=== PATIENT | male | born 1960 | race Caucasian/White ===

== ENCOUNTER 2016-10-10 23:59 | Inpatient (IN) | payer MEDICARE ==
[2016-10-11] MEDS ORDERED: LORazepam INJ* 2 MG/ML 1 ML VIAL IV PUSH ONE (00:12)
[2016-10-11] MEDS ORDERED: Morphine INJ* 10 MG/ML 1 ML SYRINGE ONE (01:27)
[2016-10-11] MEDS ORDERED: Midazolam* 1 MG/ML 5 ML VIAL (5 MG) ONE ×2 (01:27→10:01)
[2016-10-11] MEDS ORDERED: Flumazenil* 0.1 MG/ML 5 ML MDV ONE (02:03)
[2016-10-11] MEDS ORDERED: Midazolam* 1 MG/ML 10 ML VIAL (10 MG) IV ONE (03:30)
--- NOTE | 2016-10-11 03:47 | ED ---
Zunilda Suarez SooYoung, scribed for Deep Adkins MD on 10/11/16 at 0017 . Lower Extremity - HPI Summary HPI Summary: A 56 y/o M HARSHIL presents to ED with c/o L hip pain onset [employer]UP [employer]PER[employer]. Pt states he tripped over an extension cord and landed on his left side. Pert SHx: L-hip replacement two weeks ago in [place]. - History of Current Complaint Chief Complaint: EDHipPelvisInjury Stated Complaint: HIP DISLOCATION Time Seen by Provider: 10/11/16 00:10 Hx Obtained From: Patient Mechanism Of Injury: Fall From A Standing Position Onset of Pain: Immediate, Prior to Arrival Onset/Duration: Still Present Severity Initially: Moderate Severity Currently: Moderate Pain Intensity: 7 Pain Scale Used: 0-10 Numeric Timing: Constant Location: Is Discrete @ - L hip Able to Bear Weight: No - Allergies/Home Medications Allergies/Adverse Reactions: Allergies Allergy/AdvReac Type Severity Reaction Status Date / Time Acetaminophen Allergy Unknown Itching Verified 10/11/16 03:15 [From Darvocet-N] Codeine Allergy Unknown Itching Verified 10/11/16 03:15 Oxycodone [From Percocet] Allergy Unknown Itching Verified 10/11/16 03:15 Propoxyphene Allergy Unknown Itching Verified 10/11/16 03:15 [From Darvocet-N] PMH/Surg Hx/FS Hx/Imm Hx Previously Healthy: No Endocrine/Hematology History: Reports: Hx Anticoagulant Therapy Denies: Hx Diabetes, Hx Anemia, Hx Unexplained Bleeding Cardiovascular History: Reports: Hx Hypertension, Other Cardiovascular Problems/ Disorders - Afib, palpitation Denies: Hx Aneurysm, Hx Angina, Hx Angioplasty, Hx Auto Implanted Cardiovert Defib, Hx Cardiac Arrest, Hx Cardiomegaly, Hx Congenital Heart Disease, Hx Congestive Heart Failure, Hx Coronary Artery Disease, Hx Deep Vein Thrombosis, Hx Embolism, Hx Hypercholesterolemia, Hx Hypotension, Hx Pacemaker/ICD, Hx Peripheral Vascular Disease, Hx Rheumatic Fever, Hx Syncope, Hx Valvular Heart Disease Respiratory History: Reports: Hx Asthma, Hx Pneumonia, Hx Sleep Apnea, Other Respiratory Problems/Disorders - use cpap at home Denies: Hx Chronic Bronchitis, Hx Chronic Obstructive Pulmonary Disease (COPD ), Hx Cystic Fibrosis, Hx Lung Cancer, Hx Pleural Effusion, Hx Pulmonary Edema, Hx Pulmonary Embolism GI History: Denies: Hx Cirrhosis, Hx Crohn's Disease, Hx Obstructive Bowel, Hx Ileostomy , Hx Pyloric Stenosis, Other GI Disorders Musculoskeletal History: Reports: Hx Bursitis - RIGHT LOWER SIDE/BACK Denies: Hx Arthritis, Hx Back Problems, Hx Fibromyalgia, Hx Gout, Hx Orthopedic Injury, Hx Osteoporosis, Hx Scoliosis, Hx Tendonitis, Other Musculoskeletal History Sensory History: Reports: Hx Contacts or Glasses Denies: Hx Cataracts, Hx Eye Injury, Hx Eye Prosthesis, Hx Glaucoma, Hx Legally Blind, Hx Macular Degeneration, Hx Vision Problem, Hx Deafness, Hx Hearing Aid, Hx Hearing Problem, Other Sensory Impairments Opthamlomology History: Reports: Hx Contacts or Glasses Denies: Hx Cataracts, Hx Eye Injury, Hx Eye Prosthesis, Hx Glaucoma, Hx Legally Blind, Hx Macular Degeneration, Hx Vision Problem, Other Sensory Impairments Neurological History: Reports: Other Neuro Impairments/Disorders - Numbness to upper L thigh Denies: Hx Dementia, Hx Developmental Delay, Hx Headaches, Hx Migraine, Hx Nerve Disease, Hx Seizures, Hx Spinal Cord Injury, Hx Transient Ischemic Attacks (TIA) Psychiatric History: Reports: Hx Anxiety, Hx Depression - Cancer History Cancer Type, 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, L breast, L arm Hx Chemotherapy: No Hx Radiation Therapy: No Hx Palliative Cancer Treatment: No - Surgical History Surgery Procedure, Year, and Place: Thyroidectomy; rotator cuff repair bilat; carpal tunnel right hand x 2, Skin tumor removed x2 Hx Anesthesia Reactions: No Infectious Disease History: No Infectious Disease History: Denies: Hx Clostridium Difficile, Hx Hepatitis, Hx Human Immunodeficiency Virus (HIV), Hx of Known/Suspected MRSA, Hx Shingles, Hx Tuberculosis, Hx Known/ Suspected VRE, Hx Known/Suspected VRSA, History Other Infectious Disease, Traveled Outside the [place] in Last 30 Days - Family History Known Family History: Positive: Other - pos: Breast CA, MGM - Social History Occupation: Disabled Lives: Alone Alcohol Use: None Alcohol Amount: 3-4 beers Hx Substance Use: No Substance Use Type: Reports: None Hx Tobacco Use: Yes Smoking Status (MU): Light Every Day Tobacco Smoker Type: Cigarettes Amount Used/How Often: 1ppd Length of Time of Smoking/Using Tobacco: 40yrs Have You Smoked in the Last Year: Yes Review of Systems Negative: Fever Positive: Arthralgia - L hip All Other Systems Reviewed And Are Negative: Yes Physical Exam Triage Information Reviewed: Yes Vital Signs On Initial Exam: Initial Vitals Temp 97.3 F 10/11/16 00:06 Vital Signs Reviewed: Yes Appearance: Positive: Well-Appearing, Pain Distress - moderate pain Skin: Positive: Warm Head/Face: Positive: Normal Head/Face Inspection Eyes: Positive: RYAN ENT: Positive: Hearing grossly normal Neck: Positive: Nontender Respiratory/Lung Sounds: Positive: Breath Sounds Present Cardiovascular: Positive: RRR Abdomen Description: Positive: Nontender, Soft Musculoskeletal: Positive: Other - lt hip shortened, obvious deformity Neurological: Positive: Sensory/Motor Intact Psychiatric: Positive: Affect/Mood Appropriate Diagnostics - Vital Signs Vital Signs Temp Pulse Resp BP Pulse Ox 10/11/16 00:08 97.3 F 88 24 134/77 92 10/11/16 00:06 97.3 F - Laboratory Lab Statement: Any lab studies that have been ordered have been reviewed, and results considered in the medical decision making process. - Radiology CXR Xray Interpretation: Positive (See Comments) - pending reading, see [facility]. Hip/Pelvis Xray Interpretation: Positive (See Comments) - pending reading, see [facility] Pelvis Xray Interpretation: Positive (See Comments) Re-Evaluation - Re-Evaluation 1 Re-Evaluation Time: 01:07 Change: Improved Comment: Discussing XR results with pt, will put hip back into place. unable to reduce hip with conscious sedation, d/w dr calderon, who will admit pt tonight and reduce in or in am Lower Extremity Course/Dx - Course Course Of Treatment: Pt is 56 y/o M HARSHIL who had hip replacement surgery two weeks ago, presents with pain to L hip after tripping and falling. Pt given Ativan, Versed, Morphine in ED. - Diagnoses Provider Diagnoses: Hip dislocation, left - Physician Notifications Discussed Care of Patient With: Dr. Calderon, ortho Time Discussed With Above Provider: 02:14 Instructed by Provider To: Admit As Inpatient - and MD will see in ED tomorrow AM Discharge - Discharge Plan Condition: Fair Disposition: ADMITTED TO [facility] The documentation as recorded by the Zunilda altamirano SooYoung accurately reflects the service I personally performed and the decisions made by me, Deep Adkins MD.
[2016-10-11] MEDS ORDERED: Ondansetron INJ* 2 MG/ML VIAL IV PRN ×2 (03:57→09:55)
[2016-10-11] MEDS ORDERED: HYDROcodone/ACETAMIN 5-325 MG* 1 TAB PO PRN ×2 (03:59)
[2016-10-11] MEDS ORDERED: NS 0.9% 1000 ML* 1,000 ML IV SCH (04:00)
[2016-10-11] MEDS: Morphine INJ* 2 MG/ML 1 ML SYRINGE IV PRN ×3 (05:06→13:57)
--- NOTE | 2016-10-11 07:48 | RAD ---
HISTORY: Fall, recent hip replacement, left hip pain COMPARISONS: None relevant VIEWS: 3, frontal views of the pelvis with frontal and crosstable lateral views of the left hip FINDINGS: BONE DENSITY: Normal. BONES: The patient is status post left hip arthroplasty. There is no hardware failure or osteolysis. There is dislocation of the femoral component with respect to the acetabular component. JOINTS: The patient is status post left hip arthroplasty. There is moderate to advanced osteoarthritis of the right hip ALIGNMENT: As noted above, there is superolateral dislocation of the femoral component with respect to the acetabular component of the left hip arthroplasty SOFT TISSUES: Unremarkable. OTHER FINDINGS: None. IMPRESSION: DISLOCATION OF LEFT HIP PROSTHESIS
--- NOTE | 2016-10-11 07:49 | RAD ---
HISTORY: Hip dislocation COMPARISONS: May 01, 2015 VIEWS:1: Single frontal portable view of the chest at 12:52 AM FINDINGS: LINES AND TUBES: None. CARDIOMEDIASTINAL SILHOUETTE: The cardiac silhouette is mildly enlarged. The cardiomediastinal silhouette is otherwise normal for portable technique. PLEURA: The costophrenic angles are sharp. No pleural abnormalities are noted. LUNG PARENCHYMA: The lungs are clear. ABDOMEN: The upper abdomen is clear. There is no subphrenic gas. BONES AND SOFT TISSUES: No bone or soft tissue abnormalities are noted. IMPRESSION: CARDIOMEGALY. NO ACTIVE CARDIOPULMONARY DISEASE.
--- NOTE | 2016-10-11 07:50 | RAD ---
HISTORY: The dislocation, status post reduction attempt COMPARISONS: Left hip dated October 11, 2016 VIEWS: 1, Single frontal view of the pelvis FINDINGS: BONE DENSITY: Normal. BONES: The patient is status post left hip arthroplasty. JOINTS: The patient is status post left hip arthroplasty. There is osteoarthritis of the right hip ALIGNMENT: There is persistent superolateral dislocation of the left hip prosthesis SOFT TISSUES: Unremarkable. OTHER FINDINGS: None. IMPRESSION: PERSISTENT DISLOCATION OF THE LEFT HIP PROSTHESIS
[2016-10-11] MEDS ORDERED: HYDROmorphone* 1 MG/ML 1 ML SYR ONE (08:14)
[2016-10-11 08:29] LABS: Hematocrit 36 % (42-52); Hemoglobin 12.3 g/dl (14.0-18.0); Mean Corpuscular HGB Conc 34 g/dl (31-36); Mean Corpuscular Hemoglobin 32 pg (27-31); Mean Corpuscular Volume 94 fL (80-94); Mean Platelet Volume 8 um3 (7.4-10.4); Red Blood Count 3.85 10^6/ul (4.0-5.4); Red Cell Distribution Width 13 % (10.5-15); White Blood Count 10.7 10^3/ul (3.5-10.8)
--- NOTE | 2016-10-11 08:35 | PN ---
Progress Note - Progress Note Note: Full note dictated. S/p left total hip by Dr. Holguin on September 24. Fall yesterday on stairs and dislocated hip. No presyncopal symptoms. A/P: left dislocated total hip plan closed reduction
[2016-10-11 08:40] LABS: BUN/Creatinine Ratio 8.2 (8-20); Calcium 8.3 mg/dL (8.6-10.3); EGFR African American 177.2 (>60); EGFR Non-African American 137.7 (>60); Potassium 3.1 mmol/L (3.5-5.0)
--- NOTE | 2016-10-11 08:58 | RAD ---
HISTORY: Preop evaluation COMPARISONS: October 11, 2016 at 12:57 AM VIEWS:1: Single frontal portable view of the chest at 7:34 AM FINDINGS: LINES AND TUBES: None. CARDIOMEDIASTINAL SILHOUETTE: The cardiac silhouette is at the upper limits of normal in size. The cardiac silhouette is otherwise unremarkable.. PLEURA: The costophrenic angles are sharp. No pleural abnormalities are noted. LUNG PARENCHYMA: The lungs are clear. ABDOMEN: The upper abdomen is clear. There is no subphrenic gas. BONES AND SOFT TISSUES: No bone or soft tissue abnormalities are noted. IMPRESSION: NO ACTIVE CARDIOPULMONARY DISEASE.
--- NOTE | 2016-10-11 09:33 | HP ---
CC: Spencer Woodard MD, [facility]. HISTORY AND PHYSICAL: DATE OF ADMISSION: 10/11/16 CHIEF COMPLAINT: Left hip pain. HISTORY OF PRESENT ILLNESS: Mr. Soto is a 56-year-old gentleman, who underwent left total hip replacement surgery on 09/24/[address] Spencer Woodard, who is with [facility]. The surgery was done in [place], [place]. He has a history of AFib and asthma. He tells me this morning, he just takes aspirin for the AFib. He does not require any oxygen or anything like that for his asthma. He does follow with a service center representative here in [place]. He had had an uneventful postop course after the total hip replacement and says he was doing very well until he had a fall on the stairs yesterday, dislocating the total hip. Prior to that, the hip felt stable and really he did not have any issues with it. The pain currently is severe. He denies any numbness or tingling in the feet. He denies any pre-fall dizziness or presyncopal type symptoms, says it was more of a mechanical fall. PAST MEDICAL HISTORY: This is significant for AFib and asthma. He is not on oxygen at home. PAST SURGICAL HISTORY: Left total hip replacement done on 09/24/[address] Woodard. He denies any heart, lungs, or any abdominal surgeries. MEDICATIONS: The patient's home medications were reviewed. These include aspirin and atenolol. ALLERGIES: He has itching with OXYCODONE, CODEINE, DARVOCET. SOCIAL HISTORY: He does live at home in [place]. He is not a smoker. He is on disability and when asked him why, he says it is due to his generalized body pain. REVIEW OF SYSTEMS: As above. This includes left hip pain, otherwise negative. PHYSICAL EXAMINATION GENERAL: Awake, alert, and oriented. Mild distress and discomfort. Mood and affect are normal. EXTREMITIES: Left lower extremity is short and internally rotated. He has good tib ant and gastroc soleus function distally. The leg is warm and well perfused. The pelvis is stable and the knee is nontender without any significant swelling or bruising in his ankle and foot. Right lower extremity assessed good alignment. No tenderness, no pain with logroll. Good neurological function distally. DIAGNOSTIC STUDIES/LAB DATA: Imaging: X-rays of the left pelvis and left hip show a dislocated left total hip prosthesis. IMPRESSION: First time dislocation of left total hip after the hip was put in earlier this month on September 24. This did occur after a mechanical fall. PLAN: We will plan for closed reduction under anesthesia. I think that since this happened with a mechanical fall, he does have a decent chance with the hip being stable after the hip is reduced. We will get the reduction done and then have him follow up with Dr. Woodard and keep him on posterior hip precautions until he follows up with Dr. Woodard. [id number]/[facility] #: [id number] MTDLy
[2016-10-11] MEDS ORDERED: Famotidine IV* 10 MG/ML 2 ML (20 mg) IV ONE (09:52)
[2016-10-11] MEDS ORDERED: Dexamethasone IV* 4 MG/ML 1 ML (4 MG) IV SLOW PU ONE (09:52)
[2016-10-11] MEDS ORDERED: Atenolol TAB* 50 MG PO ONE (09:54)
[2016-10-11] MEDS ORDERED: Levalbuterol 0.63MG/3ML NEB INH ONE (09:55)
[2016-10-11] MEDS ORDERED: HYDROmorphone* 1 MG/ML 1 ML SYR IV PRN (09:55)
[2016-10-11] MEDS ORDERED: fentaNYL* 50 MCG/ML 2 ML VIAL (100 MCG VIAL) IV PRN (09:55)
[2016-10-11] MEDS ORDERED: Atenolol TAB* 25 MG ONE (09:56)
[2016-10-11] MEDS ORDERED: Levalbuterol 1.25MG/0.5ML NEB ONE (09:57)
[2016-10-11] MEDS ORDERED: Famotidine IV* 10 MG/ML 2 ML (20 mg) ONE (09:57)
[2016-10-11] MEDS ORDERED: Dexamethasone IV* 4 MG/ML 1 ML (4 MG) ONE (09:57)
[2016-10-11] MEDS ORDERED: fentaNYL* 50 MCG/ML 2 ML VIAL (100 MCG VIAL) ONE (10:01)
[2016-10-11] MEDS ORDERED: Ondansetron INJ* 2 MG/ML VIAL ONE (10:01)
[2016-10-11] MEDS ORDERED: Ketorolac INJ* 30 MG/ML 1 ML VIAL ONE (10:01)
[2016-10-11] MEDS ORDERED: Chloroprocaine 2%* 20 ML VIAL ONE (10:01)
[2016-10-11] MEDS ORDERED: KETAMINE HCL* 50 MG/ML 10 ML VIAL ONE (10:03)
--- NOTE | 2016-10-11 11:08 | RAD ---
HISTORY: Post reduction after dislocation COMPARISONS: October 11, 2016 at 1:17 AM VIEWS: 2, frontal and frog-leg views of the left hip FINDINGS: BONE DENSITY: Normal. BONES: The patient is status post left hip arthroplasty. There is no hardware failure or osteolysis. JOINTS: There is no arthropathy. ALIGNMENT: There has been interval reduction of the dislocation. Alignment is anatomic SOFT TISSUES: Unremarkable. OTHER FINDINGS: None. IMPRESSION: STATUS POST LEFT HIP ARTHROPLASTY. INTERVAL REDUCTION OF DISLOCATION
[2016-10-11] MEDS ORDERED: EPHEDrine (Pressors)* 50 MG/ML VIAL ONE (11:35)
[2016-10-11] MEDS ORDERED: Phenylephrine INJ* 10 MG/ML 1 ML VIAL (10 MG) ONE (11:35)
[2016-10-11] MEDS ORDERED: Phenylephrine IV* 40 MCG/ML 10 ML SYRINGE ONE (11:35)
[2016-10-11] MEDS ORDERED: Ibuprofen TAB* 600 MG PO PRN (14:23)
[2016-10-11] MEDS ORDERED: oxyCODONE TAB* 5 MG TAB PO PRN ×2 (14:42→14:43)
[2016-10-11] MEDS ORDERED: Nicotine Inhaler* 10 MG AMP Q2H PRN CRAVING INH (18:00)
[2016-10-11] MEDS ORDERED: Mouth Piece, Nicotine* 1 EACH CARTRIDGE INH ONE (18:00)
[2016-10-11 18:38] VITALS: BP 133/77
--- NOTE | 2016-10-11 19:44 | PN ---
Progress Note - Progress Note Note: I was called by the floor stating that Mr. Soto was agitated and wanted to leave the hospital. I spoke with Mr. Soto to gauge whether or not he was confused. He is awake, alert, and oriented to person, place, and time. He knows where he is going and will have a financial coach with him at home tonight. I reviewed posterior hip precautions with him and he was able to tell me all the body positions he needs to avoid. I counseled with him to sleep with the abductor pillow for a few nights. He has an appointment with Dr. Holguin this Thursday. We will discharge him at this time.
--- NOTE | 2016-10-11 20:27 | OP ---
OPERATIVE REPORT: DATE OF OPERATION: 10/11/16 - inpatient, room #336-01 DATE OF : 64 SURGEON: Gonzalo Hammer MD POLITICAL SCIENCE CHAIR: FAVIAN Powell ANESTHESIOLOGIST: Dr. Nation. ANESTHESIA: Spinal. PRE-OP DIAGNOSIS: Dislocated left total hip replacement. POST-OP DIAGNOSIS: Dislocated left total hip replacement. OPERATIVE PROCEDURE: Closed reduction of left total hip dislocation. INDICATIONS: Jairo had his total hip done by Dr. Spencer Woodard on 09/24/16, done in [place], [place]. He had a fall at home and dislocated the hip. He came in and was admitted overnight to the hospital and is brought for closed reduction of the hip now. We had discussed the risks of recurrent instability and fracture during the closed reduction. I told him that we would not be opening it to reduce it and if it would stay dislocated, I would send him down to [place] to have Dr. Woodard address this further. ESTIMATED BLOOD LOSS: None. COMPLICATIONS: None. FINDINGS: None. DESCRIPTION OF PROCEDURE: Jairo was seen in the preoperative holding area and the correct side, site, and procedure were identified. We came back to the operating room where spinal was performed. After we had a formal time-out, I flexed the hip and pulled traction through the hip while I gently internally and externally rotated the hip. The hip was felt to slide back into place. The leg was brought back out into extension and laid on the bed. I brought in the portable x-ray machine and an AP and frog leg lateral of the hip were obtained, which showed reduction of the total hip replacement. He was then placed in an abduction pillow and taken to the recovery room in stable condition. POSTOPERATIVE PLAN: We will wait until the spinal wears off and then we will have him work with the therapist to review posterior hip precautions. I think there is a decent chance that the hip will be stable since it dislocated after a pretty significant fall at home. I will have him follow up with Dr. Woodard. [id number]/[facility] #: [id number] [facility]
--- NOTE | 2016-10-12 01:50 | DS ---
DISCHARGE SUMMARY: DATE OF ADMISSION: 10/11/16 DATE OF DISCHARGE: 10/11/16 PROVIDER: Dr. Gonzalo Hammer. ADMITTING DIAGNOSIS: Left total hip replacement dislocation. DISCHARGE DIAGNOSIS: Left total hip replacement dislocation, status post closed reduction under anesthesia. HISTORY OF PRESENT ILLNESS: Mr. Soto is a 56-year-old gentleman, who presented to the emergency room after a fall earlier in the day. He states that he underwent a left total hip replacement by Dr. Spencer Woodard through [facility] on 09/24/16. He has been doing well since the time of the surgery. However, he did trip and fall on the stairs. Prior to that, his hip felt stable and he had no issues. There was no evidence of a syncopal event. HOSPITAL COURSE: On 10/11/16, the patient was admitted to the short stay surgical unit through the emergency department. He underwent closed reduction of the hip dislocation under spinal anesthetic with no complications. He recovered briefly in the postanesthesia care unit and was transferred to the short stay surgical unit in stable condition. The patient's pain was well controlled after the spinal medication wore off. He was then anxious to be discharged home. The patient did have some abnormalities on his chemistry for which further monitoring was preferred. However, the patient was anxious to be discharged home. He spoke with Dr. Hammer via telephone just prior to discharge , who felt that the patient was alert and oriented to person, place, and time and in a good mental status. He was able to review posterior hip precautions with the patient and the patient also has someone to look after him through the weekend. For this reason, he was found to be discharged home in stable condition. DISCHARGE MEDICATIONS: The patient will be discharged home to resume his home medications of: 1. Crabtree 5/325 mg 1 to 2 tabs p.o. q.4 to 6 hours p.r.n. 2. Norvasc 5 mg p.o. q. day. 3. Omeprazole 40 mg p.o. q. day. 4. Multivitamin 1 tab p.o. q. day. 5. Dulera inhaler 2 puffs inhaled b.i.d. 6. Gabapentin 300 mg p.o. t.i.d. and 300 mg p.o. q.h.s. 7. Cymbalta 60 mg p.o. q. day. 8. Atenolol 100 mg p.o. q. day. 9. Aspirin 81 mg p.o. q. day. 10. Amitriptyline 150 mg p.o. q.h.s. 11. Albuterol inhaler 2 puffs inhaled b.i.d. p.r.n. 12. Ibuprofen 600 mg p.o. q.6 hours p.r.n. DISCHARGE INSTRUCTIONS: The patient is understanding to call Dr. Woodard's office this week and followup for the hip dislocation. He is understanding to return to the emergency room with any significant hip pain, chest pain, shortness of breath, fever greater than 101.5, calf pain or swelling. All of the patient's questions were answered to his full satisfaction. FAVIAN DUKE [id number]/[facility] #: [id number] JESE
== END 2016-10-11 19:56 | disposition home or self-care (01) | DRG 561 ==
LOC: ED 23:59 → SSU 10-11 04:09
PROVIDERS: ADMIT Orthopaedic Surgery Hand Surgery; ATTEND Orthopaedic Surgery Hand Surgery
PROC: 0SWBXJZ Revision of Synthetic Substitute in Left Hip Joint, External Approach (ICD-10-PCS; principal; 2016-10-11 10:00)
DX: T84.021A Dislocation of internal left hip prosthesis, initial encounter (principal); I48.91 Unspecified atrial fibrillation; I10 Essential (primary) hypertension; W01.0XXA Fall on same level from slipping, tripping and stumbling without subsequent striking against object, initial encounter; J45.909 Unspecified asthma, uncomplicated; F41.9 Anxiety disorder, unspecified; F32.9 Major depressive disorder, single episode, unspecified; F17.210 Nicotine dependence, cigarettes, uncomplicated; R45.1 Restlessness and agitation; E66.9 Obesity, unspecified; G47.33 Obstructive sleep apnea (adult) (pediatric); Y79.2 Prosthetic and other implants, materials and accessory orthopedic devices associated with adverse incidents; Z88.6 Allergy status to analgesic agent; Z88.5 Allergy status to narcotic agent; Z88.8 Allergy status to other drugs, medicaments and biological substances; Z87.01 Personal history of pneumonia (recurrent); Z85.828 Personal history of other malignant neoplasm of skin; Z85.3 Personal history of malignant neoplasm of breast; Z85.89 Personal history of malignant neoplasm of other organs and systems; Z80.3 Family history of malignant neoplasm of breast; Y92.008 Other place in unspecified non-institutional (private) residence as the place of occurrence of the external cause; Z68.27 Body mass index [BMI] 27.0-27.9, adult; Z79.82 Long term (current) use of aspirin
CPT/HCPCS: 36415; 71010; 72170; 80048; 85027; 85610; 99406; A9270-GY; J1100; J1170; J1885; J2060; J2250; J2270; J2400; J2405; J3010

== ENCOUNTER 2017-02-09 23:05 | Emergency (ER) | payer MEDICARE ==
[2017-02-10] MEDS ORDERED: NS 0.9% 1000 ML* 1,000 ML IV SCH (01:30)
[2017-02-10 02:19] LABS: Hematocrit 43 % (42-52); Hemoglobin 14.5 g/dl (14.0-18.0); Mean Corpuscular HGB Conc 34 g/dl (31-36); Mean Corpuscular Hemoglobin 33 pg (27-31); Mean Corpuscular Volume 97 fL (80-94); Mean Platelet Volume 8 um3 (7.4-10.4); Red Blood Count 4.43 10^6/ul (4.0-5.4); Red Cell Distribution Width 16 % (10.5-15); White Blood Count 8.6 10^3/ul (3.5-10.8)
[2017-02-10 02:36] LABS: Albumin 3.9 g/dL (3.2-5.2); BUN/Creatinine Ratio 10.1 (8-20); C Reactive Protein 23.2 mg/L (< 5.00); EGFR African American 114.6 (>60); EGFR Non-African American 89.1 (>60); Globulin 4.1 g/dL (2-4); Magnesium 1.8 mg/dL (1.9-2.7); Potassium 3.4 mmol/L (3.5-5.0); Total Bilirubin 0.4 mg/dL (0.2-1.0)
[2017-02-10 02:44] LABS: TSH (Thyroid Stimulating Horm) 6.5 mcIU/mL (0.34-5.60)
[2017-02-10 03:12] LABS: Urine Bilirubin Negative (Negative); Urine Glucose Negative (Negative); Urine Nitrite Negative (Negative)
[2017-02-10 04:21] VITALS: BP 94/65
[2017-02-10] MEDS ORDERED: Magnesium Oxide TAB* 400 MG PO ONE (04:24)
[2017-02-10] MEDS ORDERED: Potassium Chlor TAB* 20 MEQ TAB.ER PO ONE (04:24)
[2017-02-10 05:05] LABS: Free T4 0.89 ng/dL (0.61-1.12)
[2017-02-10 05:59] LABS: Total T3 0.95 ng/mL (0.87-1.78)
--- NOTE | 2017-02-10 06:56 | RAD ---
INDICATION: Bilateral arm tingling 3 days after head trauma COMPARISON: Chest x-ray dated October 11, 2016 TECHNIQUE: Single AP portable view of the chest was obtained. FINDINGS: Image quality is compromised due to the relative inferiority of a portable chest x-ray. The heart and mediastinum exhibit normal size and contour. The lungs are grossly clear. There is no evidence of a large pleural effusion. Visualized bones are normal for the patient's age. IMPRESSION: No radiographic evidence for acute cardiopulmonary abnormality on this portable chest x-ray.
--- NOTE | 2017-02-10 06:58 | RAD ---
INDICATION: Foot and ankle injury 3 days earlier COMPARISON: None. TECHNIQUE: 3 views of the left ankle and 3 views of the left foot were obtained. FINDINGS: The bones of the ankle are well-corticated and appropriately aligned. The ankle mortise is symmetric. There is no asymmetric swelling overlying either malleolus. Best depicted on the oblique view of the foot, there is the appearance of a slightly displaced fracture at the distal head of the fourth metatarsal. There is a small degree of impaction. The remaining visualized bones are intact and appropriately aligned. IMPRESSION: QUESTIONABLE MINIMALLY IMPACTED FRACTURE INVOLVING THE DISTAL HEAD OF THE LEFT FOURTH METATARSAL. PLEASE CORRELATE TO THE PATIENT'S PHYSICAL EXAMINATION. If the patient's symptoms persist, follow-up imaging is recommended.
--- NOTE | 2017-02-10 07:00 | RAD ---
INDICATION: Right hip pain 3 days after trip and fall injury in a patient 3 weeks status post right hip JESSICA COMPARISON: Preoperative radiograph October 11, 2016 TECHNIQUE: 3 views of the right hip were obtained. FINDINGS: In the AP projection the bilateral hip prostheses are anatomically aligned. The right hip prosthesis is anatomically aligned in the AP and lateral projections. There is no evidence of periprosthetic fracture or loosening. Visualized bones are otherwise intact and appropriately aligned. IMPRESSION: Anatomic alignment of bilateral hip prostheses. If the patient's symptoms persist follow-up imaging is recommended.
--- NOTE | 2017-02-10 07:03 | ED ---
Shellie Suarez Nilda, scribed for Easton Aviles MD on 02/10/17 at 0429 . Adult Trauma - HPI Summary HPI Summary: Pt is a 56 y.o M presenting to [facility] s/p a fall that occurred 2 days ago. The patient tripped over wood in his lawn and could not get up for 30 mins due to his hip replacements. Patient reports that he can ambulate (though experiences pain). He notes left ankle and foot pain, left elbow pain, right hip pain, and intermittent bilateral arm tingling (exacerbated a few hours after his fall but has been present for a few months). Arm tingling is aggravated by movement. Patient denies arm pain, headache, neck pain, CP, N/V, diaphoresis, SOB, and abdominal pain. PMHx of mild FL 2 years ago that was treated with medication. During that FL, he experienced both CP and arm tingling. Patient is currently on atenolol, 81 mg aspirin, and GERD medication. He is currently not on HLD medication. - History of Current Complaint Chief Complaint: EDChestPainROMI Stated Complaint: CHEST PAIN, HIP PAIN, FOOT PAIN Time Seen by Provider: 02/10/17 01:04 Hx Obtained From: Patient Mechanism of Injury: Fall Ambulatory at the Scene: Yes - abulatory with pain after 30 mins s/p fall Onset Severity: Severe Current Severity: Severe Pain Intensity: 8 Pain Scale Used: 0-10 Numeric Location: Other - left ankle pain, left foot pain, left elbow pain, right hip pain Aggravating Factor(s): Movement, Ambulation Associated Signs & Symptoms: Positive: Numbness/Weakness - bilateral arm tingling, Ecchymosis - Additional Pertinent History Primary Care Physician: [id number] - Allergy/Home Medications Allergies/Adverse Reactions: Allergies Allergy/AdvReac Type Severity Reaction Status Date / Time Acetaminophen AdvReac Unknown Itching Verified 02/09/17 23:25 [From Darvocet-N] Codeine AdvReac Unknown Itching Verified 02/09/17 23:25 Oxycodone [From Percocet] AdvReac Unknown Itching Verified 02/09/17 23:25 Propoxyphene AdvReac Unknown Itching Verified 02/09/17 23:25 [From Darvocet-N] PMH/Surg Hx/FS Hx/Imm Hx Endocrine/Hematology History: Reports: Hx Anticoagulant Therapy Denies: Hx Diabetes, Hx Anemia, Hx Unexplained Bleeding Cardiovascular History: Reports: Hx Hypertension, Other Cardiovascular Problems/ Disorders - Afib, palpitation Denies: Hx Aneurysm, Hx Angina, Hx Angioplasty, Hx Auto Implanted Cardiovert Defib, Hx Cardiac Arrest, Hx Cardiomegaly, Hx Congenital Heart Disease, Hx Congestive Heart Failure, Hx Coronary Artery Disease, Hx Deep Vein Thrombosis, Hx Embolism, Hx Hypercholesterolemia, Hx Hypotension, Hx Pacemaker/ICD, Hx Peripheral Vascular Disease, Hx Rheumatic Fever, Hx Syncope, Hx Valvular Heart Disease Respiratory History: Reports: Hx Asthma, Hx Pneumonia, Hx Sleep Apnea, Other Respiratory Problems/Disorders - use cpap at home Denies: Hx Chronic Bronchitis, Hx Chronic Obstructive Pulmonary Disease (COPD ), Hx Cystic Fibrosis, Hx Lung Cancer, Hx Pleural Effusion, Hx Pulmonary Edema, Hx Pulmonary Embolism GI History: Denies: Hx Cirrhosis, Hx Crohn's Disease, Hx Obstructive Bowel, Hx Ileostomy , Hx Pyloric Stenosis, Other GI Disorders Musculoskeletal History: Reports: Hx Bursitis - RIGHT LOWER SIDE/BACK Denies: Hx Arthritis, Hx Back Problems, Hx Fibromyalgia, Hx Gout, Hx Orthopedic Injury, Hx Osteoporosis, Hx Scoliosis, Hx Tendonitis, Other Musculoskeletal History Sensory History: Reports: Hx Contacts or Glasses Denies: Hx Cataracts, Hx Eye Injury, Hx Eye Prosthesis, Hx Glaucoma, Hx Legally Blind, Hx Macular Degeneration, Hx Vision Problem, Hx Deafness, Hx Hearing Aid, Hx Hearing Problem, Other Sensory Impairments Opthamlomology History: Reports: Hx Contacts or Glasses Denies: Hx Cataracts, Hx Eye Injury, Hx Eye Prosthesis, Hx Glaucoma, Hx Legally Blind, Hx Macular Degeneration, Hx Vision Problem, Other Sensory Impairments Neurological History: Reports: Other Neuro Impairments/Disorders - Numbness to upper L thigh Denies: Hx Dementia, Hx Developmental Delay, Hx Headaches, Hx Migraine, Hx Nerve Disease, Hx Seizures, Hx Spinal Cord Injury, Hx Transient Ischemic Attacks (TIA) Psychiatric History: Reports: Hx Anxiety, Hx Depression - Cancer History Cancer Type, 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, L breast, L arm Hx Chemotherapy: No Hx Radiation Therapy: No Hx Palliative Cancer Treatment: No - Surgical History Surgery Procedure, Year, and Place: Thyroidectomy; rotator cuff repair bilat; carpal tunnel right hand x 2, Skin tumor removed x2 Hx Anesthesia Reactions: No Infectious Disease History: No Infectious Disease History: Denies: Hx Clostridium Difficile, Hx Hepatitis, Hx Human Immunodeficiency Virus (HIV), Hx of Known/Suspected MRSA, Hx Shingles, Hx Tuberculosis, Hx Known/ Suspected VRE, Hx Known/Suspected VRSA, History Other Infectious Disease, Traveled Outside the [place] in Last 30 Days - Family History Known Family History: Positive: Other - pos: Breast CA, MGM - Social History Alcohol Use: None Alcohol Amount: 3-4 beers Hx Substance Use: No Substance Use Type: Reports: None Hx Tobacco Use: Yes Smoking Status (MU): Former Smoker Type: Cigarettes Amount Used/How Often: 1ppd Length of Time of Smoking/Using Tobacco: 40yrs Have You Smoked in the Last Year: Yes Review of Systems Negative: Skin Diaphoresis Negative: Chest Pain Negative: Shortness Of Breath Negative: Abdominal Pain, Vomiting, Nausea Positive: Other - left ankle pain, left foot pain, left elbow pain, right hip pain; negative: arm pain, neck pain, Positive: Numbness - intermittent bilateral arm tingling. Negative: Headache All Other Systems Reviewed And Are Negative: Yes Physical Exam - Summary Physical Exam Summary: General: well-appearing, no pain distress Skin: warm, color reflects adequate perfusion, dry Head: normal Eyes: EOMI, RYAN ENT: normal Neck: supple, nontender Respiratory: wheezing bilaterally Cardiovascular: RRR, pulses 2+, good capillary refill Abdomen: soft, nontender Bowel: present Musculoskeletal: strength/ROM intact, swelling left ankle and left foot tenderness to palpation, right greater trochanter tenderness. Neurological: normal, sensory/motor intact, A&O x3 Psychological: affect/mood appropriate Triage Information Reviewed: Yes Vital Signs On Initial Exam: Initial Vitals Temp Pulse Resp BP Pulse Ox 97.2 F 85 18 128/72 92 02/09/17 23:23 02/09/17 23:23 02/09/17 23:23 02/09/17 23:23 02/09/17 23:23 Vital Signs Reviewed: Yes Diagnostics - Vital Signs Vital Signs Temp Pulse Resp BP Pulse Ox 02/10/17 00:30 76 26 120/73 92 02/10/17 00:18 77 19 94 02/10/17 00:16 131/76 02/09/17 23:23 97.2 F 85 18 128/72 92 - Laboratory Lab Results: Lab Results 02/10/17 02/10/17 02/10/17 Range/Units 02:04 02:04 02:04 WBC (3.5-10.8) 10^3/ul RBC (4.0-5.4) 10^6/ul Hgb (14.0-18.0) g/dl Hct (42-52) % MCV (80-94) fL MCH (27-31) pg MCHC (31-36) g/dl RDW (10.5-15) % Plt Count (150-450) 10^3/ul MPV (7.4-10.4) um3 Neut % (Auto) (38-83) % Lymph % (Auto) (25-47) % [place] % (Auto) (1-9) % Eos % (Auto) (0-6) % Baso % (Auto) (0-2) % Absolute Neuts (auto) (1.5-7.7) 10^3/ul Absolute Lymphs (auto) (1.0-4.8) 10^3/ul Absolute Monos (auto) (0-0.8) 10^3/ul Absolute Eos (auto) (0-0.6) 10^3/ul Absolute Basos (auto) (0-0.2) 10^3/ul Absolute Nucleated RBC 10^3/ul Nucleated RBC % INR (Anticoag Therapy) 0.87 L (0.89-1.11) APTT 28.1 (26.0-36.3) seconds Sodium 131 L (133-145) mmol/L Potassium 3.4 L (3.5-5.0) mmol/L Chloride 95 L (101-111) mmol/L Carbon Dioxide 25 (22-32) mmol/L Anion Gap 11 (2-11) mmol/L BUN 9 (6-24) mg/dL Creatinine 0.89 (0.67-1.17) mg/dL Est GFR ( Amer) 114.6 (>60) Est GFR (Non-Af Amer) 89.1 (>60) BUN/Creatinine Ratio 10.1 (8-20) Glucose 84 (70-100) mg/dL Lactic Acid (0.5-2.0) mmol/L Calcium 9.0 (8.6-10.3) mg/dL Magnesium 1.8 L (1.9-2.7) mg/dL Total Bilirubin 0.40 (0.2-1.0) mg/dL AST 19 (13-39) U/L ALT 11 (7-52) U/L Alkaline Phosphatase 88 (34-104) U/L Total Creatine Kinase 50 (10-223) U/L CK-MB (CK-2) 4.5 (0.6-6.3) ng/mL Troponin I 0.00 (<0.04) ng/mL C-Reactive Protein 23.20 H (< 5.00) mg/L B-Natriuretic Peptide 26 ( - 100) pg/mL Total Protein 8.0 (6.4-8.9) g/dL Albumin 3.9 (3.2-5.2) g/dL Globulin 4.1 H (2-4) g/dL Albumin/Globulin Ratio 1.0 (1-3) Lipase 39 (11.0-82.0) U/L TSH 6.50 H (0.34-5.60) mcIU/mL Free T4 0.89 (0.61-1.12) ng/dL Total T3 0.95 (0.87-1.78) ng/mL Urine Color Urine Appearance Urine pH (5-9) Ur Specific [place] (1.010-1.030) Urine Protein (Negative) Urine Ketones (Negative) Urine Blood (Negative) Urine Nitrate (Negative) Urine Bilirubin (Negative) Urine Urobilinogen (Negative) Ur Leukocyte Esterase (Negative) Urine Glucose (Negative) 02/10/17 02/10/17 02/10/17 Range/Units 02:04 02:55 02:55 WBC 8.6 (3.5-10.8) 10^3/ul RBC 4.43 (4.0-5.4) 10^6/ul Hgb 14.5 (14.0-18.0) g/dl Hct 43 (42-52) % MCV 97 H (80-94) fL MCH 33 H (27-31) pg MCHC 34 (31-36) g/dl RDW 16 H (10.5-15) % Plt Count 338 (150-450) 10^3/ul MPV 8 (7.4-10.4) um3 Neut % (Auto) 52.7 (38-83) % Lymph % (Auto) 28.7 (25-47) % [place] % (Auto) 10.2 H (1-9) % Eos % (Auto) 8.1 H (0-6) % Baso % (Auto) 0.3 (0-2) % Absolute Neuts (auto) 4.6 (1.5-7.7) 10^3/ul Absolute Lymphs (auto) 2.5 (1.0-4.8) 10^3/ul Absolute Monos (auto) 0.9 H (0-0.8) 10^3/ul Absolute Eos (auto) 0.7 H (0-0.6) 10^3/ul Absolute Basos (auto) 0 (0-0.2) 10^3/ul Absolute Nucleated RBC 0 10^3/ul Nucleated RBC % 0 INR (Anticoag Therapy) (0.89-1.11) APTT (26.0-36.3) seconds Sodium (133-145) mmol/L Potassium (3.5-5.0) mmol/L Chloride (101-111) mmol/L Carbon Dioxide (22-32) mmol/L Anion Gap (2-11) mmol/L BUN (6-24) mg/dL Creatinine (0.67-1.17) mg/dL Est GFR ( Amer) (>60) Est GFR (Non-Af Amer) (>60) BUN/Creatinine Ratio (8-20) Glucose (70-100) mg/dL Lactic Acid 0.9 (0.5-2.0) mmol/L Calcium (8.6-10.3) mg/dL Magnesium (1.9-2.7) mg/dL Total Bilirubin (0.2-1.0) mg/dL AST (13-39) U/L ALT (7-52) U/L Alkaline Phosphatase (34-104) U/L Total Creatine Kinase (10-223) U/L CK-MB (CK-2) (0.6-6.3) ng/mL Troponin I (<0.04) ng/mL C-Reactive Protein (< 5.00) mg/L B-Natriuretic Peptide ( - 100) pg/mL Total Protein (6.4-8.9) g/dL Albumin (3.2-5.2) g/dL Globulin (2-4) g/dL Albumin/Globulin Ratio (1-3) Lipase (11.0-82.0) U/L TSH (0.34-5.60) mcIU/mL Free T4 (0.61-1.12) ng/dL Total T3 (0.87-1.78) ng/mL Urine Color Straw Urine Appearance Clear Urine pH 5.0 (5-9) Ur Specific [place] 1.002 L (1.010-1.030) Urine Protein Negative (Negative) Urine Ketones Negative (Negative) Urine Blood Negative (Negative) Urine Nitrate Negative (Negative) Urine Bilirubin Negative (Negative) Urine Urobilinogen Negative (Negative) Ur Leukocyte Esterase Negative (Negative) Urine Glucose Negative (Negative) Result Diagrams: 02/10/17 02:04 02/10/17 02:04 Lab Statement: Any lab studies that have been ordered have been reviewed, and results considered in the medical decision making process. - Radiology Hip XR Xray Interpretation: No Acute Changes Radiology Interpretation Completed By: ED Physician Foot XR Xray Interpretation: Positive (See Comments) - Fracture of tjhe distal 4th metatarsal Radiology Interpretation Completed By: ED Physician Ankle XR Xray Interpretation: No Acute Changes - CXR Radiology Interpretation Completed By: ED Physician CXR Xray Interpretation: No Acute Changes Radiology Interpretation Completed By: ED Physician - CT Brain CT CT Interpretation: No Acute Changes - No acute pathology. ED physician reviewed radiology report and agrees. CT Interpretation Completed By: Radiologist C-Spine CT CT Interpretation: No Acute Changes - No fracture. ED physician reviewed radiology report and agrees. CT Interpretation Completed By: Radiologist - EKG 2313 Cardiac Rate: NL - 85 bpm EKG Rhythm: Sinus Rhythm ST Segment: Normal Ectopy: None Re-Evaluation - Re-Evaluation First Eval Re-Evaluation Time: 04:17 Change: Unchanged Comment: ED Physician discussed lab results with patient. Adult Trauma Course/Dx - Course Course Of Treatment: DISCUSSED RESULTS WITH PATIENT. CAM BOOT PLACED. NO CHEST PAIN IN ED. WILL F/U WITH PMD/ORTHOPEDICS; RETURN IF WORSE. NO CRITICAL CARE TIME. Assessment/Plan: Medications reviewed. Elevated BP noted and advised follow up. - Diagnoses Provider Diagnoses: Head injury, Sinusitis, Neck arthritis, Paresthesia, Fracture of metatarsal of left foot, closed, Hypothyroid, Hypomagnesemia, Hypokalemia Discharge - Discharge Plan Condition: Stable Disposition: HOME Prescriptions: Amoxicillin/Clavulanate TAB* [Augmentin TAB 875*] 875 mg PO BID #20 tab Patient Education Materials: Sinusitis (ED), Foot Fracture in Adults (ED), Hypokalemia (ED), Hypothyroidism (ED), Paresthesia (ED), Hypomagnesemia (ED) Referrals: Ernesto Collier MD [Primary Care Provider] - Additional Instructions: FOLLOW UP WITH YOUR DOCTOR. RETURN TO THE EMERGENCY DEPARTMENT FOR ANY WORSENING OF YOUR CONDITION OR QUESTIONS OR CONCERNS. The documentation as recorded by the Shellie altamirano Nilda accurately reflects the service I personally performed and the decisions made by me, Easton Aviles MD.
--- NOTE | 2017-02-10 07:10 | RAD ---
indication: Bilateral arm tingling COMPARISON: None A CT scan of the brain and c-spine was performed without intravenous contrast enhancement. Contiguous axial sections were obtained from the lung apices through the vertex. BRAIN: The ventricles, cisterns and sulci exhibit a mild degree of symmetrical involutional changes probably involving the sulci and cisterns and less so the ventricles. No significant focal abnormality or mass effect is seen. The roca-white differentiation is adequately maintained. There is no evidence for intracranial hemorrhage. No significant bony abnormality is present. The mastoid air cells are appropriately aerated. There is very mild mucosal thickening of the sphenoid sinuses and ethmoid air cells. C-SPINE: On the sagittal view images there is a mild degree of reversal of the normal cervical lordosis. The vertebral bodies and facet joints are otherwise appropriately aligned. Degenerative changes include mild loss of intervertebral disc height most severely involving C5/C6. At the same levels there is a mild degree of uncovertebral hypertrophy best depicted on the coronal plane images. There is no acute fracture or dislocation. There is no hyperdense material in the cervical canal to indicate hemorrhage. The visualized musculature and soft tissues are normal. There is no gross lymphadenopathy visualized. Coarse atherosclerotic calcification is noted at the left greater than right carotid bulbs. Surgical clips are noted at the right upper cervical region. The visualized portion of the lung apices are clear. IMPRESSION: 1. No CT apparent acute intracranial abnormality. 2. Mild paranasal sinusitis. 3. Mild degenerative changes of the cervical spine with reversal of the normal cervical lordosis.
== END 2017-02-10 05:27 | disposition home or self-care (01) ==
LOC: ED 23:05
DX: S92.302A Fracture of unspecified metatarsal bone(s), left foot, initial encounter for closed fracture (principal); S09.90XA Unspecified injury of head, initial encounter; M79.672 Pain in left foot; E03.9 Hypothyroidism, unspecified; E87.6 Hypokalemia; M25.572 Pain in left ankle and joints of left foot; E83.42 Hypomagnesemia; M25.522 Pain in left elbow; M19.90 Unspecified osteoarthritis, unspecified site; J32.9 Chronic sinusitis, unspecified; M25.551 Pain in right hip; W19.XXXA Unspecified fall, initial encounter; Y93.9 Activity, unspecified; Y92.9 Unspecified place or not applicable
CPT/HCPCS: 36415; 70450; 71010; 72125; 80053; 81003; 82550; 82553; 83605; 83690; 83735; 83880; 84439; 84443; 84479; 84484; 85025; 85610; 85730; 86140; 93005; 99283; A9270-GY

== ENCOUNTER 2017-08-30 22:46 | Inpatient (IN) | payer MEDICARE ==
[2017-08-30] MEDS ORDERED: NS 0.9% 1000 ML* 1,000 ML IV ONE (23:10)
[2017-08-30] MEDS ORDERED: Digoxin IV* 0.5 MG/2 ML AMP (0.25 MG/ML) IV SLOW PU ONE (23:12)
[2017-08-30] MEDS ORDERED: Diltiazem IV* 5 MG/ML 5 ML VIAL (for loading dose/IV Push) (25 MG) IV SLOW PU ONE (23:13)
[2017-08-30] MEDS ORDERED: Diltiazem IV VIAL* 125 MG/25 ML VIAL ONE (23:24)
[2017-08-30 23:32] LABS: INR 0.96 (0.77-1.02)
[2017-08-30 23:41] LABS: Hematocrit 50 % (42-52); Hemoglobin 17.1 g/dl (14.0-18.0); Mean Corpuscular HGB Conc 34 g/dl (31-36); Mean Corpuscular Hemoglobin 33 pg (27-31); Mean Corpuscular Volume 98 fL (80-94); Mean Platelet Volume 8.7 um3 (7.4-10.4); Platelet Count 288 10^3/ul (150-450); Red Blood Count 5.15 10^6/ul (4.0-5.4); Red Cell Distribution Width 14 % (10.5-15)
[2017-08-30 23:43] LABS: ABS Basophils 0 10^3/ul (0-0.2); ABS Eosinophils 0.2 10^3/ul (0-0.6); ABS Lymphocytes 2.2 10^3/ul (1.0-4.8); ABS Monocytes 1.2 10^3/ul (0-0.8); ABS Neutrophils 5.4 10^3/ul (1.5-7.7)
[2017-08-30 23:45] LABS: EGFR Non-African American 93.6 (>60)
[2017-08-30] MEDS ORDERED: Enoxaparin(*) 100 MG/ML SYR SUBCUT ONE (23:49)
[2017-08-31] MEDS ORDERED: Magnesium Sulf 4 GM/100 ML IV* 4,000 MG/100 ML BAG IVPB ONE (00:18)
[2017-08-31] MEDS ORDERED: Potassium Chlor TAB* 20 MEQ TAB.ER PO ONE (00:27)
--- NOTE | 2017-08-31 00:36 | ED ---
Vero Suarez Gabriel, scribed for Elizabeth Adair MD on 08/30/17 at 2316 . Palpitations / Dysrhythmia - HPI Summary HPI Summary: This patient is a 57 year old M presenting to [facility] with a chief complaint of racing palpitations that began this morning at 0500. The patient rates the pain 0/10 in severity. Patient reports CP that resolved after 3 hours, SOB, and LE edema. Pt drinks 2-3 alcoholic drinks a night and his last one was at 1800 tonight. Last stress test was 2 years ago. Smokes 6 cigarettes a day. Pts heart rate in room is 109. Hx oral cancer and Afib two years ago, pt was cardioverted successfully at that time. - History of Current Complaint Chief Complaint: EDDysrhythmPalp Time Seen by Provider: 08/30/17 23:01 Hx Obtained From: Patient Onset/Duration: Still Present Timing: Constant Severity Initially: Moderate Severity Currently: Moderate Character: Fast Associated Signs & Symptoms: Chest Pain, Shortness of Breath - Allergy/Home Medications Allergies/Adverse Reactions: Allergies Allergy/AdvReac Type Severity Reaction Status Date / Time acetaminophen [From Tylenol] Allergy Rash Verified 08/30/17 23:34 codeine Allergy Rash Verified 08/30/17 23:35 oxycodone [From Percocet] Allergy Rash Verified 08/30/17 23:35 propoxyphene Allergy Rash Verified 08/30/17 23:36 [From Darvocet-N] PMH/Surg Hx/FS Hx/Imm Hx Endocrine/Hematology History: Reports: Hx Anticoagulant Therapy Denies: Hx Diabetes, Hx Anemia, Hx Unexplained Bleeding Cardiovascular History: Reports: Hx Atrial Fibrillation, Hx Hypertension, Other Cardiovascular Problems/Disorders - Afib, palpitation Denies: Hx Aneurysm, Hx Angina, Hx Angioplasty, Hx Auto Implanted Cardiovert Defib, Hx Cardiac Arrest, Hx Cardiomegaly, Hx Congenital Heart Disease, Hx Congestive Heart Failure, Hx Coronary Artery Disease, Hx Deep Vein Thrombosis, Hx Embolism, Hx Hypercholesterolemia, Hx Hypotension, Hx Pacemaker/ICD, Hx Peripheral Vascular Disease, Hx Rheumatic Fever, Hx Syncope, Hx Valvular Heart Disease Respiratory History: Reports: Hx Asthma, Hx Pneumonia, Hx Sleep Apnea, Other Respiratory Problems/Disorders - use cpap at home Denies: Hx Chronic Bronchitis, Hx Chronic Obstructive Pulmonary Disease (COPD ), Hx Cystic Fibrosis, Hx Lung Cancer, Hx Pleural Effusion, Hx Pulmonary Edema, Hx Pulmonary Embolism GI History: Denies: Hx Cirrhosis, Hx Crohn's Disease, Hx Obstructive Bowel, Hx Ileostomy , Hx Pyloric Stenosis, Other GI Disorders Musculoskeletal History: Reports: Hx Bursitis - RIGHT LOWER SIDE/BACK Denies: Hx Arthritis, Hx Back Problems, Hx Fibromyalgia, Hx Gout, Hx Orthopedic Injury, Hx Osteoporosis, Hx Scoliosis, Hx Tendonitis, Other Musculoskeletal History Sensory History: Reports: Hx Contacts or Glasses Denies: Hx Cataracts, Hx Eye Injury, Hx Eye Prosthesis, Hx Glaucoma, Hx Legally Blind, Hx Macular Degeneration, Hx Vision Problem, Hx Deafness, Hx Hearing Aid, Hx Hearing Problem, Other Sensory Impairments Opthamlomology History: Reports: Hx Contacts or Glasses Denies: Hx Cataracts, Hx Eye Injury, Hx Eye Prosthesis, Hx Glaucoma, Hx Legally Blind, Hx Macular Degeneration, Hx Vision Problem, Other Sensory Impairments Neurological History: Reports: Other Neuro Impairments/Disorders - Numbness to upper L thigh Denies: Hx Dementia, Hx Developmental Delay, Hx Headaches, Hx Migraine, Hx Nerve Disease, Hx Seizures, Hx Spinal Cord Injury, Hx Transient Ischemic Attacks (TIA) Psychiatric History: Reports: Hx Anxiety, Hx Depression - Cancer History Cancer Type, 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, L breast, L arm Hx Chemotherapy: No Hx Radiation Therapy: No Hx Palliative Cancer Treatment: No - Surgical History Surgery Procedure, Year, and Place: Thyroidectomy; rotator cuff repair bilat; carpal tunnel right hand x 2, Skin tumor removed x2 Hx Anesthesia Reactions: No Infectious Disease History: No Infectious Disease History: Denies: Hx Clostridium Difficile, Hx Hepatitis, Hx Human Immunodeficiency Virus (HIV), Hx of Known/Suspected MRSA, Hx Shingles, Hx Tuberculosis, Hx Known/ Suspected VRE, Hx Known/Suspected VRSA, History Other Infectious Disease, Traveled Outside the [place] in Last 30 Days - Family History Known Family History: Positive: Other - pos: Breast CA, MGM - Social History Alcohol Use: None Alcohol Amount: 3-4 beers Hx Substance Use: No Substance Use Type: Reports: None Hx Tobacco Use: Yes Smoking Status (MU): Former Smoker Type: Cigarettes Amount Used/How Often: 1ppd Length of Time of Smoking/Using Tobacco: 40yrs Have You Smoked in the Last Year: Yes Review of Systems Positive: Palpitations, Chest Pain - resolved Positive: Shortness Of Breath Positive: Edema All Other Systems Reviewed And Are Negative: Yes Physical Exam - Summary Physical Exam Summary: VITAL SIGNS: Reviewed. GENERAL: Patient is a well-developed and nourished malewho is lying comfortable in the stretcher. Patient is not in any acute respiratory distress. HEAD AND FACE: No signs of trauma. No ecchymosis, hematomas or skull depressions. No sinus tenderness. EYES: PERRLA, EOMI x 2, No injected conjunctiva, no nystagmus. EARS: Hearing grossly intact. Ear canals and tympanic membranes are within normal limits. MOUTH: Oropharynx within normal limits. NECK: Supple, trachea is midline, no adenopathy, no JVD, no carotid bruit, no c- spine tenderness, neck with full ROM. CHEST: Symmetric, no tenderness at palpation LUNGS: Clear to auscultation bilaterally. No wheezing or crackles. CVS: tachycardia and irregular, S1 and S2 present, no murmurs or gallops appreciated. ABDOMEN: Soft, non-tender. No signs of distention. No rebound no guarding, and no masses palpated. Bowel sounds are normal. EXTREMITIES: FROM in all major joints, no edema, no cyanosis or clubbing. Tremors in upper extremities while hands are out stretched NEURO: Alert and oriented x 3. No acute neurological deficits. Speech is normal and follows commands. SKIN: Dry and warm Triage Information Reviewed: Yes Vital Signs On Initial Exam: Initial Vitals Temp Pulse Resp BP Pulse Ox 98.3 F 93 18 172/112 96 08/30/17 22:49 08/30/17 22:49 08/30/17 22:49 08/30/17 22:49 08/30/17 22:49 Vital Signs Reviewed: Yes Diagnostics - Vital Signs Vital Signs Temp Pulse Resp BP Pulse Ox 08/30/17 22:49 98.3 F 93 18 172/112 96 - Laboratory Result Diagrams: 08/30/17 23:10 08/30/17 23:10 Lab Statement: Any lab studies that have been ordered have been reviewed, and results considered in the medical decision making process. - CT CXR CT Interpretation Completed By: ED Physician - mild bilateral venous congestion - EKG 22:48 Cardiac Rate: Tachycardia EKG Rhythm: Atrial Fibrillation - at [address] Segment: Non-Specific EKG Interpretation: nml axis Course/Dx - Course Assessment/Plan: This patient is a 57 year old M presenting to [facility] with a chief complaint of racing palpitations that began this morning at 0500. The patient rates the pain 0/10 in severity. Patient reports CP that resolved after 3 hours, SOB, and LE edema. Pt drinks 2-3 alcoholic drinks a night and his last one was at 1800 tonight. Last stress test was 2 years ago. Smokes 6 cigarettes a day. Pts heart rate in room is 109. Hx oral cancer and Afib two years ago, pt was cardioverted successfully at that time. An EKG reveals afib. Nml axis, non specific t waves changes. CXR reveals, mild bilateral venous congestion. Test results with no significant abnormalities except for a BNP of 325. In the ED course the patient was given IV fluids, lovenox, cardizem, and digoxin. Dx afib and alcohol use. We discussed patient care with Dr. Parson and they recommended admitted. Patient will be admitted. The patient is agreeable with this plan. - Diagnoses Provider Diagnoses: A-fib, Alcohol use - Physician Notifications Discussed Care Of Patient With: Reji Parson Time Discussed With Above Provider: 00:09 Instructed by Provider To: Admit As Inpatient Discharge - Sign-Out/Discharge Documenting (check all that apply): Discharge - Discharge Plan Condition: Fair Disposition: ADMITTED TO [facility] Referrals: Ernesto Collier MD [Primary Care Provider] - The documentation as recorded by the Vero altamirano Gabriel accurately reflects the service I personally performed and the decisions made by me, Elizabeth Adair MD.
[2017-08-31] MEDS ORDERED: Albuterol HFA INHALER* 8 gm MDI INH PRN (01:03)
[2017-08-31 01:06] LABS: ABS Nucleated RBC 0 10^3/ul; Eosinophil % 2.5 % (0-6); Lymphocyte % 23.9 % (25-47); Nucleated Red Blood Cells % 0.1
[2017-08-31] MEDS ORDERED: Metoprolol Tartrate IV* 1 MG/ML 5 ML VIAL IV PRN (01:28)
[2017-08-31] MEDS: Amitriptyline TAB* 50 MG PO SCH ×2 (02:52→21:04)
--- NOTE | 2017-08-31 04:02 | HP ---
HISTORY AND PHYSICAL: DATE OF ADMISSION: 08/31/17 ADMITTING PROVIDER: Reji Parson MD. PRIMARY CARE PROVIDER: Dr. Ernesto Collier. OUTPATIENT RADIUS GRINDER: Dr. Samaria Reyes. OUTPATIENT SALES REPRESENTATIVE ADVERTISING: Dr. Kindra Jaimes. CHIEF COMPLAINT: Chest pain, palpitations, dyspnea on exertion. HISTORY OF PRESENT ILLNESS: Jairo Soto is a 57-year-old male with a past medical history of COPD, asthma, [id number] current smoker (currently 8 cigarettes a day), episodes of atrial fibrillation in December 2014, status post cardioversion, hypertension, carpal tunnel syndrome, on disability, who has felt generally unwell over the few days prior to admission, feeling more short of breath than usual. He woke up at 5 a.m. on 08/30/17 with substernal chest pain that was sharp, as if someone was punching him. It had an exertional component. There was no radiation. He also noticed racing heart rate with palpitations. The chest pain lasted about 3 hours, it resolved when he took aspirin and the atenolol 100 mg daily he usually takes. He is more short of breath than usual, getting winded after 20 feet. He has been wheezing more. He is unable to lie down flat at night. He must sleep on his side with 1 pillow , unchanged. He occasionally wakes up in the middle of the night, short of breath and coughing. He has noticed his ankles and legs are swollen. He has had been having some cramping in his calves. Upon presentation to the [facility] Emergency Room, he was found to be in atrial fibrillation with heart rates in the low 100s and was given digoxin 0.5 mg and Cardizem 20 mg IV push along with 1 liter normal saline by Dr. Adair of emergency room, referred to hospitalist service for admission for chest pain and returned atrial fibrillation. He was also given Lovenox 100 mg. He was found to have low electrolytes with magnesium 1.4, potassium 3.7. His BNP was 325. His blood pressures were always preserved. He is afebrile. He reports never having a heart attack. His last echo was on 05/01/15, with ejection fraction of 50% to 55%, moderate pulmonary hypertension (RVSP 46 mmHg). His EKG in the emergency room showed some Q-waves in anterior lead V1 through V3 and in aVL. Initial troponin was negative at 0.01. The patient has stopped his Dulera for the last 6 months as he does not think it helps him. PAST MEDICAL HISTORY: Asthma, COPD, AFib x1, status post electrical cardioversion in December 2014; carpal tunnel syndrome, on disability; hypertension, tobacco abuse, 80-pack years, currently 8 cigarettes a day; daily alcohol use, 3 beers daily including the day of admission; bilateral avascular necrosis, status post hip replacements bilaterally. MEDICATIONS: Include: 1. Gabapentin 400 mg 4 times a day. 2. Cymbalta (duloxetine) 60 mg p.o. daily. 3. Albuterol 2 puffs inhaled q.6 hours p.r.n. 4. Elavil 150 mg p.o. at bedtime. 5. Atenolol 100 mg p.o. q.a.m. 6. Aspirin 81 mg daily. 7. Amlodipine 5 mg p.o. daily. 8. Dulera 2 puffs inhaled b.i.d. (has not used in 6 months). ALLERGIES: TYLENOL, CODEINE, OXYCODONE, DARVOCET. FAMILY HISTORY: Father had a heart attack at age 58, at age 65. Mother is aged 77, scheduled for a heart stent later this week. Denied history of myocardial infarction. SOCIAL HISTORY: The patient is on disability. Drinks 3 to 4 beers a day; 80- pack years, currently 6-8 cigarettes a day. He lives alone. His medical surrogate is his mother, Reena Soto. REVIEW OF SYSTEMS: A complete 14-point review of systems is negative, except as per HPI. PHYSICAL EXAMINATION GENERAL APPEARANCE: No acute distress, sitting up on the hospital bed. VITAL SIGNS: Temperature 98.3, heart rate 78 to 109, respiratory rate 18 to 31 , satting 97% on 2 liters, blood pressure initially 172/112, currently 163/86. HEENT: Normocephalic and atraumatic. Pupils are equally round and reactive to light. Extraocular motions are intact. NECK: Supple. No cervical lymphadenopathy. PULMONARY: Slight expiratory wheezing. No rhonchi or rales. CARDIOVASCULAR: Irregularly irregular. No murmurs, rubs or gallops. ABDOMEN: Soft, nontender, nondistended. EXTREMITIES: Warm and well perfused. 1 to 2 + pitting edema in the ankles and up the bilateral shins. NEUROLOGIC: Cranial nerves II through XII are intact. Moving all extremities. Sensation intact. Strength intact. SKIN: No lesions and no rashes. LABORATORY DATA: White count 9.0, hemoglobin 17.1, hematocrit 50, platelets 288. INR 0.96. Sodium 136, potassium 3.7, chloride 99, carbon dioxide 26, BUN 6 , creatinine 0.85, glucose 94, magnesium 1.4. AST 52, ALT 58. Troponin 0.01. BNP 325. TSH 3.48. Serum alcohol 67. IMAGING: Chest x-ray official read pending. Mild prominence of the vasculature. No effusions or infiltrates per my read. EKG as per HPI. ASSESSMENT AND PLAN: Jairo Soto is a 57-year-old male with a past medical history of asthma, COPD, one instance of atrial fibrillation, hypertension, presenting with sharp chest pain, palpitations, and found to be in AFib with RVR , status post digoxin and Cardizem IV in the emergency room with improved rates , but it seems to be creeping back up. We will give him 50 mg of metoprolol q.12 hours and diltiazem 30 mg q.6 hours. We will keep him n.p.o. in case Cardiology wants to do another cardioversion in the morning. The patient has continued to drink 3 to 4 beers daily. We would strongly encourage moderation of that. We are going to get a repeat echocardiogram given increased swelling, elevated BNP, chest pain, and new and recurrent AFib. We are going to replete his electrolytes, magnesium above 2 and potassium above 4. He is status post Lovenox in the emergency room. He does have a degree of CHF, likely tachycardia related, but we will have to get the echo to see if any other ischemic or valvular problems given his hypertension as well; that will mean his EDIL VASc scores is at least 2 and would be warranted to start therapeutic anticoagulation. I will continue the Lovenox for now, but consideration for NOAC upon discharge. For his COPD/asthma, I educated that the Dulera is supposed to be used each day and we will restart that. Continue albuterol inhalers p.r.n. We will continue his Duloxetine, aspirin 81 mg daily. He is going to be on telemetry. Consideration for another nuclear stress test depending on results of the echocardiogram, but I think this is most likely related to his recurrent atrial fibrillation. We will trend troponins, which was negative x1. He will be n.p.o. for now. He is a full code. Medical surrogate is his mother, Reena Soto. [id number]/[facility] #: [id number] MTDD
[2017-08-31] MEDS: Diltiazem TAB* 30 MG PO SCH ×3 (05:37→16:50)
[2017-08-31 06:07] LABS: EGFR Non-African American 103.3 (>60)
[2017-08-31] MEDS: Mometasone/Formoter 200/5 MDI INH SCH ×2 (07:32→19:23)
--- NOTE | 2017-08-31 07:37 | RAD ---
HISTORY: Shortness of breath COMPARISONS: February 10, 2017 VIEWS: 1: frontal portable view of the chest at 11:17 PM FINDINGS: LINES AND TUBES: None. CARDIOMEDIASTINAL SILHOUETTE: The cardiomediastinal silhouette is normal for portable technique. PLEURA: The costophrenic angles are sharp. No pleural abnormalities are noted. LUNG PARENCHYMA: There is mild prominence of the pulmonary vasculature bilaterally. ABDOMEN: The upper abdomen is clear. There is no subphrenic gas. BONES AND SOFT TISSUES: No bone or soft tissue abnormalities are noted. IMPRESSION: MILD PULMONARY VASCULAR CONGESTION.
--- NOTE | 2017-08-31 09:19 | ECHO ---
Patient: CASANDRA REED [facility] Rec#: [id number] : 1960 Date: 08/31/2017 Age: 57y Height: 177.8 cm / 70.0 in Weight: 97.98 kg / 215.9 lbs Sex: M BSA: 2.16 Room#: 434 Admit Date#: 08/31/2017 Type: Inpatient Referring: Reji Parson Reading: Ifeanyi Delaney MD Bulk Cooler Installer: Annetta Messina,IVETTECS,RDMS CC: Ernesto Collier MD Transthoracic Echocardiogram Indication: AFIB BP: 146/74 HR: 93 Rhythm: A-Fib Findings History: COPD, smoker, AFIB, HTN Technical Comments: The study quality is fair. Left Ventricle: The left ventricular chamber size is normal. Moderate concentric left ventricular hypertrophy is observed. There is a prominent septal knuckle. Global left ventricular wall motion and contractility are within normal limits. There is normal left ventricular systolic function. The estimated ejection fraction is 55-60%. The assessment of diastolic function is non-diagnostic. Left Atrium: The left atrium is mild to moderately dilated. Right Ventricle: The right ventricle wall thickness is moderately increased. The right ventricular cavity size is normal. The right ventricular global systolic function is normal. Right Atrium: The right atrium is mild to moderately dilated. Aortic Valve: The aortic valve is trileaflet. There is no evidence of aortic valve thickening. Systolic excursion of the aortic valve is normal. There is no evidence of aortic regurgitation. There is no evidence of aortic stenosis. Mitral Valve: The mitral valve leaflets appear normal. There is a trace of mitral regurgitation. There is no evidence of mitral stenosis. Tricuspid Valve: The tricuspid valve leaflets are normal. There is trace tricuspid regurgitation. There is evidence of mild pulmonary hypertension. Pulmonic Valve: The pulmonic valve appears normal. There is a trace pulmonic regurgitation. Pericardium: There is no significant pericardial effusion. A pericardial fat pad is visualized. Aorta: There is mild dilatation of the ascending aorta. There is no dilatation of the aortic arch. There is no dilation of the aortic root. Pulmonary Artery: The main pulmonary artery is not well visualized. Venous: The inferior vena cava appears normal in size. There is a greater than 50% respiratory change in the inferior vena cava dimension. Summary: There are no significant changes when compared to the previous study done on 05/01/15 Conclusions Global left ventricular wall motion and contractility are within normal limits. There is normal left ventricular systolic function. The estimated ejection fraction is 55-60%. The right ventricular global systolic function is normal. There is no evidence of aortic stenosis. There is a trace of mitral regurgitation. There is trace tricuspid regurgitation. There is no significant pericardial effusion. There is mild dilatation of the ascending aorta. Measurements Name Value Normal Range RVIDd (AP) 2D 3 cm (0.9 - 2.6) RVDdMajor (2D) 3.6 cm (2.2 - 4.4) RAd ISD 4CH 6.1 cm (3.4 - 4.9) RA (A4C)W 4.1 cm (2.9 - 4.6) IVSd (2D) 1.7 cm (0.6 - 1) LVPWd (2D) 1.4 cm (0.6 - 1) LVIDd (2D) 5.2 cm (3.6 - 5.4) LVIDs (2D) 4 cm - LV FS (2D) 24 % (25 - 45) Aortic Annulus 2.5 cm (1.4 - 2.6) Ao root diameter (2D) 3.5 cm (2.1 - 3.5) Ascending Ao 3.8 cm (2.1 - 3.4) Aortic arch 3.4 cm (1.8 - 3.4) LA dimension (AP) 2D 5.1 cm (2.3 - 3.8) LAd ISD 4CH 5.6 cm (2.9 - 5.3) LA ISD 4CH W 4.5 cm (2.5 - 4.5) Name Value Normal Range LA ESV SP 4CH (A/L) 57.78 ml - LA ESV SP 2CH (A/L) 59.36 ml - LA ESV BP (A/L) 59.92 ml - LA ESV BP (A/L) index 28 ml/m2 - LA ESV SP 4CH (MOD) 57.32 ml - LA ESV SP 2CH (MOD) 56.8 ml - Name Value Normal Range MV E-wave Vmax 1 m/sec - MV deceleration time 151 msec - LV lateral e' Vmax 0.08 m/sec - LV E:e' lateral ratio 12.5 ratio - Name Value Normal Range AV Vmax 0.9 m/sec - AV peak gradient 3.2 mmHg - LVOT Vmax 0.6 m/sec - LVOT peak gradient 1.4 mmHg - PRAFUL Vmax 0.6 m/sec - Name Value Normal Range TR Vmax 2.9 m/sec - TR peak gradient 34 mmHg - RAP 3 mmHg - RVSP 37 mmHg - IVC diameter 2 cm - Name Value Normal Range PV Vmax 0.8 m/sec - PV peak gradient 2.6 mmHg -
[2017-08-31] MEDS: Aspirin EC TAB* 81 MG TAB.EC PO SCH (09:51)
[2017-08-31] MEDS: Folic Acid TAB* 1 MG PO SCH (09:52)
[2017-08-31] MEDS: DULoxetine DR CAP* 60 MG CAP.DR PO SCH (09:52)
[2017-08-31] MEDS: Gabapentin CAP(*) 400 MG PO SCH ×4 (09:54→21:04)
[2017-08-31] MEDS: Metoprolol Tartrate TAB* 50 mg PO SCH ×2 (09:54→21:04)
[2017-08-31] MEDS: Thiamine TAB* 100 MG TAB PO SCH (09:54)
[2017-08-31] MEDS: Enoxaparin(*) 100 MG/ML SYR SUBCUT SCH (11:55)
--- NOTE | 2017-08-31 16:08 | PN ---
Hospitalist Progress Note Date of Service: 08/31/17 HOSPITALIST ADDENDUM Mr. Soto is a 57yo M with PMH of Afib x1 (s/p CV in 2014), COPD, tobacco abuse, HTN, who presented to ED with c/o chest pain, palpitations and TAVERAS, found to be in Afib with RVR. His rate is better controlled now and he was seen in consultation by Cardiology. Patient wants to wait 24h to see if he'll convert to NSR spontaneously; if not, agreeable with NORMA CV in AM.
--- NOTE | 2017-08-31 22:06 | CONS ---
CARDIOLOGY CONSULTATION REPORT: DATE OF CONSULT: 08/31/17 INDICATION FOR CONSULTATION: Atrial fibrillation. HISTORY OF PRESENT ILLNESS: The patient is a 57-year-old gentleman with a history of paroxysmal atrial fibrillation, history of COPD, asthma, who came to the emergency room because of palpitations. The patient states that for the past couple of days, he has felt unwell. He has not felt his usual self. His energy level has been less. He may have had some palpitations over the last 3 days. However, this morning, the patient had a clear tachycardic episode. It woke him up out of a sound sleep. He felt like his heart was racing. He was short of breath because of the discomfort. He decided to come to the emergency room. On arrival to the emergency room, he was in atrial fibrillation with rapid ventricular response. The patient was admitted to the hospital, was started on rate control agents and anticoagulation. PAST MEDICAL HISTORY: Significant for asthma, COPD, one episode of atrial fibrillation back in December 2014, carpal tunnel syndrome, tobacco use. MEDICATIONS: Outpatient medications: 1. Gabapentin 400 mg 4 times a day. 2. Cymbalta 60 mg a day. 3. Albuterol inhaler. 4. Elavil 120 mg q.h.s. 5. Atenolol 100 mg a day. 6. Aspirin 81 mg a day. 7. Amlodipine 5 mg a day. 8. Dulera inhaler. ALLERGIES: TYLENOL, CODEINE, OXYCODONE. FAMILY HISTORY: Father had a myocardial infarction at 58, he at age 65. Mother has history of coronary artery disease. She has coronary stents. SOCIAL HISTORY: He is currently on disability. He drinks 3 to 4 beers a day. He is a previous heavy smoker. He currently smokes 6 cigarettes a day. He lives alone. PHYSICAL EXAM: Height is 5 feet 10 inches, weight 221 pounds, temperature 97.5 , heart rate is 83 and regular, respiratory rate is 18, blood pressure 147/75, oxygen saturation 95%. Sclerae anicteric. Oropharynx is pink without erythema. Carotids are 2+ without bruits. JVD is normal. Thyroid is normal. Cardiac Exam: S1, S2 without any murmurs, rubs or gallops. Lungs: Clear to auscultation bilaterally. There is no dullness to percussion. Abdomen is soft, nontender, nondistended. Normoactive bowel sounds. Extremities show no edema. He has 2+ pulses throughout. The patient is awake, alert, and oriented. He moves all 4 extremities equally. DIAGNOSTIC STUDIES/LAB DATA: CBC is within normal limits. Chemistries within normal limits. BUN 6, creatinine 0.8. Troponins are negative x3. BNP at 327. TSH 3.4. EKG demonstrates atrial fibrillation. Echocardiogram shows normal LV size with normal LV function. No significant valvular disease. IMPRESSION AND PLAN: This is a 57-year-old gentleman with a history of paroxysmal atrial fibrillation with his last episode of atrial fibrillation was in 2014, who comes to the hospital because of feeling poorly. He was found to be in atrial fibrillation with rapid ventricular response. The patient was started on anticoagulation and rate control agents. Currently, the patient is rate controlled, he has no complaints. Because of the unclear timing as to when his symptoms started, the patient should undergo transesophageal echocardiogram prior to the cardioversion. I offered the patient a cardioversion today; however, he wanted to wait and see if it converted to normal sinus rhythm on its own. The patient will be reevaluated in the morning. [id number]/[facility] #: [id number] JESE
[2017-09-01] MEDS: Diltiazem TAB* 30 MG PO SCH ×3 (00:14→15:01)
[2017-09-01] MEDS: Enoxaparin(*) 100 MG/ML SYR SUBCUT SCH ×2 (00:14→14:33)
[2017-09-01] MEDS ORDERED: Thiamine IV* 100 MG/ML 2 ML VIAL IM ONE (02:00)
[2017-09-01] MEDS: LORazepam TAB(*) 1 MG PO SCH (02:20)
[2017-09-01 04:58] LABS: Hematocrit 49 % (42-52); Hemoglobin 16.2 g/dl (14.0-18.0); Mean Corpuscular HGB Conc 33 g/dl (31-36); Mean Corpuscular Hemoglobin 33 pg (27-31); Mean Corpuscular Volume 98 fL (80-94); Mean Platelet Volume 8.8 um3 (7.4-10.4); Platelet Count 244 10^3/ul (150-450); Red Blood Count 4.95 10^6/ul (4.0-5.4); Red Cell Distribution Width 14 % (10.5-15); White Blood Count 8.7 10^3/ul (3.5-10.8)
[2017-09-01 05:02] LABS: ABS Basophils 0.1 10^3/ul (0-0.2); ABS Eosinophils 0.2 10^3/ul (0-0.6); ABS Lymphocytes 1.4 10^3/ul (1.0-4.8)
[2017-09-01 05:19] LABS: EGFR Non-African American 88.7 (>60)
[2017-09-01 05:44] LABS: ABS Nucleated RBC 0 10^3/ul; Eosinophil % 2.5 % (0-6); Nucleated Red Blood Cells % 0
[2017-09-01] MEDS: Mometasone/Formoter 200/5 MDI INH SCH ×2 (08:01→20:18)
[2017-09-01] MEDS ORDERED: Thiamine TAB* 100 MG TAB PO SCH (09:00)
[2017-09-01] MEDS ORDERED: Folic Acid TAB* 1 MG PO SCH (09:00)
[2017-09-01] MEDS: Multivitamins/Minerals TAB PO SCH (09:36)
[2017-09-01] MEDS: Gabapentin CAP(*) 400 MG PO SCH ×4 (09:36→21:42)
[2017-09-01] MEDS: Metoprolol Tartrate TAB* 50 mg PO SCH ×2 (09:36→21:43)
[2017-09-01] MEDS: Folic Acid TAB* 1 MG PO SCH (09:37)
[2017-09-01] MEDS: DULoxetine DR CAP* 60 MG CAP.DR PO SCH (09:37)
[2017-09-01] MEDS: Aspirin EC TAB* 81 MG TAB.EC PO SCH (09:37)
[2017-09-01] MEDS: Thiamine TAB* 100 MG TAB PO SCH (09:37)
[2017-09-01] MEDS ORDERED: Albuterol 2.5 MG/3 ML NEB.SOL* (0.083%) ONE (12:26)
[2017-09-01] MEDS ORDERED: fentaNYL* 50 MCG/ML 2 ML VIAL (100 MCG VIAL) ONE (12:35)
[2017-09-01] MEDS ORDERED: Naloxone* 0.4 MG/ML 1 ML VIAL ONE (12:35)
[2017-09-01] MEDS ORDERED: Midazolam* 1 MG/ML 10 ML VIAL (10 MG) ONE (12:35)
[2017-09-01] MEDS ORDERED: Lidocaine 2% VISCOUS* 15 ML UDC ONE (12:35)
[2017-09-01] MEDS ORDERED: Flumazenil* 0.1 MG/ML 5 ML MDV ONE (12:35)
[2017-09-01] MEDS ORDERED: Albuterol 2.5 MG/3 ML NEB.SOL* (0.083%) INH ONE (12:36)
--- NOTE | 2017-09-01 14:21 | CARD ---
CARDIOVERSION: DATE OF STUDY: 09/01/17 PROCEDURE: Cardioversion. INDICATION: Atrial fibrillation. The patient is a 57-year-old gentleman with a history of paroxysmal atrial fibrillation, who came to the hospital feeling poorly for a couple of days, was found to be in atrial fibrillation with a rapid ventricular response. The patient has just undergone transesophageal echocardiogram which showed normal LV function, no sig nificant valvular abnormalities. His left atrial appendage did not show any evidence of thrombus. C ardioversion was recommended. PROCEDURE IN DETAIL: The patient was already sedated from transesophageal echocardiogram. The patie nt was cardioverted with 150 joules of symphonized biphasic energy. The patient converted to normal sinus rhythm. The patient tolerated the procedure well with no complications. [id number]/[facility] #: [id number]
[2017-09-01] MEDS: Rivaroxaban TAB(*) 20 MG TAB PO SCH (15:01)
--- NOTE | 2017-09-01 15:12 | TEE ---
Patient: CASANDRA REED [facility] Rec#: [id number] : 1960 Date: 09/01/2017 Age: 57y Height: 178 cm / 70.1 in Weight: 101 kg / 222.6 lbs Sex: M BSA: 2.19 Room#: 434 Admit Date#: 08/31/2017 Type: Inpatient Referring: Ifeanyi Delaney MD Performing: Ifeanyi Delaney MD Reading: Ifeanyi Delaney MD Production Painter: Annetta Messina RD,RDMS Nurse: Tere Caldera Transesophageal Echocardiogram Indication: AFIB BP: 137/65 HR: 83 Rhythm: A-Fib Findings History: COPD, HTN, AFIB, smoker Technical Comments: The study quality is good. Left Ventricle: The left ventricular chamber size is normal. Mild concentric left ventricular hypertrophy is observed. Global left ventricular wall motion and contractility are within normal limits. There is normal left ventricular systolic function. The estimated ejection fraction is 55-60%. The assessment of diastolic function is non-diagnostic. Left Atrium: The left atrium is mild to moderately dilated. There is no thrombus visualized in the left atrial appendage. Right Ventricle: The right ventricular chamber size and systolic function are within normal limits. The right ventricle wall thickness is mildly increased. Right Atrium: The right atrium is mildly dilated. The interatrial septum appears lipomatous. The bubble study is negative. A patent foramen ovale is not demonstrated with color Doppler and agitated contrast. Aortic Valve: The aortic valve is trileaflet. There is no evidence of aortic valve thickening. There is no evidence of aortic regurgitation. There is no evidence of aortic stenosis. Mitral Valve: The mitral valve leaflets appear normal. There is a trace of mitral regurgitation. There is no evidence of mitral stenosis. Tricuspid Valve: The tricuspid valve leaflets are normal. There is trace tricuspid regurgitation. Pulmonic Valve: The pulmonic valve appears normal. There is no evidence of pulmonic regurgitation. Pericardium: There is no significant pericardial effusion. Aorta: There is mild dilatation of the ascending aorta. There is plaque visualized in the transverse aorta. There is plaque visualized in the descending aorta. Pulmonary Artery: The main pulmonary artery appears normal. Venous: The inferior vena cava appears normal. The flow pattern of the pulmonary veins appear normal. The superior vena cava appears normal. [facility]MA Procedures: All standard views were attempted within the limitations of patient tolerance and safety. History and physical as well as labs were reviewed. The patient was in a fasting state. Risks and benefits of the procedure, including alternatives, were discussed and written informed consent was obtained. The patient and/or their health care roofing sales representative expressed understanding of the procedure, risks and benefits. Baseline and continuous monitoring of blood pressure, heart rate, pulse oximetry and heart rhythm was performed throughout the procedure. The appropriate time-out procedure was performed as per [facility] protocol. The patient was placed in the left lateral decubitus position. The patient's posterior pharynx was anesthetized with 20ml of 2% viscous lidocaine. The patient received IV Midazolam with a total dose of 6 mg The patient received IV Fentanyl with a total dose of 50 mcg The multiplane transesophageal echocardiogram probe was inserted through the posterior oropharynx and advanced into the esophagus without difficulty. Multiple 2D images were obtained of the heart and its related structures. Color flow Doppler was used for evaluation. Spectral Doppler was also used. The atrial septum was interrogated with color flow Doppler. At the conclusion of the procedure the probe was removed with continuous suction without complications. The patient tolerated the procedure with no apparent complications. Conclusions Global left ventricular wall motion and contractility are within normal limits. There is normal left ventricular systolic function. The estimated ejection fraction is 55-60%. Mild concentric left ventricular hypertrophy is observed. The bubble study is negative. A patent foramen ovale is not demonstrated with color Doppler and agitated contrast. There is no thrombus visualized in the left atrial appendage. There is no evidence of aortic stenosis. There is a trace of mitral regurgitation. There is trace tricuspid regurgitation. Measurements Name Value Normal Range Ao root diameter (2D) 2.59 cm (2.1 - 3.5) Ascending Ao 4.03 cm (2.1 - 3.4) Name Value Normal Range MV E-wave Vmax 0.63 m/sec - MV deceleration time 78.44 msec - MV A-wave Vmax 0.01 m/sec - MV E:A ratio 56.84 ratio -
--- NOTE | 2017-09-01 16:19 | PN ---
Subjective Date of Service: 09/01/17 Interval History: HOSPITALIST PROGRESS NOTE Patient seen and examined at bedside. He offers no complaints today, but per RN report he was confused and hallucinating last night. Patient states he was having vivid dreams last night and this is not uncommon for him. Family History: Unchanged from Admission Social History: Unchanged from Admission Past Medical History: Unchanged from Admission Objective Active Medications: Albuterol (Ventolin Hfa Inhaler*) 2 puff INH BID PRN PRN Reason: SHORTNESS OF BREATH Amitriptyline HCl (Elavil Tab*) 150 mg PO BEDTIME [facility] Last Admin: 08/31/17 21:04 Dose: 150 mg Aspirin (Aspirin Ec Tab*) 81 mg PO DAILY [facility] Last Admin: 09/01/17 09:37 Dose: 81 mg Diltiazem HCl (Cardizem Tab*) 30 mg PO Q6HR [facility] Last Admin: 09/01/17 15:01 Dose: 30 mg Duloxetine HCl (Cymbalta Cap*) 60 mg PO DAILY [facility] Last Admin: 09/01/17 09:37 Dose: 60 mg Folic Acid (Folvite Tab*) 1 mg PO DAILY [facility] Last Admin: 09/01/17 09:37 Dose: 1 mg Gabapentin (Neurontin Cap(*)) 400 mg PO QID [facility] Last Admin: 09/01/17 15:01 Dose: 400 mg Lorazepam (Ativan Tab(*)) 0 - 6 mg PO .PER [facility] PROTOCOL [facility] PRN Reason: Protocol Last Admin: 09/01/17 02:20 Dose: 2 mg Metoprolol Tartrate (Lopressor Tab*) 50 mg PO Q12HR [facility] Last Admin: 09/01/17 09:36 Dose: 50 mg Metoprolol Tartrate (Lopressor Iv*) 5 mg IV Q2H PRN PRN Reason: TACHYCARDIA Mometasone Furoate/Formoterol Fumar (Dulera 200/5 Mdi*) 2 puff INH BID [facility] Last Admin: 09/01/17 08:01 Dose: 2 puff Multivitamins/Minerals (Theragran/Minerals Tab*) 1 tab PO DAILY [facility] Last Admin: 09/01/17 09:36 Dose: 1 tab Rivaroxaban (Xarelto(*)) 20 mg PO DAILY [facility] Last Admin: 09/01/17 15:01 Dose: 20 mg Thiamine HCl (Vitamin B-1 Tab*) 100 mg PO DAILY [facility] Last Admin: 09/01/17 09:37 Dose: 100 mg Vital Signs - 8 hr 09/01/17 09/01/17 09/01/17 12:37 14:33 14:36 Temperature Pulse Rate 95 83 Respiratory 19 18 18 Rate Blood Pressure 139/91 (mmHg) O2 Sat by Pulse 97 93 Oximetry 09/01/17 09/01/17 09/01/17 15:01 15:04 15:26 Temperature 97.6 F Pulse Rate 89 79 Respiratory 16 18 Rate Blood Pressure 137/81 153/97 (mmHg) O2 Sat by Pulse 97 99 Oximetry Oxygen Devices in Use Now: None Appearance: Middle age obese male sitting up in bed in [place]. Eyes: No Scleral Icterus Ears/Nose/Mouth/Throat: Mucous Membranes Moist Neck: Trachea Midline Respiratory: Symmetrical Chest Expansion and Respiratory Effort, Clear to Auscultation Cardiovascular: - - Normal S1 and S2, irregularly irregular Neurological: Alert and Oriented x 3, NL Muscle Strength and Tone Result Diagrams: 09/01/17 04:37 09/01/17 04:37 Assess/Plan/Problems-Billing Assessment: Mr. Soto is a 57yo M with PMH of Afib s/p CVx1, COPD, HTN, tobacco abuse, alcohol abuse, who presented to ED with c/o palpitations and dyspnea, found to be in Afib RVR. - Patient Problems (1) Atrial fibrillation Comment: - Patient initially declined cardioversion as he had hopes he would convert with medication but this unfortunately did not happen - plan for NORMA CV and will d/c home on beta dashawn and Xarelto. (2) Alcohol withdrawal Comment: - Mild - appears to be back at his baseline. States he was having vivid dreams last night, but does not seem to be confused today. - Continue [facility] protocol. - We talked about importance of alcohol abstinence, especially considering his Afib. He states "the doctors already took everything away from me: I used to drink a pot of coffee and now I drink only a cup; I used to smoke a pack of cigarettes and now just 5 a day; used to drink 30 beers and now just 3 a day. I' m not cutting down on my pleasures anymore". - He understands the risks and benefits associated with his decisions, but he states he has to "enjoy life a little". - Not interested in rehab. (3) DVT prophylaxis Comment: - Xakimto. (4) Full code status
[2017-09-01] MEDS: Amitriptyline TAB* 100 MG PO SCH (21:42)
[2017-09-01] MEDS: Amitriptyline TAB* 50 MG PO SCH (21:44)
[2017-09-02] MEDS: LORazepam TAB(*) 1 MG PO SCH (01:46)
[2017-09-02] MEDS: CMCS Melatonin (NF) 3 MG TAB PO SCH ×2 (02:16→21:49)
--- NOTE | 2017-09-02 02:32 | PN ---
Progress Note - Progress Note Date of Service: 09/02/17 Note: Patient has been in NSR since cardioversion. Again for second night appears anxious and restless. Gave melatonin and ativan with minimal relief. Will d/c telemetry as this seems to be part of issue. ?.
[2017-09-02] MEDS ORDERED: Haloperidol INJ IV/IM* 5 MG/ML AMP IV SLOW PU PRN (03:19)
[2017-09-02] MEDS: Mometasone/Formoter 200/5 MDI INH SCH ×2 (07:53→21:05)
[2017-09-02] MEDS: Folic Acid TAB* 1 MG PO SCH (09:40)
[2017-09-02] MEDS: Rivaroxaban TAB(*) 20 MG TAB PO SCH (09:40)
[2017-09-02] MEDS: Metoprolol Tartrate TAB* 50 mg PO SCH ×2 (09:41→21:49)
[2017-09-02] MEDS: Aspirin EC TAB* 81 MG TAB.EC PO SCH (09:41)
[2017-09-02] MEDS: Gabapentin CAP(*) 400 MG PO SCH ×4 (09:41→21:49)
[2017-09-02] MEDS: Amitriptyline TAB* 25 MG PO SCH (09:41)
[2017-09-02] MEDS: Thiamine TAB* 100 MG TAB PO SCH (09:41)
[2017-09-02] MEDS: DULoxetine DR CAP* 60 MG CAP.DR PO SCH (09:41)
[2017-09-02] MEDS: Multivitamins/Minerals TAB PO SCH (09:41)
--- NOTE | 2017-09-02 15:36 | PN ---
Subjective Date of Service: 09/02/17 Interval History: HOSPITALIST PROGRESS NOTE Patient seen and examined at bedside. Care reviewed and d/w Dominic Varma RN. He's still confused, had similar episode of "nightmares" last night and received Ativan. Still sleepy this AM. Family History: Unchanged from Admission Social History: Unchanged from Admission Past Medical History: Unchanged from Admission Objective Active Medications: Albuterol (Ventolin Hfa Inhaler*) 2 puff INH BID PRN PRN Reason: SHORTNESS OF BREATH Amitriptyline HCl (Elavil Tab*) 50 mg PO DAILY [facility] Last Admin: 09/02/17 09:41 Dose: 50 mg Amitriptyline HCl (Elavil Tab*) 100 mg PO BEDTIME [facility] Last Admin: 09/01/17 21:42 Dose: 100 mg Aspirin (Aspirin Ec Tab*) 81 mg PO DAILY [facility] Last Admin: 09/02/17 09:41 Dose: 81 mg Duloxetine HCl (Cymbalta Cap*) 60 mg PO DAILY [facility] Last Admin: 09/02/17 09:41 Dose: 60 mg Folic Acid (Folvite Tab*) 1 mg PO DAILY [facility] Last Admin: 09/02/17 09:40 Dose: 1 mg Gabapentin (Neurontin Cap(*)) 400 mg PO QID [facility] Last Admin: 09/02/17 13:35 Dose: 400 mg Haloperidol Lactate (Haldol Inj Iv/Im*) 5 mg IV SLOW PU Q6H PRN PRN Reason: AGITATION Lorazepam (Ativan Tab(*)) 0 - [address] [facility] PROTOCOL [facility] PRN Reason: Protocol Last Admin: 09/02/17 01:46 Dose: 2 mg Melatonin (Melatonin (Nf)) 3 mg PO BEDTIME [facility] Last Admin: 09/02/17 02:16 Dose: 3 mg Metoprolol Tartrate (Lopressor Tab*) 50 mg PO Q12HR [facility] Last Admin: 09/02/17 09:41 Dose: 50 mg Metoprolol Tartrate (Lopressor Iv*) 5 mg IV Q2H PRN PRN Reason: TACHYCARDIA Mometasone Furoate/Formoterol Fumar (Dulera 200/5 Mdi*) 2 puff INH BID [facility] Last Admin: 09/02/17 07:53 Dose: 2 puff Multivitamins/Minerals (Theragran/Minerals Tab*) 1 tab PO DAILY [facility] Last Admin: 09/02/17 09:41 Dose: 1 tab Rivaroxaban (Xarelto(*)) 20 mg PO DAILY [facility] Last Admin: 09/02/17 09:40 Dose: 20 mg Thiamine HCl (Vitamin B-1 Tab*) 100 mg PO DAILY [facility] Last Admin: 09/02/17 09:41 Dose: 100 mg Vital Signs - 8 hr 09/02/17 09/02/17 09/02/17 07:43 07:53 09:41 Temperature 97.3 F Pulse Rate 70 80 Respiratory 16 16 16 Rate Blood Pressure 138/79 (mmHg) O2 Sat by Pulse 97 93 Oximetry 09/02/17 09/02/17 09/02/17 11:56 13:09 13:35 Temperature 97.6 F Pulse Rate 71 Respiratory 15 16 16 Rate Blood Pressure 129/82 (mmHg) O2 Sat by Pulse 100 Oximetry Oxygen Devices in Use Now: Nasal Cannula Appearance: Middle aged male lying in bed in [facility]. Eyes: No Scleral Icterus Ears/Nose/Mouth/Throat: Mucous Membranes Moist Neck: Trachea Midline Respiratory: Symmetrical Chest Expansion and Respiratory Effort, Clear to Auscultation Cardiovascular: RRR - Normal S1 and S2 Abdominal: NL Sounds; No Tenderness; No Distention Neurological: - - Lethargic, arousable to voice, oriented to self and place Result Diagrams: 09/01/17 04:37 09/01/17 04:37 Assess/Plan/Problems-Billing Assessment: Mr. Soto is a 57yo M with PMH of Afib s/p CVx1, COPD, HTN, tobacco abuse, alcohol abuse, who presented to ED with c/o palpitations and dyspnea, found to be in Afib RVR. - Patient Problems (1) Atrial fibrillation Comment: - S/p NORMA CV - plan to d/c home on beta dashawn and Xarelto when stable. (2) Alcohol withdrawal Comment: - More confused today. - Continue [facility] protocol. - Yesterday we talked about importance of alcohol abstinence, especially considering his Afib. He states "the doctors already took everything away from me: I used to drink a pot of coffee and now I drink only a cup; I used to smoke a pack of cigarettes and now just 5 a day; used to drink 30 beers and now just 3 a day. I'm not cutting down on my pleasures anymore". - He understands the risks and benefits associated with his decisions, but he states he has to "enjoy life a little". - Not interested in rehab. (3) DVT prophylaxis Comment: - Bruno. (4) Full code status Status and Disposition: Mother called and updated about his condition. She states he's been drinking more recently, usually a 6 pack/day.
[2017-09-02] MEDS ORDERED: Albuterol 2.5 MG/3 ML NEB.SOL* (0.083%) INH PRN (17:54)
[2017-09-02] MEDS: Amitriptyline TAB* 100 MG PO SCH (21:49)
[2017-09-03] MEDS ORDERED: LORazepam TAB(*) 1 MG PO STA (04:38)
[2017-09-03] MEDS: Mometasone/Formoter 200/5 MDI INH SCH ×2 (07:58→21:29)
[2017-09-03] MEDS ORDERED: Thiamine IV* 100 MG/ML 2 ML VIAL ONE (09:23)
[2017-09-03] MEDS: Gabapentin CAP(*) 400 MG PO SCH ×4 (09:26→21:26)
[2017-09-03] MEDS: Amitriptyline TAB* 25 MG PO SCH (09:26)
[2017-09-03] MEDS: Aspirin EC TAB* 81 MG TAB.EC PO SCH (09:26)
[2017-09-03] MEDS: DULoxetine DR CAP* 60 MG CAP.DR PO SCH (09:27)
[2017-09-03] MEDS: LORazepam TAB(*) 1 MG PO SCH ×2 (09:27→21:27)
[2017-09-03] MEDS: Multivitamins/Minerals TAB PO SCH (09:27)
[2017-09-03] MEDS: Folic Acid TAB* 1 MG PO SCH (09:27)
[2017-09-03] MEDS: Rivaroxaban TAB(*) 20 MG TAB PO SCH (09:27)
[2017-09-03] MEDS: Metoprolol Tartrate TAB* 50 mg PO SCH ×2 (09:27→21:26)
[2017-09-03] MEDS: Thiamine IV* 500 MG in NS 0.9% 250 ML* 250 ML IV SCH ×3 (10:35→22:30)
--- NOTE | 2017-09-03 13:54 | PN ---
Subjective Date of Service: 09/03/17 Interval History: HOSPITALIST PROGRESS NOTE Patient seen and examined at bedside. He's still confused today. Had hallucinations overnight and still has them now. "The mice are by the kitchen". Knows he came to the hospital with "problems with his heart". Family History: Unchanged from Admission Social History: Unchanged from Admission Past Medical History: Unchanged from Admission Objective Active Medications: Albuterol (Ventolin Hfa Inhaler*) 2 puff INH BID PRN PRN Reason: SHORTNESS OF BREATH Last Admin: 09/02/17 18:14 Dose: 2 puff Albuterol (Ventolin 2.5 Mg/3 Ml Neb.Kourtney*) 2.5 mg INH Q4H PRN PRN Reason: SOB/WHEEZING Amitriptyline HCl (Elavil Tab*) 50 mg PO DAILY [facility] Last Admin: 09/03/17 09:26 Dose: 50 mg Amitriptyline HCl (Elavil Tab*) 100 mg PO BEDTIME [facility] Last Admin: 09/02/17 21:49 Dose: 100 mg Aspirin (Aspirin Ec Tab*) 81 mg PO DAILY [facility] Last Admin: 09/03/17 09:26 Dose: 81 mg Device (Nicotine Mouth Piece*) 1 each INH .USE WITH NICOTROL PRN PRN Reason: CRAVING Duloxetine HCl (Cymbalta Cap*) 60 mg PO DAILY [facility] Last Admin: 09/03/17 09:27 Dose: 60 mg Folic Acid (Folvite Tab*) 1 mg PO DAILY [facility] Last Admin: 09/03/17 09:27 Dose: 1 mg Gabapentin (Neurontin Cap(*)) 400 mg PO QID [facility] Last Admin: 09/03/17 13:43 Dose: Not Given Haloperidol Lactate (Haldol Inj Iv/Im*) 5 mg IV SLOW PU Q6H PRN PRN Reason: AGITATION Thiamine HCl 500 mg/ Sodium (Chloride) 255 mls @ 255 mls/hr IV TID [facility] Stop: 09/05/17 08:59 Last Admin: 09/03/17 10:35 Dose: 255 mls/hr Lorazepam (Ativan Tab(*)) 0 - 6 mg PO .PER [facility] PROTOCOL [facility] PRN Reason: Protocol Last Admin: 09/03/17 09:27 Dose: 2 mg Melatonin (Melatonin (Nf)) 3 mg PO BEDTIME [facility] Last Admin: 09/02/17 21:49 Dose: 3 mg Metoprolol Tartrate (Lopressor Tab*) 50 mg PO Q12HR [facility] Last Admin: 09/03/17 09:27 Dose: 50 mg Metoprolol Tartrate (Lopressor Iv*) 5 mg IV Q2H PRN PRN Reason: TACHYCARDIA Mometasone Furoate/Formoterol Fumar (Dulera 200/5 Mdi*) 2 puff INH BID [facility] Last Admin: 09/03/17 07:58 Dose: 2 puff Multivitamins/Minerals (Theragran/Minerals Tab*) 1 tab PO DAILY [facility] Last Admin: 09/03/17 09:27 Dose: 1 tab Nicotine (Nicotine Inhaler*) 10 mg INH Q2H PRN PRN Reason: CRAVING Rivaroxaban (Xarelto(*)) 20 mg PO DAILY [facility] Last Admin: 09/03/17 09:27 Dose: 20 mg Vital Signs - 8 hr 09/03/17 09/03/17 09/03/17 08:08 09:26 09:27 Temperature 99.3 F Pulse Rate 77 Respiratory 20 18 18 Rate Blood Pressure 169/106 (mmHg) O2 Sat by Pulse 96 Oximetry Oxygen Devices in Use Now: Nasal Cannula Appearance: Middle aged obese male sitting up in a chair in [facility]. Eyes: No Scleral Icterus, - - Mild nystagmus Ears/Nose/Mouth/Throat: Mucous Membranes Moist Neck: Trachea Midline Respiratory: Symmetrical Chest Expansion and Respiratory Effort, Clear to Auscultation Cardiovascular: RRR - Normal S1 and S2 Neurological: - - AAOx2 (self and place) Result Diagrams: 09/01/17 04:37 09/01/17 04:37 Assess/Plan/Problems-Billing Assessment: Mr. Soto is a 57yo M with PMH of Afib s/p CVx1, COPD, HTN, tobacco abuse, alcohol abuse, who presented to ED with c/o palpitations and dyspnea, found to be in Afib RVR. - Patient Problems (1) Atrial fibrillation Comment: - S/p NORMA CV - plan to d/c home on beta dashawn and Xarelto when stable. (2) Alcohol withdrawal Comment: - More confused today. - Continue [facility] protocol. - We talked about importance of alcohol abstinence, especially considering his Afib. He states "the doctors already took everything away from me: I used to drink a pot of coffee and now I drink only a cup; I used to smoke a pack of cigarettes and now just 5 a day; used to drink 30 beers and now just 3 a day. I' m not cutting down on my pleasures anymore". - He understands the risks and benefits associated with his decisions, but he states he has to "enjoy life a little". - Not interested in rehab. (3) Wernicke-Korsakoff syndrome (alcoholic) Comment: - Suspect patient may have a component of WK syndrome, especially with the new finding of nystagmus associated with his confusion. - Start high dose Thiamine. (4) DVT prophylaxis Comment: - Xarelto. (5) Full code status Status and Disposition: Inpatient for management of alcohol withdrawal.
[2017-09-03] MEDS: Amitriptyline TAB* 100 MG PO SCH (21:25)
[2017-09-03] MEDS: CMCS Melatonin (NF) 3 MG TAB PO SCH (21:26)
[2017-09-04] MEDS: LORazepam TAB(*) 1 MG PO SCH ×5 (01:08→22:55)
[2017-09-04] MEDS: Mometasone/Formoter 200/5 MDI INH SCH ×2 (07:41→21:16)
[2017-09-04] MEDS: Gabapentin CAP(*) 400 MG PO SCH ×4 (09:19→22:11)
[2017-09-04] MEDS: Metoprolol Tartrate TAB* 50 mg PO SCH ×2 (09:19→22:11)
[2017-09-04] MEDS: DULoxetine DR CAP* 60 MG CAP.DR PO SCH (09:19)
[2017-09-04] MEDS: Rivaroxaban TAB(*) 20 MG TAB PO SCH (09:19)
[2017-09-04] MEDS: Aspirin EC TAB* 81 MG TAB.EC PO SCH (09:19)
[2017-09-04] MEDS: Folic Acid TAB* 1 MG PO SCH (09:19)
[2017-09-04] MEDS: Amitriptyline TAB* 25 MG PO SCH (09:19)
[2017-09-04] MEDS: Multivitamins/Minerals TAB PO SCH (09:20)
[2017-09-04] MEDS: Thiamine IV* 500 MG in NS 0.9% 250 ML* 250 ML IV SCH ×3 (11:12→22:19)
--- NOTE | 2017-09-04 14:15 | PN ---
Subjective Date of Service: 09/04/17 Interval History: HOSPITALIST PROGRESS NOTE Patient seen and examined at bedside. He's still confused today, hallucinating. Now ataxic. Family History: Unchanged from Admission Social History: Unchanged from Admission Past Medical History: Unchanged from Admission Objective Active Medications: Albuterol (Ventolin Hfa Inhaler*) 2 puff INH BID PRN PRN Reason: SHORTNESS OF BREATH Last Admin: 09/02/17 18:14 Dose: 2 puff Albuterol (Ventolin 2.5 Mg/3 Ml Neb.Kourtney*) 2.5 mg INH Q4H PRN PRN Reason: SOB/WHEEZING Amitriptyline HCl (Elavil Tab*) 50 mg PO DAILY [facility] Last Admin: 09/04/17 09:19 Dose: 50 mg Amitriptyline HCl (Elavil Tab*) 100 mg PO BEDTIME [facility] Last Admin: 09/03/17 21:25 Dose: 100 mg Aspirin (Aspirin Ec Tab*) 81 mg PO DAILY [facility] Last Admin: 09/04/17 09:19 Dose: 81 mg Device (Nicotine Mouth Piece*) 1 each INH .USE WITH NICOTROL PRN PRN Reason: CRAVING Duloxetine HCl (Cymbalta Cap*) 60 mg PO DAILY [facility] Last Admin: 09/04/17 09:19 Dose: 60 mg Folic Acid (Folvite Tab*) 1 mg PO DAILY [facility] Last Admin: 09/04/17 09:19 Dose: 1 mg Gabapentin (Neurontin Cap(*)) 400 mg PO QID [facility] Last Admin: 09/04/17 12:15 Dose: 400 mg Haloperidol Lactate (Haldol Inj Iv/Im*) 5 mg IV SLOW PU Q6H PRN PRN Reason: AGITATION Thiamine HCl 500 mg/ Sodium (Chloride) 255 mls @ 255 mls/hr IV TID [facility] Stop: 09/05/17 08:59 Last Admin: 09/04/17 13:41 Dose: 255 mls/hr Lorazepam (Ativan Tab(*)) 0 - 6 mg PO .PER [facility] PROTOCOL [facility] PRN Reason: Protocol Last Admin: 09/04/17 13:21 Dose: 4 mg Melatonin (Melatonin (Nf)) 3 mg PO BEDTIME [facility] Last Admin: 09/03/17 21:26 Dose: 3 mg Metoprolol Tartrate (Lopressor Tab*) 50 mg PO Q12HR [facility] Last Admin: 09/04/17 09:19 Dose: 50 mg Metoprolol Tartrate (Lopressor Iv*) 5 mg IV Q2H PRN PRN Reason: TACHYCARDIA Mometasone Furoate/Formoterol Fumar (Dulera 200/5 Mdi*) 2 puff INH BID [facility] Last Admin: 09/04/17 07:41 Dose: 2 puff Multivitamins/Minerals (Theragran/Minerals Tab*) 1 tab PO DAILY [facility] Last Admin: 09/04/17 09:20 Dose: 1 tab Nicotine (Nicotine Inhaler*) 10 mg INH Q2H PRN PRN Reason: CRAVING Rivaroxaban (Xarelto(*)) 20 mg PO DAILY [facility] Last Admin: 09/04/17 09:19 Dose: 20 mg Vital Signs - 8 hr 09/04/17 09/04/17 09/04/17 08:00 09:11 09:19 Temperature 97.3 F Pulse Rate 79 Respiratory 20 20 18 Rate Blood Pressure 155/94 (mmHg) O2 Sat by Pulse 93 Oximetry 09/04/17 09/04/17 13:15 13:21 Temperature 98.0 F Pulse Rate 92 Respiratory 20 18 Rate Blood Pressure 162/97 (mmHg) O2 Sat by Pulse 94 Oximetry Oxygen Devices in Use Now: None Appearance: Middle aged obese male sitting up in a recliner in [facility]. Eyes: No Scleral Icterus Ears/Nose/Mouth/Throat: Mucous Membranes Moist Neck: Trachea Midline Respiratory: Symmetrical Chest Expansion and Respiratory Effort, Clear to Auscultation Cardiovascular: RRR - Normal S1 and S2 Neurological: - - AAOx2 (self and place), FRANZ, nystagmus Result Diagrams: 09/01/17 04:37 09/01/17 04:37 Assess/Plan/Problems-Billing Assessment: Mr. Soto is a 57yo M with PMH of Afib s/p CVx1, COPD, HTN, tobacco abuse, alcohol abuse, who presented to ED with c/o palpitations and dyspnea, found to be in Afib RVR. - Patient Problems (1) Atrial fibrillation Comment: - S/p NORMA CV - plan to d/c home on beta dashawn and Xarelto when stable. (2) Alcohol withdrawal Comment: - Confusion is unchanged. - Continue [facility] protocol. (3) Wernicke-Korsakoff syndrome (alcoholic) Comment: - Suspect patient may have a component of WK syndrome - confusion, nystagmus, and now ataxia. - Continue high dose Thiamine. (4) DVT prophylaxis Comment: - Bruno. (5) Full code status Status and Disposition: Inpatient for management of alcohol withdrawal.
[2017-09-04] MEDS: CMCS Melatonin (NF) 3 MG TAB PO SCH (22:11)
[2017-09-04] MEDS: Amitriptyline TAB* 100 MG PO SCH (22:11)
[2017-09-05 05:27] LABS: ABS Basophils 0.1 10^3/ul (0-0.2); ABS Eosinophils 0.2 10^3/ul (0-0.6); ABS Lymphocytes 0.8 10^3/ul (1.0-4.8); ABS Monocytes 1.1 10^3/ul (0-0.8); ABS Neutrophils 8.2 10^3/ul (1.5-7.7); ABS Nucleated RBC 0 10^3/ul; Eosinophil % 1.5 % (0-6); Hematocrit 48 % (42-52); Hemoglobin 15.8 g/dl (14.0-18.0); Lymphocyte % 7.5 % (25-47); Mean Corpuscular HGB Conc 33 g/dl (31-36); Mean Corpuscular Hemoglobin 33 pg (27-31); Mean Corpuscular Volume 99 fL (80-94); Nucleated Red Blood Cells % 0; Platelet Count 204 10^3/ul (150-450); Red Blood Count 4.82 10^6/ul (4.0-5.4); Red Cell Distribution Width 14 % (10.5-15); White Blood Count 10.3 10^3/ul (3.5-10.8)
[2017-09-05 05:43] LABS: EGFR Non-African American 83.3 (>60)
[2017-09-05] MEDS: Mometasone/Formoter 200/5 MDI INH SCH ×2 (08:19→21:00)
[2017-09-05] MEDS: Gabapentin CAP(*) 400 MG PO SCH ×4 (10:37→21:19)
[2017-09-05] MEDS: DULoxetine DR CAP* 60 MG CAP.DR PO SCH (10:37)
[2017-09-05] MEDS: LORazepam TAB(*) 1 MG PO SCH ×2 (10:37→17:30)
[2017-09-05] MEDS: Multivitamins/Minerals TAB PO SCH (10:37)
[2017-09-05] MEDS: Metoprolol Tartrate TAB* 50 mg PO SCH ×2 (10:38→21:19)
[2017-09-05] MEDS: Folic Acid TAB* 1 MG PO SCH (10:38)
[2017-09-05] MEDS: Amitriptyline TAB* 25 MG PO SCH (10:38)
[2017-09-05] MEDS: Rivaroxaban TAB(*) 20 MG TAB PO SCH (10:38)
[2017-09-05] MEDS: Aspirin EC TAB* 81 MG TAB.EC PO SCH (10:38)
--- NOTE | 2017-09-05 11:34 | RAD ---
Indication: Evaluate for cirrhosis. Real-time sonography of the right upper quadrant was performed. The liver measures 15.6 cm in length. It is diffusely increased in echogenicity consistent with hepatic steatosis. No focal lesions are noted. The gallbladder demonstrates multiple echogenic foci with posterior acoustic shadowing consistent with cholelithiasis. No pericholecystic fluid is identified. Common duct is not dilated. The right kidney measures 12.1 x 6.3 x 6.3 cm with no hydronephrosis. The pancreas is not visualized. IMPRESSION: Cholelithiasis without biliary duct dilatation. Hepatic steatosis is present.
--- NOTE | 2017-09-05 13:18 | PN ---
Subjective Date of Service: 09/05/17 Interval History: HOSPITALIST PROGRESS NOTE Patient seen and examined at bedside. Continues to be confused. Received lorazepam earlier today and is now more sedated. Family History: Unchanged from Admission Social History: Unchanged from Admission Past Medical History: Unchanged from Admission Objective Active Medications: Albuterol (Ventolin Hfa Inhaler*) 2 puff INH BID PRN PRN Reason: SHORTNESS OF BREATH Last Admin: 09/02/17 18:14 Dose: 2 puff Albuterol (Ventolin 2.5 Mg/3 Ml Neb.Kourtney*) 2.5 mg INH Q4H PRN PRN Reason: SOB/WHEEZING Amitriptyline HCl (Elavil Tab*) 50 mg PO DAILY [facility] Last Admin: 09/05/17 10:38 Dose: 50 mg Amitriptyline HCl (Elavil Tab*) 100 mg PO BEDTIME [facility] Last Admin: 09/04/17 22:11 Dose: 100 mg Aspirin (Aspirin Ec Tab*) 81 mg PO DAILY [facility] Last Admin: 09/05/17 10:38 Dose: 81 mg Device (Nicotine Mouth Piece*) 1 each INH .USE WITH NICOTROL PRN PRN Reason: CRAVING Duloxetine HCl (Cymbalta Cap*) 60 mg PO DAILY [facility] Last Admin: 09/05/17 10:37 Dose: 60 mg Folic Acid (Folvite Tab*) 1 mg PO DAILY [facility] Last Admin: 09/05/17 10:38 Dose: 1 mg Gabapentin (Neurontin Cap(*)) 400 mg PO QID [facility] Last Admin: 09/05/17 10:37 Dose: 400 mg Haloperidol Lactate (Haldol Inj Iv/Im*) 5 mg IV SLOW PU Q6H PRN PRN Reason: AGITATION Thiamine HCl 250 mg/ Sodium (Chloride) 252.5 mls @ 255 mls/hr IV DAILY [facility] Stop: 09/11/17 08:59 Lactulose (Lactulose*) 30 ml PO TID [facility] Last Admin: 09/05/17 10:37 Dose: 30 ml Lorazepam (Ativan Tab(*)) 0 - 6 mg PO .PER [facility] PROTOCOL [facility] PRN Reason: Protocol Last Admin: 09/05/17 10:37 Dose: 2 mg Melatonin (Melatonin (Nf)) 3 mg PO BEDTIME [facility] Last Admin: 09/04/17 22:11 Dose: 3 mg Metoprolol Tartrate (Lopressor Tab*) 50 mg PO Q12HR [facility] Last Admin: 09/05/17 10:38 Dose: 50 mg Metoprolol Tartrate (Lopressor Iv*) 5 mg IV Q2H PRN PRN Reason: TACHYCARDIA Mometasone Furoate/Formoterol Fumar (Dulera 200/5 Mdi*) 2 puff INH BID [facility] Last Admin: 09/05/17 08:19 Dose: Not Given Multivitamins/Minerals (Theragran/Minerals Tab*) 1 tab PO DAILY [facility] Last Admin: 09/05/17 10:37 Dose: 1 tab Nicotine (Nicotine Inhaler*) 10 mg INH Q2H PRN PRN Reason: CRAVING Rivaroxaban (Xarelto(*)) 20 mg PO DAILY [facility] Last Admin: 09/05/17 10:38 Dose: 20 mg Vital Signs - 8 hr 09/05/17 09/05/17 09/05/17 08:00 08:18 09:38 Temperature 98.3 F Pulse Rate 81 88 Respiratory 18 19 24 Rate Blood Pressure 156/92 (mmHg) O2 Sat by Pulse 95 94 Oximetry Oxygen Devices in Use Now: Nasal Cannula - 2 liters Appearance: Middle aged male lying in a recliner in [facility]. Eyes: No Scleral Icterus Ears/Nose/Mouth/Throat: Mucous Membranes Moist Neck: Trachea Midline Neurological: - - Lethargic, arousable to voice, oriented to self, kept pulling his blankets over his head Result Diagrams: 09/05/17 05:15 09/06/17 05:27 Assess/Plan/Problems-Billing Assessment: Mr. Soto is a 57yo M with PMH of Afib s/p CVx1, COPD, HTN, tobacco abuse, alcohol abuse, who presented to ED with c/o palpitations and dyspnea, found to be in Afib RVR. - Patient Problems (1) Atrial fibrillation Comment: - S/p NORMA CV - plan to d/c on beta dashawn and Xarelto when stable. (2) Alcohol withdrawal Comment: - Confusion is waxing and waning. - Continue [facility] protocol. (3) Wernicke-Korsakoff syndrome (alcoholic) Comment: - Suspect patient may have a component of WK syndrome - confusion, nystagmus, and now ataxia. - Continue high dose Thiamine, but confusion is unchanged. (4) Hyperammonemia Comment: - Ammonia is up to 88 - may be contributing to his confusion - start lactulose and check liver US to r/o cirrhosis. (5) DVT prophylaxis Comment: - Xarelto. (6) Full code status Status and Disposition: Inpatient for management of alcohol withdrawal.
[2017-09-05] MEDS: CMCS Melatonin (NF) 3 MG TAB PO SCH (21:19)
[2017-09-05] MEDS: Amitriptyline TAB* 100 MG PO SCH (21:19)
[2017-09-06] MEDS ORDERED: NS 0.9% 500 ML* 500 ML IV ONE (05:38)
[2017-09-06 06:03] LABS: EGFR Non-African American 71.8 (>60)
[2017-09-06] MEDS: Mometasone/Formoter 200/5 MDI INH SCH ×2 (08:19→20:06)
[2017-09-06] MEDS: Metoprolol Tartrate TAB* 50 mg PO SCH ×2 (09:43→20:50)
[2017-09-06] MEDS: Gabapentin CAP(*) 300 MG PO SCH ×3 (09:43→20:49)
[2017-09-06] MEDS: Rivaroxaban TAB(*) 20 MG TAB PO SCH (09:43)
[2017-09-06] MEDS: Amitriptyline TAB* 25 MG PO SCH (09:43)
[2017-09-06] MEDS: DULoxetine DR CAP* 60 MG CAP.DR PO SCH (09:43)
[2017-09-06] MEDS: Aspirin EC TAB* 81 MG TAB.EC PO SCH (09:43)
[2017-09-06] MEDS: Multivitamins/Minerals TAB PO SCH (09:43)
[2017-09-06] MEDS: Folic Acid TAB* 1 MG PO SCH (09:43)
[2017-09-06] MEDS: Albuterol HFA INHALER* 8 gm MDI INH SCH ×2 (09:50→20:08)
[2017-09-06] MEDS: NS 0.9% 1000 ML* 1,000 ML IV SCH ×2 (09:56→22:33)
[2017-09-06] MEDS: NS 0.9% IV SCH (11:32)
[2017-09-06] MEDS: THIAMINE IV SCH (11:32)
--- NOTE | 2017-09-06 11:49 | RAD ---
Indication: Cough, pneumonia. Single frontal view of the chest performed at 0955 hours was reviewed. Comparison is made with previous exam dated August 30, 2017. No mediastinal shift is noted. There is cardiomegaly present. Bibasilar atelectasis is noted. Lung márquez appear hyperinflated. IMPRESSION: CARDIOMEGALY WITH HYPERINFLATED LUNG MÁRQUEZ AND BIBASILAR ATELECTASIS. NO PNEUMOTHORAX IS NOTED.
[2017-09-06] MEDS: LORazepam TAB(*) 1 MG PO PRN (13:54)
[2017-09-06] MEDS ORDERED: Haloperidol INJ IV/IM* 5 MG/ML AMP IM PRN (13:59)
--- NOTE | 2017-09-06 14:14 | PN ---
Subjective Date of Service: 09/06/17 Interval History: HOSPITALIST PROGRESS NOTE Patient seen and examined at bedside. His confusion continues to fluctuate. Was confused and hallucinating last night , choked on his lactulose and coughed up some phlegm with blood. This AM he was a little more oriented. Knows why he came to the hospital, realizes he changed rooms as this one has a different shower, but continues to see "mice in the kitchen". Hungry, asking for food. He recalls choking on lactulose - "it tastes nasty and I was downing it like a shot!" Family History: Unchanged from Admission Social History: Unchanged from Admission Past Medical History: Unchanged from Admission Objective Active Medications: Albuterol (Ventolin 2.5 Mg/3 Ml Neb.Kourtney*) 2.5 mg INH Q4H PRN PRN Reason: SOB/WHEEZING Albuterol (Ventolin Hfa Inhaler*) 2 puff INH BID [facility] Last Admin: 09/06/17 09:50 Dose: 2 puff Amitriptyline HCl (Elavil Tab*) 50 mg PO DAILY [facility] Last Admin: 09/06/17 09:43 Dose: 50 mg Amitriptyline HCl (Elavil Tab*) 100 mg PO BEDTIME [facility] Last Admin: 09/05/17 21:19 Dose: 100 mg Aspirin (Aspirin Ec Tab*) 81 mg PO DAILY [facility] Last Admin: 09/06/17 09:43 Dose: 81 mg Device (Nicotine Mouth Piece*) 1 each INH .USE WITH NICOTROL PRN PRN Reason: CRAVING Duloxetine HCl (Cymbalta Cap*) 60 mg PO DAILY [facility] Last Admin: 09/06/17 09:43 Dose: 60 mg Folic Acid (Folvite Tab*) 1 mg PO DAILY [facility] Last Admin: 09/06/17 09:43 Dose: 1 mg Gabapentin (Neurontin Cap(*)) 300 mg PO TID [facility] Last Admin: 09/06/17 13:08 Dose: 300 mg Haloperidol Lactate (Haldol Inj Iv/Im*) 5 mg IM Q6H PRN PRN Reason: Severe Agitation Thiamine HCl 250 mg/ Sodium (Chloride) 252.5 mls @ 255 mls/hr IV DAILY [facility] Stop: 09/11/17 08:59 Last Admin: 09/06/17 11:32 Dose: 255 mls/hr Sodium Chloride (Ns 0.9% 1000 Ml*) 1,000 mls @ 125 mls/hr IV PER RATE [facility] Last Admin: 09/06/17 09:56 Dose: 125 mls/hr Lactulose (Lactulose*) 30 ml PO TID [facility] Last Admin: 09/06/17 13:08 Dose: 30 ml Lorazepam (Ativan Tab(*)) 1 mg PO Q6H PRN PRN Reason: Anxiety/Agitation Last Admin: 09/06/17 13:54 Dose: 1 mg Melatonin (Melatonin (Nf)) 3 mg PO BEDTIME [facility] Last Admin: 09/05/17 21:19 Dose: 3 mg Metoprolol Tartrate (Lopressor Tab*) 50 mg PO Q12HR [facility] Last Admin: 09/06/17 09:43 Dose: 50 mg Mometasone Furoate/Formoterol Fumar (Dulera 200/5 Mdi*) 2 puff INH BID [facility] Last Admin: 09/06/17 08:19 Dose: 2 puff Multivitamins/Minerals (Theragran/Minerals Tab*) 1 tab PO DAILY [facility] Last Admin: 09/06/17 09:43 Dose: 1 tab Nicotine (Nicotine Inhaler*) 10 mg INH Q2H PRN PRN Reason: CRAVING Rivaroxaban (Xarelto(*)) 20 mg PO DAILY [facility] Last Admin: 09/06/17 09:43 Dose: 20 mg Vital Signs - 8 hr 09/06/17 09/06/17 09/06/17 07:43 07:57 08:21 Temperature 97.5 F Pulse Rate 79 93 Respiratory 18 20 20 Rate Blood Pressure 144/87 (mmHg) O2 Sat by Pulse 96 92 Oximetry Oxygen Devices in Use Now: None Appearance: Middle aged gentleman sitting up in a recliner in [facility]. Eyes: No Scleral Icterus Ears/Nose/Mouth/Throat: Mucous Membranes Moist Neck: Trachea Midline Respiratory: Symmetrical Chest Expansion and Respiratory Effort, Clear to Auscultation Cardiovascular: RRR - Normal S1 and S2 Neurological: - - AAOx2 (self and place), FRANZ, unsteady on his feet. Result Diagrams: 09/05/17 05:15 09/06/17 05:27 Assess/Plan/Problems-Billing Assessment: Mr. Soto is a 57yo M with PMH of Afib s/p CVx1, COPD, HTN, tobacco abuse, alcohol abuse, who presented to ED with c/o palpitations and dyspnea, found to be in Afib RVR. - Patient Problems (1) Alcohol withdrawal Comment: - Confusion is waxing and waning, but withdrawal seems to be resolved. - D/c WAM protocol. (2) Wernicke-Korsakoff syndrome (alcoholic) Comment: - Suspect patient may have WK syndrome - confusion, nystagmus, and ataxia. - Continue high dose Thiamine, as confusion seems to be a little improved. (3) Hyperammonemia Comment: - Ammonia down to - may be contributing to 67 - continue lactulose. - Liver US showed steatosis. (4) Hemoptysis Comment: - Suspect small amount of blood secondary to Xarelto. - Check portable CxR. (5) Atrial fibrillation Comment: - S/p NORMA CV - plan to d/c on beta dashawn and Xarelto when stable. (6) DVT prophylaxis Comment: - Xarelto. (7) Full code status Status and Disposition: Inpatient for management of alcohol withdrawal.
[2017-09-06] MEDS ORDERED: hydrALAZINE IV* 20 MG/ML VIAL IV SLOW PU PRN (16:37)
[2017-09-06] MEDS ORDERED: Metoprolol Tartrate TAB* 25 MG PO ONE (16:37)
[2017-09-06] MEDS: CMCS Melatonin (NF) 3 MG TAB PO SCH (20:49)
[2017-09-06] MEDS: Amitriptyline TAB* 100 MG PO SCH (20:50)
[2017-09-07] MEDS: LORazepam TAB(*) 1 MG PO PRN ×3 (05:03→19:52)
[2017-09-07] MEDS: Mometasone/Formoter 200/5 MDI INH SCH ×2 (08:24→21:30)
[2017-09-07] MEDS: Albuterol HFA INHALER* 8 gm MDI INH SCH ×2 (08:24→21:30)
[2017-09-07] MEDS ORDERED: Thiamine IV* 100 MG/ML 2 ML VIAL ONE (08:34)
[2017-09-07] MEDS: Gabapentin CAP(*) 300 MG PO SCH ×3 (08:52→21:24)
[2017-09-07] MEDS: Metoprolol Tartrate TAB* 50 mg PO SCH ×2 (08:52→21:24)
[2017-09-07] MEDS: Aspirin EC TAB* 81 MG TAB.EC PO SCH (08:53)
[2017-09-07] MEDS: Rivaroxaban TAB(*) 20 MG TAB PO SCH (08:54)
[2017-09-07] MEDS: Multivitamins/Minerals TAB PO SCH (08:54)
[2017-09-07] MEDS: Amitriptyline TAB* 25 MG PO SCH (08:54)
[2017-09-07] MEDS: Folic Acid TAB* 1 MG PO SCH (08:54)
[2017-09-07] MEDS: NS 0.9% IV SCH (08:55)
[2017-09-07] MEDS: DULoxetine DR CAP* 60 MG CAP.DR PO SCH (08:55)
[2017-09-07] MEDS: THIAMINE IV SCH (08:55)
--- NOTE | 2017-09-07 16:20 | PN ---
Subjective Date of Service: 09/07/17 Interval History: HOSPITALIST PROGRESS NOTE Patient seen and examined at bedside. Confusion is unchanged. He knows he's in the hospital, remembers he came with heart problems. Continues to hallucinate, was calmer when I saw him earlier today, but became more agitated. I returned to his room this afternoon to talk to his mother. She tells me he fell 1 week prior to admission and hit the right side of his head, but had no complaints after it. Family History: Unchanged from Admission Social History: Unchanged from Admission Past Medical History: Unchanged from Admission Objective Active Medications: Albuterol (Ventolin 2.5 Mg/3 Ml Neb.Kourtney*) 2.5 mg INH Q4H PRN PRN Reason: SOB/WHEEZING Albuterol (Ventolin Hfa Inhaler*) 2 puff INH BID [facility] Last Admin: 09/07/17 08:24 Dose: Not Given Amitriptyline HCl (Elavil Tab*) 50 mg PO DAILY [facility] Last Admin: 09/07/17 08:54 Dose: 50 mg Amitriptyline HCl (Elavil Tab*) 100 mg PO BEDTIME [facility] Last Admin: 09/06/17 20:50 Dose: 100 mg Aspirin (Aspirin Ec Tab*) 81 mg PO DAILY [facility] Last Admin: 09/07/17 08:53 Dose: 81 mg Device (Nicotine Mouth Piece*) 1 each INH .USE WITH NICOTROL PRN PRN Reason: CRAVING Duloxetine HCl (Cymbalta Cap*) 60 mg PO DAILY [facility] Last Admin: 09/07/17 08:55 Dose: 60 mg Folic Acid (Folvite Tab*) 1 mg PO DAILY [facility] Last Admin: 09/07/17 08:54 Dose: 1 mg Gabapentin (Neurontin Cap(*)) 300 mg PO TID [facility] Last Admin: 09/07/17 13:59 Dose: 300 mg Haloperidol Lactate (Haldol Inj Iv/Im*) 5 mg IM Q6H PRN PRN Reason: Severe Agitation Hydralazine HCl (Apresoline Iv*) 5 mg IV SLOW PU Q6H PRN PRN Reason: SBP>180 Thiamine HCl 250 mg/ Sodium (Chloride) 252.5 mls @ 255 mls/hr IV DAILY [facility] Stop: 09/11/17 08:59 Last Admin: 09/07/17 08:55 Dose: 255 mls/hr Lactulose (Lactulose*) 30 ml PO TID [facility] Last Admin: 09/07/17 14:00 Dose: 30 ml Lorazepam (Ativan Tab(*)) 1 mg PO Q6H PRN PRN Reason: Anxiety/Agitation Last Admin: 09/07/17 11:36 Dose: 1 mg Melatonin (Melatonin (Nf)) 3 mg PO BEDTIME [facility] Last Admin: 09/06/17 20:49 Dose: 3 mg Metoprolol Tartrate (Lopressor Tab*) 75 mg PO Q12HR [facility] Last Admin: 09/07/17 08:52 Dose: 75 mg Mometasone Furoate/Formoterol Fumar (Dulera 200/5 Mdi*) 2 puff INH BID [facility] Last Admin: 09/07/17 08:24 Dose: Not Given Multivitamins/Minerals (Theragran/Minerals Tab*) 1 tab PO DAILY [facility] Last Admin: 09/07/17 08:54 Dose: 1 tab Nicotine (Nicotine Inhaler*) 10 mg INH Q2H PRN PRN Reason: CRAVING Rivaroxaban (Xarelto(*)) 20 mg PO DAILY [facility] Last Admin: 09/07/17 08:54 Dose: 20 mg Vital Signs - 8 hr 09/07/17 15:19 Temperature 98.8 F Pulse Rate 79 Respiratory 24 Rate Blood Pressure 175/91 (mmHg) O2 Sat by Pulse 95 Oximetry Oxygen Devices in Use Now: None Appearance: Middle aged male sitting up in a chair in [facility]. Eyes: No Scleral Icterus Ears/Nose/Mouth/Throat: Mucous Membranes Moist Neck: Trachea Midline Respiratory: Symmetrical Chest Expansion and Respiratory Effort, Clear to Auscultation Cardiovascular: RRR - Normal S1 and S2 Abdominal: NL Sounds; No Tenderness; No Distention Neurological: NL Muscle Strength and Tone, - - AAOx2 (self and place) Result Diagrams: 09/05/17 05:15 09/06/17 05:27 Assess/Plan/Problems-Billing Assessment: Mr. Soto is a 57yo M with PMH of Afib s/p CVx1, COPD, HTN, tobacco abuse, alcohol abuse, who presented to ED with c/o palpitations and dyspnea, found to be in Afib RVR. - Patient Problems (1) Wernicke-Korsakoff syndrome (alcoholic) Comment: - Suspect patient may have WK syndrome - confusion, nystagmus, and ataxia. - Continue high dose Thiamine, as confusion seems to be a little improved. - With the new information patient had a fall prior to admission, will check CT brain to r/o SDH. - His mom questions if he had a stroke since his confusion worsened after cardioversion - he has no focal deficits on his neuro exam, but may consider MRI brain depending on his CT brain result. (2) Alcohol withdrawal Comment: - Confusion is waxing and waning, but withdrawal seems to be resolved. - D/c [place] protocol. (3) Hyperammonemia Comment: - Ammonia down to 62 - may be contributing to confusion - continue lactulose. - Liver US showed steatosis. (4) Hemoptysis Comment: - Suspect small amount of blood secondary to Xarelto. - CxR showed no infiltrate. (5) Atrial fibrillation Comment: - S/p NORMA CV - plan to d/c on beta dashawn and Xarelto when stable. (6) DVT prophylaxis Comment: - Xarelto. (7) Full code status Status and Disposition: Inpatient for management of alcohol withdrawal/encephalopathy. Mother updated at bedside.
--- NOTE | 2017-09-07 16:44 | RAD ---
Indication: Fall, trauma to the right side of the head. CT of the brain was performed without IV contrast. Ventricular structures are midline. No midline shift is noted. The extra-axial spaces are unremarkable. There is no evidence of intracranial mass or hemorrhage. Mastoid air cells and paranasal sinuses are otherwise unremarkable. Mastoid air cells and paranasal sinuses are unremarkable IMPRESSION: No intracranial mass or hemorrhage is noted.
[2017-09-07] MEDS: Nicotine Inhaler* 10 MG AMP INH PRN (20:12)
[2017-09-07] MEDS: Mouth Piece, Nicotine* 1 EACH CARTRIDGE INH PRN (20:12)
[2017-09-07] MEDS: Amitriptyline TAB* 100 MG PO SCH (21:24)
[2017-09-07] MEDS: CMCS Melatonin (NF) 3 MG TAB PO SCH (21:24)
[2017-09-08 05:01] LABS: ABS Basophils 0.1 10^3/ul (0-0.2); ABS Eosinophils 0.3 10^3/ul (0-0.6); ABS Monocytes 1.2 10^3/ul (0-0.8); ABS Neutrophils 4.2 10^3/ul (1.5-7.7); ABS Nucleated RBC 0 10^3/ul; Eosinophil % 4.5 % (0-6); Hematocrit 44 % (42-52); Hemoglobin 14.3 g/dl (14.0-18.0); Lymphocyte % 15.2 % (25-47); Mean Corpuscular HGB Conc 33 g/dl (31-36); Mean Corpuscular Hemoglobin 32 pg (27-31); Mean Corpuscular Volume 99 fL (80-94); Mean Platelet Volume 8.8 um3 (7.4-10.4); Nucleated Red Blood Cells % 0.1; Platelet Count 216 10^3/ul (150-450); Red Blood Count 4.43 10^6/ul (4.0-5.4); Red Cell Distribution Width 14 % (10.5-15); White Blood Count 6.8 10^3/ul (3.5-10.8)
[2017-09-08 05:18] LABS: EGFR Non-African American 92.3 (>60)
[2017-09-08] MEDS: Albuterol HFA INHALER* 8 gm MDI INH SCH ×2 (08:41→21:18)
[2017-09-08] MEDS: Mometasone/Formoter 200/5 MDI INH SCH ×2 (08:41→21:17)
[2017-09-08] MEDS: Aspirin EC TAB* 81 MG TAB.EC PO SCH (10:09)
[2017-09-08] MEDS: Amitriptyline TAB* 25 MG PO SCH (10:09)
[2017-09-08] MEDS: DULoxetine DR CAP* 60 MG CAP.DR PO SCH (10:09)
[2017-09-08] MEDS: Gabapentin CAP(*) 300 MG PO SCH ×3 (10:09→20:38)
[2017-09-08] MEDS: Folic Acid TAB* 1 MG PO SCH (10:09)
[2017-09-08] MEDS: Multivitamins/Minerals TAB PO SCH (10:10)
[2017-09-08] MEDS: Rivaroxaban TAB(*) 20 MG TAB PO SCH (10:10)
[2017-09-08] MEDS: Metoprolol Tartrate TAB* 50 mg PO SCH ×2 (10:10→20:39)
[2017-09-08] MEDS: NS 0.9% IV SCH (10:37)
[2017-09-08] MEDS: THIAMINE IV SCH (10:37)
[2017-09-08] MEDS ORDERED: Omeprazole CAP* 20 MG PO ONE (17:12)
--- NOTE | 2017-09-08 20:36 | PN ---
Subjective Date of Service: 09/08/17 Interval History: He feels good today. Took several walks in the hallways with aides. No complaints at all. HIs family is at bedside and say he is much better todya. Family History: Unchanged from Admission Social History: Unchanged from Admission Past Medical History: Unchanged from Admission Objective Active Medications: Albuterol (Ventolin 2.5 Mg/3 Ml Neb.Kourtney*) 2.5 mg INH Q4H PRN PRN Reason: SOB/WHEEZING Last Admin: 09/08/17 15:28 Dose: 2.5 mg Albuterol (Ventolin Hfa Inhaler*) 2 puff INH BID [facility] Last Admin: 09/08/17 08:41 Dose: Not Given Amitriptyline HCl (Elavil Tab*) 50 mg PO DAILY [facility] Last Admin: 09/08/17 10:09 Dose: 50 mg Amitriptyline HCl (Elavil Tab*) 100 mg PO BEDTIME [facility] Last Admin: 09/07/17 21:24 Dose: 100 mg Aspirin (Aspirin Ec Tab*) 81 mg PO DAILY [facility] Last Admin: 09/08/17 10:09 Dose: 81 mg Device (Nicotine Mouth Piece*) 1 each INH .USE WITH NICOTROL PRN PRN Reason: CRAVING Last Admin: 09/07/17 20:12 Dose: 1 each Duloxetine HCl (Cymbalta Cap*) 60 mg PO DAILY [facility] Last Admin: 09/08/17 10:09 Dose: 60 mg Folic Acid (Folvite Tab*) 1 mg PO DAILY [facility] Last Admin: 09/08/17 10:09 Dose: 1 mg Gabapentin (Neurontin Cap(*)) 300 mg PO TID [facility] Last Admin: 09/08/17 14:01 Dose: 300 mg Haloperidol Lactate (Haldol Inj Iv/Im*) 5 mg IM Q6H PRN PRN Reason: Severe Agitation Last Admin: 09/07/17 22:23 Dose: 5 mg Hydralazine HCl (Apresoline Iv*) 5 mg IV SLOW PU Q6H PRN PRN Reason: SBP>180 Thiamine HCl 250 mg/ Sodium (Chloride) 252.5 mls @ 255 mls/hr IV DAILY [facility] Stop: 09/11/17 08:59 Last Admin: 09/08/17 10:37 Dose: 255 mls/hr Lactulose (Lactulose*) 30 ml PO TID [facility] Last Admin: 09/08/17 14:02 Dose: 30 ml Lorazepam (Ativan Tab(*)) 1 mg PO Q6H PRN PRN Reason: Anxiety/Agitation Last Admin: 09/07/17 19:52 Dose: 1 mg Melatonin (Melatonin (Nf)) 3 mg PO BEDTIME [facility] Last Admin: 09/07/17 21:24 Dose: 3 mg Metoprolol Tartrate (Lopressor Tab*) 75 mg PO Q12HR [facility] Last Admin: 09/08/17 10:10 Dose: 75 mg Mometasone Furoate/Formoterol Fumar (Dulera 200/5 Mdi*) 2 puff INH BID [facility] Last Admin: 09/08/17 08:41 Dose: Not Given Multivitamins/Minerals (Theragran/Minerals Tab*) 1 tab PO DAILY [facility] Last Admin: 09/08/17 10:10 Dose: 1 tab Nicotine (Nicotine Inhaler*) 10 mg INH Q2H PRN PRN Reason: CRAVING Last Admin: 09/07/17 20:12 Dose: 10 mg Rivaroxaban (Xarelto(*)) 20 mg PO DAILY [facility] Last Admin: 09/08/17 10:10 Dose: 20 mg Vital Signs - 8 hr 09/08/17 09/08/17 14:01 19:31 Respiratory 16 18 Rate Oxygen Devices in Use Now: None Appearance: alert, no distress, well appearing and appropriate Eyes: No Scleral Icterus Ears/Nose/Mouth/Throat: NL Teeth, Lips, Gums Neck: NL Appearance and Movements; NL JVP Respiratory: Symmetrical Chest Expansion and Respiratory Effort, Clear to Auscultation Cardiovascular: NL Sounds; No Murmurs; No JVD, RRR Abdominal: NL Sounds; No Tenderness; No Distention, - - obese, no fluid wave, liver nonpalpable Lymphatic: No Cervical Adenopathy Extremities: No Edema Skin: No Rash or Ulcers Neurological: Alert and Oriented x 3 Result Diagrams: 09/08/17 04:50 09/08/17 04:50 Assess/Plan/Problems-Billing Assessment: Mr. Soto is a 57yo M with PMH of Afib s/p CVx1, COPD, HTN, tobacco abuse, alcohol abuse, who presented to ED with c/o palpitations and dyspnea, found to be in Afib RVR. His admission was complicated by acute encephalopathy due to etoh withdrawal - Patient Problems (1) Alcohol withdrawal Current Visit: Yes Status: Acute Code(s): F10.239 - ALCOHOL DEPENDENCE WITH WITHDRAWAL, UNSPECIFIED SNOMED Code(s): 289143138 Comment: markedly improved today, no evidence of withdrawal no WAM protocol (dc/ed yesterday) (2) Atrial fibrillation Current Visit: Yes Status: Acute Priority: Medium Code(s): I48.91 - UNSPECIFIED ATRIAL FIBRILLATION SNOMED Code(s): 35179152 Comment: now in NSR after a successful cardioverion continue xarelto and bb (3) Wernicke-Korsakoff syndrome (alcoholic) Current Visit: Yes Status: Acute Code(s): F10.96 - ALCOHOL USE, UNSP W ALCOH -INDUCE PERSIST AMNESTIC DISORDER SNOMED Code(s): 77236029 Comment: much improved today continue high dose thiamine (4) COPD (chronic obstructive pulmonary disease) Current Visit: No Status: Acute Priority: Medium Code(s): J44.9 - CHRONIC OBSTRUCTIVE PULMONARY DISEASE, UNSPECIFIED SNOMED Code(s): 77030921 Comment: no exacerbation Status and Disposition: plan for [place] tomorrow. this was discussed with the patient, his mom and brother
[2017-09-08] MEDS: Amitriptyline TAB* 100 MG PO SCH (20:39)
[2017-09-08] MEDS: LORazepam TAB(*) 1 MG PO PRN (20:39)
[2017-09-08] MEDS: CMCS Melatonin (NF) 3 MG TAB PO SCH (20:39)
[2017-09-09] MEDS: Mometasone/Formoter 200/5 MDI INH SCH ×2 (08:36→20:33)
[2017-09-09] MEDS: Albuterol HFA INHALER* 8 gm MDI INH SCH ×2 (08:37→20:30)
[2017-09-09] MEDS: Metoprolol Tartrate TAB* 50 mg PO SCH ×2 (09:07→20:28)
[2017-09-09] MEDS: Rivaroxaban TAB(*) 20 MG TAB PO SCH (09:07)
[2017-09-09] MEDS: Gabapentin CAP(*) 300 MG PO SCH ×3 (09:08→20:28)
[2017-09-09] MEDS: Folic Acid TAB* 1 MG PO SCH (09:08)
[2017-09-09] MEDS: DULoxetine DR CAP* 60 MG CAP.DR PO SCH (09:08)
[2017-09-09] MEDS: Aspirin EC TAB* 81 MG TAB.EC PO SCH (09:08)
[2017-09-09] MEDS: Multivitamins/Minerals TAB PO SCH (09:08)
[2017-09-09] MEDS: Amitriptyline TAB* 25 MG PO SCH (09:09)
[2017-09-09] MEDS: NS 0.9% IV SCH (09:44)
[2017-09-09] MEDS: THIAMINE IV SCH (09:44)
[2017-09-09] MEDS: Mouth Piece, Nicotine* 1 EACH CARTRIDGE INH PRN (15:30)
[2017-09-09] MEDS: Nicotine Inhaler* 10 MG AMP INH PRN (15:30)
--- NOTE | 2017-09-09 16:12 | DS ---
DISCHARGE SUMMARY: DATE OF ADMISSION: 08/31/17 DATE OF DISCHARGE: 09/09/17 PRINCIPAL DISCHARGE DIAGNOSES: 1. Atrial fibrillation with rapid ventricular response. 2. Alcohol withdrawal. SECONDARY DISCHARGE DIAGNOSES: 1. Alcohol abuse. 2. Chronic obstructive pulmonary disease. 3. Hypertension. 4. Tobacco abuse. 5. History of avascular necrosis status post hip replacement. PHYSICAL EXAMINATION AT THE TIME OF DISCHARGE: Temperature 98.4, heart rate 98 , respiratory rate 20, pulse ox 90% on room air, and blood pressure 142/79. General: Alert, well-appearing man, in no distress, walking in the hallways. HEENT: Pupils are equal, round, and reactive to light. No nystagmus. Moist mucosa. No oropharyngeal exudates or erythema. Neck: No JVP. No cervical adenopathy. No thyromegaly. Chest: Regular, rate, and rhythm. No murmurs. PMI nondisplaced. Lungs: Clear bilaterally. Abdomen: Soft, nontender, and nondistended. No guarding, rebound, or rigidity. Liver is palpable at the costal margin. Extremities: No edema, no rashes, no ulcers, no asterixis. Neurologic: Gait normal. Strength 5/5 and sensation grossly intact. HOSPITAL COURSE BY PROBLEM: 1. AFib with RVR. At admission he was noted to be in AFib with RVR when he presented with shortness of breath and chest heaviness. He received digoxin and Cardizem and metoprolol in the emergency department; however, atrial fibrillation persisted and Cardiology was consulted. They performed a NORMA cardioversion on 09/01/17 which was successful. He was treated with therapeutic Lovenox and then with Xarelto which is a new medication for him. He tolerated Xarelto well. He is being continued on metoprolol 75 mg q.12 and has been rate controlled on this dose for several days prior to admission. 2. Acute alcohol withdrawal and concern for Wernicke's encephalopathy. Mr. Soto was noted to be acutely encephalopathic and a response team was called on him during this admission. This was thought to be secondary to alcohol withdrawal and he required the WAM protocol as well as IV thiamine. He improved markedly by the time of admission. He is being discharged on multivitamin, folic acid, thiamine, and lactulose p.r.n. Of note, a liver ultrasound showed hepatic steatosis but no cirrhosis; however, his ammonia was elevated on this admission and he responded well to lactulose. Lactulose should be considered should he develop asterixes, somnolence, or delirium at discharge. However, at the time of discharge, he is oriented x3, cooperative, and pleasant. 3. COPD. He had no evidence of exacerbation on this admission. He is on room air at the time of discharge. 4. Tobacco abuse. He has been maintained on a nicotine inhaler. He, however, is not motivated to quit at this time and declines further treatment. DISCHARGE MEDICATIONS: 1. Cymbalta 60 mg daily. 2. Gabapentin 400 mg q.i.d. 3. Amlodipine 5 mg daily. 4. Dulera 2 puffs b.i.d. 5. Albuterol 2 puffs b.i.d. p.r.n. wheezing. 6. Multivitamin daily. 7. Aspirin 81 mg daily. 8. Amitriptyline 50 mg in the morning and 100 mg at bedtime. 9. Albuterol 2.5 mg nebulizer solution q.4 p.r.n. wheezing. 10. Folic acid 1 mg daily. 11. Melatonin 3 mg at bedtime. 12. Metoprolol 75 mg q.12. 13. Xarelto 20 mg daily. 14. Thiamine 100 mg daily. 15. Lactulose 30 mL p.o. t.i.d. p.r.n. confusion. DISPOSITION: Mr. Soto is being discharged to [place] for short-term rehab. He and his family are agreeable to this plan. He should come back to the emergency department should he experience any further uncontrolled heart rate, chest pain, shortness of breath, or delirium. [id number]/[facility] #: [id number] [facility]
[2017-09-09] MEDS: Amitriptyline TAB* 100 MG PO SCH (20:27)
[2017-09-09] MEDS: CMCS Melatonin (NF) 3 MG TAB PO SCH (20:28)
[2017-09-10 08:13] VITALS: BP 154/80
[2017-09-10] MEDS: Folic Acid TAB* 1 MG PO SCH (08:25)
[2017-09-10] MEDS: Amitriptyline TAB* 25 MG PO SCH (08:25)
[2017-09-10] MEDS: Aspirin EC TAB* 81 MG TAB.EC PO SCH (08:25)
[2017-09-10] MEDS: Gabapentin CAP(*) 300 MG PO SCH (08:25)
[2017-09-10] MEDS: DULoxetine DR CAP* 60 MG CAP.DR PO SCH (08:25)
[2017-09-10] MEDS: Mometasone/Formoter 200/5 MDI INH SCH (08:26)
[2017-09-10] MEDS: Metoprolol Tartrate TAB* 50 mg PO SCH (08:26)
[2017-09-10] MEDS: Rivaroxaban TAB(*) 20 MG TAB PO SCH (08:26)
[2017-09-10] MEDS: Multivitamins/Minerals TAB PO SCH (08:26)
[2017-09-10] MEDS: Albuterol HFA INHALER* 8 gm MDI INH SCH (08:27)
[2017-09-10] MEDS: THIAMINE IV SCH (09:33)
[2017-09-10] MEDS: NS 0.9% IV SCH (09:33)
== END 2017-09-10 15:32 | DRG 309 ==
LOC: ED 22:46 → SSU 08-31 00:28 → MEDTELE 08-31 01:06 → OBSVTOIN 09-01 12:00 → MEDTELE 09-02 02:49
PROVIDERS: ADMIT Internal Medicine; ATTEND Internal Medicine
PROC: 5A2204Z Restoration of Cardiac Rhythm, Single (ICD-10-PCS; 2017-09-01)
PROC: B24BZZ4 Ultrasonography of Heart with Aorta, Transesophageal (ICD-10-PCS; principal; 2017-09-01 13:30)
DX: I48.0 Paroxysmal atrial fibrillation (principal); F10.239 Alcohol dependence with withdrawal, unspecified; F10.251 Alcohol dependence with alcohol-induced psychotic disorder with hallucinations; E72.20 Disorder of urea cycle metabolism, unspecified; R04.2 Hemoptysis; E51.2 Wernicke's encephalopathy; I10 Essential (primary) hypertension; Y90.9 Presence of alcohol in blood, level not specified; G47.30 Sleep apnea, unspecified; E89.0 Postprocedural hypothyroidism; R27.0 Ataxia, unspecified; K76.0 Fatty (change of) liver, not elsewhere classified; J44.9 Chronic obstructive pulmonary disease, unspecified; Z96.643 Presence of artificial hip joint, bilateral; F17.210 Nicotine dependence, cigarettes, uncomplicated; Z88.6 Allergy status to analgesic agent; Z88.5 Allergy status to narcotic agent; Z88.8 Allergy status to other drugs, medicaments and biological substances; Z87.01 Personal history of pneumonia (recurrent); Z85.3 Personal history of malignant neoplasm of breast; Z85.828 Personal history of other malignant neoplasm of skin; Z80.3 Family history of malignant neoplasm of breast; Z82.49 Family history of ischemic heart disease and other diseases of the circulatory system; Z79.82 Long term (current) use of aspirin
CPT/HCPCS: 36415; 70450; 71045; 76705; 80048; 80053; 80320; 82140; 83735; 83880; 84443; 84484; 85025; 85610; 85730; 92960; 93005; 93306; 93312; 93325; 94640; 94760; 99156; 99157; 99284; A9270-GY; G0480; G8978-GP-CJ; G8979-GP-CI; J1160; J1630; J1650; J2250; J2310; J3010; J3411; J3475

== ENCOUNTER 2019-01-03 14:00 | Inpatient (IN) | payer MEDICARE ==
[2019-01-03 14:27] LABS: Hematocrit 52 % (42-52); Hemoglobin 17.7 g/dL (14.0-18.0); Mean Corpuscular HGB Conc 34 g/dL (31-36); Mean Corpuscular Hemoglobin 33 pg (27-31); Mean Corpuscular Volume 95 fL (80-94); Platelet Count 275 10^3/uL (150-450); Red Blood Count 5.42 10^6 /uL (4.18-5.48); Red Cell Distribution Width 17 % (10-15)
[2019-01-03 14:37] LABS: INR 1.11 (0.82-1.09)
[2019-01-03 14:43] LABS: Troponin I 0.01 ng/mL (<0.04)
[2019-01-03 14:44] LABS: Albumin 4.4 g/dL (3.2-5.2); Albumin/Globulin Ratio 1.1 (1-3); BUN/Creatinine Ratio 8.6 (8-20); Calcium 9.7 mg/dL (8.6-10.3); EGFR African American 78.8 (>60); EGFR Non-African American 65.1 (>60); Potassium 3.3 mmol/L (3.5-5.0); Total Bilirubin 1.3 mg/dL (0.2-1.0); Total Protein 8.4 g/dL (6.4-8.9)
[2019-01-03 14:45] LABS: CKMB ng/mL 1.5 ng/mL (0.6-6.3)
[2019-01-03] MEDS ORDERED: methylPREDNISolone 125 MG* 2 ML VIAL IV ONE (14:52)
[2019-01-03] MEDS ORDERED: Albuterol/Ipratropium NEB.SOL* Albuterol 2.5 MG/Ipratropium 0.5 MG 3 ML INH ONE (14:52)
[2019-01-03] MEDS ORDERED: Potassium Chlor TAB* 20 MEQ TAB.ER PO ONE (14:54)
[2019-01-03 15:03] LABS: ABS Basophils 0.1 10^3/ul (0-0.2); ABS Eosinophils 0.1 10^3/ul (0-0.6); ABS Lymphocytes 0.8 10^3/ul (1.0-4.8); ABS Monocytes 1.6 10^3/ul (0-0.8); ABS Neutrophils 14.4 10^3/ul (1.5-7.7); Eosinophil % 0.5 %; Lymphocyte % 4.9 %
[2019-01-03 15:32] LABS: C Reactive Protein 119.6 mg/L (<8.01)
[2019-01-03] MEDS ORDERED: Albuterol 2.5 MG/3 ML NEB.SOL* (0.083%) INH ONE ×2 (15:58→16:57)
[2019-01-03] MEDS ORDERED: Clotrimazole 1% CREAM* 30 GM TOPICAL ONE (16:55)
--- NOTE | 2019-01-03 18:04 | ED ---
Shortness of Breath - HPI Summary HPI Summary: Patient complains of SOB 2-3 weeks, subjective fever, FLETCHER 3 days. States symptoms are worse with exertion, not improved with inhaler, progressive. Productive cough with white sputum. Also complains of swelling and redness to scrotum and medial bilateral thighs, burning with urination 3-4 days. Denies sore throat, ear pain, CP, N/V/D, abdominal pain, change in BM. Medical history is chronic EtOH, A. fib, COPD, ILA. Patient on Xarelto. Has inhaler but no nebulizer at home. - History of Current Complaint Chief Complaint: EDShortnessOfBreath Time Seen by Provider: 01/03/19 14:43 Hx Obtained From: Patient Onset/Duration: Gradual Onset, Lasting Weeks Current Severity: Moderate Dyspnea At: Orthopena Aggravating Factors: Movement, Deep Breaths, Recumbent Position Alleviating Factors: Upright Position Associated Signs & Symptoms: Cough (Productive), Wheezing, Fever - Allergy/Home Medications Allergies/Adverse Reactions: Allergies Allergy/AdvReac Type Severity Reaction Status Date / Time codeine Allergy Rash Verified 08/30/17 23:35 oxycodone [From Percocet] Allergy Rash Verified 08/30/17 23:35 propoxyphene Allergy Rash Verified 08/30/17 23:36 [From Darvocet-N] Home Medications: Home Medications Amitriptyline TAB* [Elavil TAB*] 150 mg PO BEDTIME 01/03/19 [History Confirmed 01/03/19] Aspirin EC TAB* [Ecotrin EC Low Dose 81 MG*] 81 mg PO DAILY 01/03/19 [History Confirmed 01/03/19] Atenolol TAB* [Tenormin TAB* 50 MG] 100 mg PO DAILY 01/03/19 [History Confirmed 01/03/19] Gabapentin CAP(*) [Neurontin 300 CAP(*)] 600 mg PO BEDTIME 01/03/19 [History Confirmed 01/03/19] Gabapentin CAP(*) [Neurontin 400 mg CAP(*)] 1,200 mg PO BID 01/03/19 [History Confirmed 01/03/19] Omeprazole (Nf) [Prilosec (NF)] 40 mg PO DAILY PRN 01/03/19 [History Confirmed 01/03/19] Triamterene/HCTZ 37.5-25 MG* [Dyazide CAP*] 1 cap PO BID 01/03/19 [History Confirmed 01/03/19] PMH/Surg Hx/FS Hx/Imm Hx Endocrine/Hematology History: Reports: Hx Anticoagulant Therapy Denies: Hx Diabetes, Hx Anemia, Hx Unexplained Bleeding Cardiovascular History: Reports: Hx Atrial Fibrillation, Hx Hypertension, Other Cardiovascular Problems/Disorders - palpitation Denies: Hx Aneurysm, Hx Angina, Hx Angioplasty, Hx Auto Implanted Cardiovert Defib, Hx Cardiac Arrest, Hx Cardiomegaly, Hx Congenital Heart Disease, Hx Congestive Heart Failure, Hx Coronary Artery Disease, Hx Deep Vein Thrombosis, Hx Embolism, Hx Hypercholesterolemia, Hx Hypotension, Hx Pacemaker/ICD, Hx Peripheral Vascular Disease, Hx Rheumatic Fever, Hx Syncope, Hx Valvular Heart Disease Respiratory History: Reports: Hx Asthma, Hx Chronic Obstructive Pulmonary Disease (COPD), Hx Pneumonia, Hx Sleep Apnea, Other Respiratory Problems/ Disorders - use cpap at home Denies: Hx Chronic Bronchitis, Hx Cystic Fibrosis, Hx Lung Cancer, Hx Pleural Effusion, Hx Pulmonary Edema, Hx Pulmonary Embolism GI History: Denies: Hx Cirrhosis, Hx Crohn's Disease, Hx Obstructive Bowel, Hx Ileostomy , Hx Pyloric Stenosis, Other GI Disorders History: Denies: Hx Dialysis Comment Only: Hx Acute Renal Failure - ILA Musculoskeletal History: Reports: Hx Bursitis - RIGHT LOWER SIDE/BACK Denies: Hx Arthritis, Hx Back Problems, Hx Fibromyalgia, Hx Gout, Hx Orthopedic Injury, Hx Osteoporosis, Hx Scoliosis, Hx Tendonitis, Other Musculoskeletal History Sensory History: Reports: Hx Contacts or Glasses Denies: Hx Cataracts, Hx Eye Injury, Hx Eye Prosthesis, Hx Glaucoma, Hx Legally Blind, Hx Macular Degeneration, Hx Vision Problem, Hx Deafness, Hx Hearing Aid, Hx Hearing Problem, Other Sensory Impairments Opthamlomology History: Reports: Hx Contacts or Glasses Denies: Hx Cataracts, Hx Eye Injury, Hx Eye Prosthesis, Hx Glaucoma, Hx Legally Blind, Hx Macular Degeneration, Hx Vision Problem, Other Sensory Impairments Neurological History: Reports: Other Neuro Impairments/Disorders - Numbness to upper L thigh Denies: Hx Dementia, Hx Developmental Delay, Hx Headaches, Hx Migraine, Hx Nerve Disease, Hx Seizures, Hx Spinal Cord Injury, Hx Transient Ischemic Attacks (TIA) Psychiatric History: Reports: Hx Anxiety, Hx Depression - Cancer History Cancer Type, 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, L breast, L arm Hx Chemotherapy: No Hx Radiation Therapy: No Hx Palliative Cancer Treatment: No - Surgical History Surgery Procedure, Year, and Place: Thyroidectomy; rotator cuff repair bilat; carpal tunnel right hand x 2, Skin tumor removed x2 Hx Anesthesia Reactions: No Infectious Disease History: No Infectious Disease History: Denies: Hx Clostridium Difficile, Hx Hepatitis, Hx Human Immunodeficiency Virus (HIV), Hx of Known/Suspected MRSA, Hx Shingles, Hx Tuberculosis, Hx Known/ Suspected VRE, Hx Known/Suspected VRSA, History Other Infectious Disease, Traveled Outside the [place] in Last 30 Days - Family History Known Family History: Positive: Other - pos: Breast CA, MGM - Social History Alcohol Use: Daily Alcohol Amount: 1-2 beers Hx Substance Use: No Substance Use Type: Reports: None Hx Tobacco Use: Yes Smoking Status (MU): Light Every Day Tobacco Smoker Type: Cigarettes Amount Used/How Often: 6 cigs a day Length of Time of Smoking/Using Tobacco: 40yrs Have You Smoked in the Last Year: Yes Review of Systems Positive: Fever Eyes: Negative ENT: Negative Cardiovascular: Negative Positive: Shortness Of Breath, Cough Gastrointestinal: Negative Genitourinary: Negative Musculoskeletal: Negative Skin: Other Neurological: Negative Psychological: Normal All Other Systems Reviewed And Are Negative: Yes Physical Exam - Summary Physical Exam Summary: Extra 20 wheezing bilaterally. Regular rate and rhythm. Patient is audibly wheezing, sitting upright. Abdomen soft nontender. No peripheral edema. Scrotum and bilateral medial thighs are erythematous with white curd-like film. Genital exam otherwise unremarkable. Triage Information Reviewed: Yes Vital Signs On Initial Exam: Initial Vitals Temp Pulse Resp BP Pulse Ox 98.9 F 124 26 138/100 94 01/03/19 14:03 01/03/19 14:03 01/03/19 14:03 01/03/19 14:03 01/03/19 14:03 Vital Signs Reviewed: Yes Appearance: Positive: Well-Appearing Skin: Positive: Warm Head/Face: Positive: Normal Head/Face Inspection Eyes: Positive: Normal Neck: Positive: Supple Respiratory/Lung Sounds: Positive: Wheezes Abdomen Description: Positive: Nontender Male Genital Exam: Positive: Erythema, Scrotum Tenderness (R), Scrotum Tenderness (L). Negative: Bleeding, Hernia Mass, Inguinal Tenderness, Urethral Discharge Musculoskeletal: Positive: Normal Neurological: Positive: Normal Psychiatric: Positive: Normal AVPU Assessment: Alert - Stephanie Coma Scale Best Eye Response: 4 - Spontaneous Best Verbal Response: 5 - Oriented Diagnostics - Vital Signs Vital Signs Temp Pulse Resp BP Pulse Ox 01/03/19 17:46 96 16 96 01/03/19 17:28 24 120/77 01/03/19 17:00 99 24 94 01/03/19 16:58 100 19 122/74 95 01/03/19 16:28 102 23 108/75 95 01/03/19 16:23 99 13 92 01/03/19 16:00 100 21 92 01/03/19 15:58 90 21 116/77 89 01/03/19 15:28 23 139/79 01/03/19 15:12 99 16 98 01/03/19 15:02 99 25 91 01/03/19 14:34 24 01/03/19 14:30 110 22 134/85 96 01/03/19 14:28 112 17 97 01/03/19 14:03 98.9 F 124 26 138/100 94 - Laboratory Lab Results: Lab Results 01/03/19 01/03/19 01/03/19 Range/Units 14:16 14:16 14:16 WBC 17.0 H (3.5-10.8) 10^3/uL RBC 5.42 (4.18-5.48) 10^6 /uL Hgb 17.7 (14.0-18.0) g/dL Hct 52 (42-52) % MCV 95 H (80-94) fL MCH 33 H (27-31) pg MCHC 34 (31-36) g/dL RDW 17 H (10-15) % Plt Count 275 (150-450) 10^3/uL MPV 8.0 (7.4-10.4) fL Neut % (Auto) 84.9 % Lymph % (Auto) 4.9 % Alexander % (Auto) 9.3 % Eos % (Auto) 0.5 % Baso % (Auto) 0.4 % Absolute Neuts (auto) 14.4 H (1.5-7.7) 10^3/ul Absolute Lymphs (auto) 0.8 L (1.0-4.8) 10^3/ul Absolute Monos (auto) 1.6 H (0-0.8) 10^3/ul Absolute Eos (auto) 0.1 (0-0.6) 10^3/ul Absolute Basos (auto) 0.1 (0-0.2) 10^3/ul Absolute Nucleated RBC 0.0 10^3/ul Nucleated RBC % 0.0 INR (Anticoag Therapy) 1.11 H (0.82-1.09) ABG pH (7.35-7.45) ABG pCO2 (35-45) mmHg ABG pO2 (80-100) mmHg ABG HCO3 (19-31) mmol/L ABG O2 Saturation (94.0-98.0) % ABG Base Excess (-2.0-2.0) mmol/L Sodium 127 L (135-145) mmol/L Potassium 3.3 L (3.5-5.0) mmol/L Chloride 83 L (101-111) mmol/L Carbon Dioxide 32 (22-32) mmol/L Anion Gap 12 H (2-11) mmol/L BUN 10 (6-24) mg/dL Creatinine 1.16 (0.67-1.17) mg/dL Est GFR ( Amer) 78.8 (>60) Est GFR (Non-Af Amer) 65.1 (>60) BUN/Creatinine Ratio 8.6 (8-20) Glucose 127 H (70-100) mg/dL Calcium 9.7 (8.6-10.3) mg/dL Total Bilirubin 1.30 H (0.2-1.0) mg/dL AST 19 (13-39) U/L ALT 14 (7-52) U/L Alkaline Phosphatase 74 (34-104) U/L Total Creatine Kinase 70 (10-223) U/L CK-MB (CK-2) 1.5 (0.6-6.3) ng/mL Troponin I 0.01 (<0.04) ng/mL C-Reactive Protein 119.60 H (<8.01) mg/L C-React Prot High Sens Cancelled B-Natriuretic Peptide (<=100) pg/mL Total Protein 8.4 (6.4-8.9) g/dL Albumin 4.4 (3.2-5.2) g/dL Globulin 4.0 (2-4) g/dL Albumin/Globulin Ratio 1.1 (1-3) 01/03/19 01/03/19 01/03/19 Range/Units 14:16 16:20 16:53 WBC (3.5-10.8) 10^3/uL RBC (4.18-5.48) 10^6 /uL Hgb (14.0-18.0) g/dL Hct (42-52) % MCV (80-94) fL MCH (27-31) pg MCHC (31-36) g/dL RDW (10-15) % Plt Count (150-450) 10^3/uL MPV (7.4-10.4) fL Neut % (Auto) % Lymph % (Auto) % Alexander % (Auto) % Eos % (Auto) % Baso % (Auto) % Absolute Neuts (auto) (1.5-7.7) 10^3/ul Absolute Lymphs (auto) (1.0-4.8) 10^3/ul Absolute Monos (auto) (0-0.8) 10^3/ul Absolute Eos (auto) (0-0.6) 10^3/ul Absolute Basos (auto) (0-0.2) 10^3/ul Absolute Nucleated RBC 10^3/ul Nucleated RBC % INR (Anticoag Therapy) (0.82-1.09) ABG pH 7.59 H (7.35-7.45) ABG pCO2 31 L (35-45) mmHg ABG pO2 59 L* (80-100) mmHg ABG HCO3 31.0 (19-31) mmol/L ABG O2 Saturation 94.4 (94.0-98.0) % ABG Base Excess 8.1 H (-2.0-2.0) mmol/L Sodium (135-145) mmol/L Potassium (3.5-5.0) mmol/L Chloride (101-111) mmol/L Carbon Dioxide (22-32) mmol/L Anion Gap (2-11) mmol/L BUN (6-24) mg/dL Creatinine (0.67-1.17) mg/dL Est GFR ( Amer) (>60) Est GFR (Non-Af Amer) (>60) BUN/Creatinine Ratio (8-20) Glucose (70-100) mg/dL Calcium (8.6-10.3) mg/dL Total Bilirubin (0.2-1.0) mg/dL AST (13-39) U/L ALT (7-52) U/L Alkaline Phosphatase (34-104) U/L Total Creatine Kinase (10-223) U/L CK-MB (CK-2) (0.6-6.3) ng/mL Troponin I 0.01 (<0.04) ng/mL C-Reactive Protein (<8.01) mg/L C-React Prot High Sens B-Natriuretic Peptide 144 H (<=100) pg/mL Total Protein (6.4-8.9) g/dL Albumin (3.2-5.2) g/dL Globulin (2-4) g/dL Albumin/Globulin Ratio (1-3) Result Diagrams: 01/03/19 14:16 01/03/19 14:16 Lab Statement: Any lab studies that have been ordered have been reviewed, and results considered in the medical decision making process. Course/Dx - Course Course Of Treatment: Patient complains of SOB 2-3 weeks, subjective fever, FLETCHER 3 days. States symptoms are worse with exertion, not improved with inhaler, progressive. Productive cough with white sputum. Also complains of swelling and redness to scrotum and medial bilateral thighs, burning with urination 3-4 days. Denies sore throat, ear pain, CP, N/V/D, abdominal pain, change in BM. Medical history is chronic EtOH, A. fib, COPD, ILA. Patient on Xarelto. Has inhaler but no nebulizer at home. Blood pressure normal. Afebrile. Heart rate 110-124. Respiratory rate 17-26. 90 -95% on room air. WBC 17. CRP 119. PH 7.59. Potassium 2.3. BNP 144. PO2. ABG 59. Serial troponins negative. EKG sinus rhythm. Chest x-ray unremarkable. Patient did not improve after DuoNeb 3. Admitted to hospitalist for COPD exacerbation. - Diagnoses Provider Diagnoses: COPD exacerbation, Candidiasis of other urogenital sites Discharge - Sign-Out/Discharge Documenting (check all that apply): Patient Departure Patient Received Moderate/Deep Sedation with Procedure: No - Discharge Plan Condition: Stable Disposition: ADMITTED TO [facility] - Billing Disposition and Condition Condition: STABLE Disposition: Admitted to [facility]
[2019-01-03] MEDS ORDERED: Albuterol/Ipratropium NEB.SOL* Albuterol 2.5 MG/Ipratropium 0.5 MG 3 ML INH PRN (19:13)
[2019-01-03] MEDS ORDERED: methylPREDNISolone SOD 40 MG* 1 ML VIAL IV SCH (20:00)
[2019-01-03] MEDS: Enoxaparin(*) 40 MG/0.4 ML SYR SUBCUT SCH (20:41)
[2019-01-03] MEDS: Acetaminophen TAB* 325 MG PO PRN (20:41)
[2019-01-03] MEDS ORDERED: Nystatin CREAM* 15 GM TUBE TOPICAL SCH (21:00)
[2019-01-03] MEDS ORDERED: Pantoprazole TAB * 40 MG TAB PO PRN (21:15)
--- NOTE | 2019-01-03 22:46 | HP ---
CC: Dr. Collier* HISTORY AND PHYSICAL: DATE OF ADMISSION: 01/03/19 PROVIDER: Basilia Caldwell NP PRIMARY CARE PROVIDER: Dr. Collier. ATTENDING PHYSICIAN WHILE IN THE HOSPITAL: Dr. Kiah Durham* (dictated by Basilia Caldwell NP). CHIEF COMPLAINT: Shortness of breath and redness and swelling to scrotum. HISTORY OF PRESENT ILLNESS: Mr. Soto is a 58-year-old male with a past medical history significant for COPD; asthma; history of atrial fibrillation, status post cardioversion in 2014; hypertension; history of oral cancer in 2008 , status post resection, who presented to the emergency room with complaints of progressively worsening shortness of breath x1 week. The patient reports approximately 2 months ago he had an episode of bronchitis. At that time, he took 2 courses of antibiotics and had been feeling better and approximately a month ago, started developing shortness of breath again that has progressively worsened, over the past week has become more severe. He reports being severely dyspneic with exertion. He also reports chills and feeling clammy at home and increased wheezing, increased productive cough with white thick secretions. The patient also reports that he developed a red rash and swelling to his scrotum approximately 3 days ago. He reports that it is also painful. He denies any fever, but reports chills. No unintended weight loss. No chest pain or edema. He does report productive cough with white thick secretions and shortness of breath. Severe dyspnea with exertion. Denies any nausea, vomiting , diarrhea, abdominal pain, hematuria. He does report burning with urination and pain with urination. Denies any visual complaints, dysphagia, arthralgias or myalgias. He does have a rash x3 days to his scrotum, painful and red. Denies any psychosis or anxiety. While in the emergency room, the patient had routine lab work drawn. He was found to have leukocytosis with a white count of 17,000. He had an ultrasound of the scrotum that did not show any torsion or abscess. He had a chest x-ray that did not show any acute disease or COPD. Due to his progressive shortness of breath and redness and erythema noted to his scrotum, Hospital Medicine was asked to see and evaluate for admission. PAST MEDICAL HISTORY: Significant for: 1. COPD. 2. Asthma. 3. Atrial fibrillation with cardioversion in 2014. 4. Hypertension. 5. Oral cancer with resection in 2008. PAST SURGICAL HISTORY: 1. Bilateral hip replacements. 2. Oral cancer, removed in 2008. HOME MEDICATIONS: Include: 1. Prilosec 40 mg p.o. daily. 2. Atenolol 100 mg p.o. daily. 3. Amlodipine 5 mg p.o. daily. 4. Aspirin 81 mg p.o. daily. 5. Gabapentin 1200 mg p.o. b.i.d., 600 at bedtime. 6. Amitriptyline 150 mg at bedtime. 7. Dyazide 37.5/25 one tablet b.i.d. 8. Albuterol nebulizer 2.5/3 mL every 4 hours as needed for shortness of breath or wheezing. ALLERGIES: TYLENOL, CODEINE, OXYCODONE and PROPOXYPHENE. FAMILY HISTORY: Father with an VT at the age of 58, in his 60s. No reported history of diabetes. Cancer, mother with skin cancer, brother with liver cancer. SOCIAL HISTORY: The patient reports that he smokes since the age of 13. He currently smokes 6 cigarettes a day. The patient reports that he was up to smoking 3 packs per day for several years. He does report occasional alcohol use socially. Denies daily alcohol use, denies any illicit drug use. He is on disability. He is single. Surrogate decision maker in the event he is unable to make his own decisions is his mother. He is a full code. REVIEW OF SYSTEMS: A 14-point review of systems was completed. All pertinent positives were mentioned in the HPI otherwise were negative. PHYSICAL EXAMINATION GENERAL: At this time, Mr. Soto is a 58-year-old male. He is alert and oriented, resting on the stretcher in the emergency room. He does have mild respiratory distress and speaking in short sentences. He is able to maintain O2 saturations at 94% on room air. VITAL SIGNS: Blood pressure 142/91, heart rate 95, respirations are 22, temperature was 98.9, O2 saturation was 94%. HEENT: Head is atraumatic, normocephalic. Eyes: EOMs are intact. Sclerae anicteric and not pale. Oral mucosa appeared to be moist. NECK: Supple. LUNGS: Expiratory wheezes throughout bilaterally, diminished in the bases. He does have mild respiratory distress and is speaking in shorter sentences. CARDIAC: S1, S2. Regular rate and rhythm. No murmurs, rubs or gallops. ABDOMEN: Soft and nontender. Bowel sounds are present x4. MUSCULOSKELETAL: He is able to move all 4 extremities. There is no clubbing or cyanosis. NEUROLOGIC: He is awake, alert, oriented x3. Speech is clear. Thought process is intact. There are no gross focal deficits. SKIN: He does have erythema noted to his groin with white patch noted to the scrotum and erythema noted to the bilateral scrotum and yaw area. DIAGNOSTIC STUDIES/LAB DATA: WBCs are 7.0, RBCs 5.42, hemoglobin 17.7, hematocrit is 52, platelet count is 275. INR was 1.11. ABG: pH was 7.59, pO2 was 59, pCO2 was 31.0. ABG: O2 saturation was 94.4. Sodium 127, potassium 3.3 , chloride 83, carbon dioxide was 32, anion gap was 12, BUN was 10, creatinine 1.16, glucose is 127. Total bilirubin was 1.30, ASTs were 19, ALTs were 14, alkaline phosphatase was 74. CK was 70, troponin was 0.01, 0.01, 0.01. C- reactive protein was 119.6. BNP was 144. He had a chest x-ray. Radiologist's impression: Findings consistent with COPD. No evidence of acute disease. He had a testicular ultrasound. Radiologist's impression: No testicular parenchymal mass. No sonographic features of torsion. Scrotal wall edema. He had electrocardiogram, which showed sinus tachycardia at the rate of 115 with PACs. ASSESSMENT AND PLAN: Mr. Soto is a 58-year-old male with a past medical history significant for chronic obstructive pulmonary disease; asthma; atrial fibrillation; hypertension; history of oral cancer, status post resection who presented to the emergency room with progressively worsening shortness of breath ; cough and scrotal redness, swelling and pain. He will be admitted inpatient for: 1. Shortness of breath. I suspect his shortness of breath is related to chronic obstructive pulmonary disease exacerbation, possibly complicated by bronchitis. I will place the patient on azithromycin, ceftriaxone. We will continue Solu-Medrol at 40 mg every [address] him on nebulizers q.4 hours and Dulera twice daily. I will send urine for legionella and Strep pneumoniae and also get blood cultures. As the patient does have leukocytosis and tachycardia, at this time he does meet for SIRS criteria. 2. Scrotal cellulitis. The patient does appear to have yeast/cellulitis on his scrotum and into his groin. I will start him on nystatin cream and cover him with ceftriaxone for the cellulitis. If his symptoms continue to worsen, I did review the case with urology and they will see the patient in the AM. 3. Hypertension. The patient will continue on amlodipine and atenolol as previously prescribed. 4. History of atrial fibrillation. The patient is currently in sinus rhythm. We will continue his atenolol 100 mg p.o. daily and aspirin 81 mg p.o. daily. 5. FEN: The patient can have a heart healthy diet. 6. Code status: He is a full code. 7. DVT prophylaxis: I will place him on Lovenox subcu. 8. Disposition: The patient will be placed on [address] [place] [address] telemetry. TIME SPENT: Time spent on this admission was 60 minutes, greater than half that time was spent at the bedside reviewing the events leading thus far to his hospitalization, performing physical exam, and reviewing my plan of care. I have discussed this with my attending, Dr. Kiah Durham; she is in agreement with my plan. BASILIA CALDWELL, ALINA [id number]/CPS #: [id number] MTDD
[2019-01-03] MEDS: NS 0.9% 1000 ML** 1,000 ML IV SCH (22:59)
[2019-01-03] MEDS: cefTRIAXone(*) 1 GM in NS 0.9% 50 ML* 50 ML IVPB SCH (23:02)
[2019-01-03] MEDS: Mometasone/Formoter 100/5 MDI INH SCH (23:14)
[2019-01-03] MEDS: Gabapentin CAP(*) 300 MG PO SCH (23:40)
[2019-01-03] MEDS: Amitriptyline TAB* 50 MG PO SCH (23:41)
[2019-01-03] MEDS: Azithromycin 500 mg/250 ml NS 500 MG/250 ML BAG IVPB SCH (23:41)
[2019-01-03] MEDS ORDERED: Gabapentin CAP(*) 400 MG PO SCH (23:45)
[2019-01-04] MEDS: methylPREDNISolone SOD 40 MG* 1 ML VIAL IV SCH ×2 (01:39→14:03)
[2019-01-04 05:35] LABS: Urine Appearance Cloudy; Urine Bacteria Absent (Absent); Urine Bilirubin Negative (Negative); Urine Blood Negative (Negative); Urine Color Amber; Urine Glucose Negative (Negative); Urine Ketones Trace (Negative); Urine Nitrite Negative (Negative); Urine Protein 2+(100 mg/dL) (Negative); Urine Red Blood Cell Absent (Absent); Urine Squamous Epithelial Cell Present (Absent); Urine Urobilinogen Negative (Negative); Urine White Blood Cell Absent (Absent)
[2019-01-04 06:30] LABS: ABS Lymphocytes 0.5 10^3/ul (1.0-4.8); ABS Monocytes 0.4 10^3/ul (0-0.8); ABS Neutrophils 12.5 10^3/ul (1.5-7.7); Hematocrit 49 % (42-52); Hemoglobin 16.1 g/dL (14.0-18.0); Lymphocyte % 3.4 %; Mean Corpuscular HGB Conc 33 g/dL (31-36); Mean Corpuscular Hemoglobin 32 pg (27-31); Mean Corpuscular Volume 98 fL (80-94); Mean Platelet Volume 8.4 fL (7.4-10.4); Nucleated Red Blood Cells % 0.1; Platelet Count 183 10^3/uL (150-450); Red Blood Count 4.96 10^6 /uL (4.18-5.48); Red Cell Distribution Width 18 % (10-15); White Blood Count 13.4 10^3/uL (3.5-10.8)
[2019-01-04 06:35] LABS: CO2 Carbon Dioxide 26 mmol/L (22-32); Calcium 8.4 mg/dL (8.6-10.3); Chloride 90 mmol/L (101-111); Sodium 127 mmol/L (135-145)
[2019-01-04 06:41] LABS: BUN/Creatinine Ratio 19.8 (8-20); Blood Urea Nitrogen 23 mg/dL (6-24); EGFR African American 78.8 (>60); EGFR Non-African American 65.1 (>60); Glucose 132 mg/dL (70-100)
[2019-01-04 06:43] LABS: Anion Gap 11 mmol/L (2-11)
[2019-01-04] MEDS: NS 0.9% 1000 ML** 1,000 ML IV SCH ×2 (08:04→17:42)
[2019-01-04] MEDS: Nystatin TOP POWDER* 15 GM BTL TOPICAL SCH ×3 (08:08→20:18)
[2019-01-04] MEDS: Atenolol TAB* 50 MG PO SCH (08:08)
[2019-01-04] MEDS: amLODIPine TAB* 5 MG PO SCH (08:09)
[2019-01-04] MEDS: Aspirin EC TAB* 81 MG TAB.EC PO SCH (08:09)
[2019-01-04] MEDS: Mometasone/Formoter 100/5 MDI INH SCH ×2 (08:22→19:30)
[2019-01-04] MEDS: Gabapentin CAP(*) 400 MG PO SCH ×2 (08:27→14:07)
[2019-01-04] MEDS: Albuterol 2.5 MG/3 ML NEB.SOL* (0.083%) INH PRN (11:53)
[2019-01-04] MEDS ORDERED: Potassium Chlor TAB* 20 MEQ TAB.ER PO ONE (12:08)
--- NOTE | 2019-01-04 12:19 | PN ---
Subjective Date of Service: 01/04/19 Interval History: Pt is feeling better than yesterday but still not great. He states it feels like he improves then he worsens back to square one. He is scared about the whole situation. He states the groin is feeling better but still painful. Objective Active Medications: Acetaminophen (Tylenol Tab*) 650 mg PO Q4H PRN PRN Reason: MILD PAIN or TEMP > 100.4 Last Admin: 01/03/19 20:41 Dose: 650 mg Albuterol (Ventolin 2.5 Mg/3 Ml Neb.Kourtney*) 2.5 mg INH Q2H PRN PRN Reason: sob/wheezing Last Admin: 01/04/19 11:53 Dose: 2.5 mg Albuterol/Ipratropium (Duoneb (Albuterol 2.5 Mg/Ipratropium 0.5 Mg)) 1 neb INH Q4H PRN PRN Reason: sob/wheexing Amitriptyline HCl (Elavil Tab*) 150 mg PO BEDTIME [facility] Last Admin: 01/03/19 23:41 Dose: 150 mg Amlodipine Besylate (Norvasc Tab*) 5 mg PO DAILY [facility] Last Admin: 01/04/19 08:09 Dose: 5 mg Aspirin (Aspirin Ec Tab*) 81 mg PO DAILY [facility] Last Admin: 01/04/19 08:09 Dose: 81 mg Atenolol (Tenormin Tab*) 100 mg PO DAILY [facility] Last Admin: 01/04/19 08:08 Dose: 100 mg Enoxaparin Sodium (Lovenox(*)) 40 mg SUBCUT Q24H [facility] Last Admin: 01/03/19 20:41 Dose: 40 mg Fluconazole (Diflucan 150 Mg Tab*) 150 mg PO DAILY [facility] Gabapentin (Neurontin Cap(*)) 600 mg PO BEDTIME [facility] Last Admin: 01/03/19 23:40 Dose: 600 mg Gabapentin (Neurontin Cap(*)) 1,200 mg PO BID@0900,1500 [facility] Last Admin: 01/04/19 08:27 Dose: 1,200 mg Azithromycin (Zithromax 500 Mg/250 Ml) 500 mg in 250 mls @ 250 mls/hr IVPB Q24H [facility] Last Admin: 01/03/19 23:41 Dose: 250 mls/hr Sodium Chloride (Ns 0.9% 1000 Ml) 1,000 mls @ 125 mls/hr IV PER RATE [facility] Last Admin: 01/04/19 08:04 Dose: 125 mls/hr Ceftriaxone Sodium 1 gm/ (Sodium Chloride) 50 mls @ 100 mls/hr IVPB Q24H [facility] Last Admin: 01/03/19 23:02 Dose: 100 mls/hr Methylprednisolone Sodium Succinate (Solu-Medrol 40 Mg) 40 mg IV Q12H [facility] Last Admin: 01/04/19 01:39 Dose: 40 mg Mometasone Furoate/Formoterol Fumar (Dulera 100/5 Mdi*) 2 puff INH BID [facility] Last Admin: 01/04/19 08:22 Dose: 2 puff Nystatin (Nystatin Top Powder*) 1 applic TOPICAL TID [facility] Last Admin: 01/04/19 08:08 Dose: 1 appful Pantoprazole Sodium (Protonix Tab*) 40 mg PO DAILY PRN PRN Reason: NAUSEA/VOMITING Vital Signs - 8 hr 01/04/19 01/04/19 01/04/19 08:00 08:23 08:27 Pulse Rate 84 Respiratory 17 16 17 Rate O2 Sat by Pulse 94 Oximetry 01/04/19 11:56 Pulse Rate 84 Respiratory 18 Rate O2 Sat by Pulse 94 Oximetry Oxygen Devices in Use Now: None Appearance: Middle aged male sitting up in bed, NAD Eyes: No Scleral Icterus Ears/Nose/Mouth/Throat: Mucous Membranes Moist Respiratory: Symmetrical Chest Expansion and Respiratory Effort, - - breath sounds are tight, there are scattered expiratory wheezes Cardiovascular: NL Sounds; No Murmurs; No JVD, RRR, No Edema Abdominal: NL Sounds; No Tenderness; No Distention Extremities: No Clubbing, Cyanosis Skin: - - + edema of the scrotum and groin B/L Neurological: Alert and Oriented x 3 Result Diagrams: 01/04/19 05:44 01/04/19 07:54 Additional Lab and Data: Lab Results 01/03/19 01/03/19 01/03/19 Range/Units 14:16 14:16 14:16 WBC 17.0 H (3.5-10.8) 10^3/uL RBC 5.42 (4.18-5.48) 10^6 /uL Hgb 17.7 (14.0-18.0) g/dL Hct 52 (42-52) % MCV 95 H (80-94) fL MCH 33 H (27-31) pg MCHC 34 (31-36) g/dL RDW 17 H (10-15) % Plt Count 275 (150-450) 10^3/uL MPV 8.0 (7.4-10.4) fL Neut % (Auto) 84.9 % Lymph % (Auto) 4.9 % [place] % (Auto) 9.3 % Eos % (Auto) 0.5 % Baso % (Auto) 0.4 % Absolute Neuts (auto) 14.4 H (1.5-7.7) 10^3/ul Absolute Lymphs (auto) 0.8 L (1.0-4.8) 10^3/ul Absolute Monos (auto) 1.6 H (0-0.8) 10^3/ul Absolute Eos (auto) 0.1 (0-0.6) 10^3/ul Absolute Basos (auto) 0.1 (0-0.2) 10^3/ul Absolute Nucleated RBC 0.0 10^3/ul Nucleated RBC % 0.0 INR (Anticoag Therapy) 1.11 H (0.82-1.09) ABG pH (7.35-7.45) ABG pCO2 (35-45) mmHg ABG pO2 (80-100) mmHg ABG HCO3 (19-31) mmol/L ABG O2 Saturation (94.0-98.0) % ABG Base Excess (-2.0-2.0) mmol/L Sodium 127 L (135-145) mmol/L Potassium 3.3 L (3.5-5.0) mmol/L Chloride 83 L (101-111) mmol/L Carbon Dioxide 32 (22-32) mmol/L Anion Gap 12 H (2-11) mmol/L BUN 10 (6-24) mg/dL Creatinine 1.16 (0.67-1.17) mg/dL Est GFR ( Amer) 78.8 (>60) Est GFR (Non-Af Amer) 65.1 (>60) BUN/Creatinine Ratio 8.6 (8-20) Glucose 127 H (70-100) mg/dL Calcium 9.7 (8.6-10.3) mg/dL Total Bilirubin 1.30 H (0.2-1.0) mg/dL AST 19 (13-39) U/L ALT 14 (7-52) U/L Alkaline Phosphatase 74 (34-104) U/L Total Creatine Kinase 70 (10-223) U/L CK-MB (CK-2) 1.5 (0.6-6.3) ng/mL Troponin I 0.01 (<0.04) ng/mL C-Reactive Protein 119.60 H (<8.01) mg/L C-React Prot High Sens Cancelled B-Natriuretic Peptide (<=100) pg/mL Total Protein 8.4 (6.4-8.9) g/dL Albumin 4.4 (3.2-5.2) g/dL Globulin 4.0 (2-4) g/dL Albumin/Globulin Ratio 1.1 (1-3) 01/03/19 01/03/19 01/03/19 Range/Units 14:16 16:20 16:53 WBC (3.5-10.8) 10^3/uL RBC (4.18-5.48) 10^6 /uL Hgb (14.0-18.0) g/dL Hct (42-52) % MCV (80-94) fL MCH (27-31) pg MCHC (31-36) g/dL RDW (10-15) % Plt Count (150-450) 10^3/uL MPV (7.4-10.4) fL Neut % (Auto) % Lymph % (Auto) % [place] % (Auto) % Eos % (Auto) % Baso % (Auto) % Absolute Neuts (auto) (1.5-7.7) 10^3/ul Absolute Lymphs (auto) (1.0-4.8) 10^3/ul Absolute Monos (auto) (0-0.8) 10^3/ul Absolute Eos (auto) (0-0.6) 10^3/ul Absolute Basos (auto) (0-0.2) 10^3/ul Absolute Nucleated RBC 10^3/ul Nucleated RBC % INR (Anticoag Therapy) (0.82-1.09) ABG pH 7.59 H (7.35-7.45) ABG pCO2 31 L (35-45) mmHg ABG pO2 59 L* (80-100) mmHg ABG HCO3 31.0 (19-31) mmol/L ABG O2 Saturation 94.4 (94.0-98.0) % ABG Base Excess 8.1 H (-2.0-2.0) mmol/L Sodium (135-145) mmol/L Potassium (3.5-5.0) mmol/L Chloride (101-111) mmol/L Carbon Dioxide (22-32) mmol/L Anion Gap (2-11) mmol/L BUN (6-24) mg/dL Creatinine (0.67-1.17) mg/dL Est GFR ( Amer) (>60) Est GFR (Non-Af Amer) (>60) BUN/Creatinine Ratio (8-20) Glucose (70-100) mg/dL Calcium (8.6-10.3) mg/dL Total Bilirubin (0.2-1.0) mg/dL AST (13-39) U/L ALT (7-52) U/L Alkaline Phosphatase (34-104) U/L Total Creatine Kinase (10-223) U/L CK-MB (CK-2) (0.6-6.3) ng/mL Troponin I 0.01 (<0.04) ng/mL C-Reactive Protein (<8.01) mg/L C-React Prot High Sens B-Natriuretic Peptide 144 H (<=100) pg/mL Total Protein (6.4-8.9) g/dL Albumin (3.2-5.2) g/dL Globulin (2-4) g/dL Albumin/Globulin Ratio (1-3) Microbiology and Other Data: Microbiology 01/04/19 01:49 Legionella Urinary Antigen - Final Urine Negative Legionella Antigen Streptococcus pneumoniae Ag Screen - Final Negative S. pneumo Antigen Assess/Plan/Problems-Billing Mr Soto is a 58 yo M who has a h/o COPD/asthma, HTN and h/o afib who presented to the ER with c/o SOB and scrotal swelling and was admitted for a COPD exacerbation and scrotal and groin cellulitis. - Patient Problems (1) COPD exacerbation Current Visit: Yes Status: Acute Code(s): J44.1 - CHRONIC OBSTRUCTIVE PULMONARY DISEASE W (ACUTE) EXACERBATION SNOMED Code(s): 770069425 Comment: Pt with significant COPD exacerbation. Will change nebs to standing q4hr, continue solumedrol and azithromycin/ceftriaxone. He is still wheezing and not ready for d/c yet. (2) Cellulitis of scrotum Current Visit: Yes Status: Acute Code(s): N49.2 - INFLAMMATORY DISORDERS OF SCROTUM SNOMED Code(s): 78170354 Comment: The patient has cellulitis of the scrotum and groin bilaterally. There is also likely a component of sharron intertrigo. Will continue ceftriaxone as above and add diflucan daily x3 days. Appreciate urology input. No concerns for fourniers gangrene. (3) Hyponatremia Current Visit: Yes Status: Acute Code(s): E87.1 - HYPO-OSMOLALITY AND HYPONATREMIA SNOMED Code(s): 07458900 Comment: Likely related to his use of HCTZ. Continue IVF through today then likely d/c fluids tomorrow. (4) HTN (hypertension) Current Visit: Yes Status: Acute Code(s): I10 - ESSENTIAL (PRIMARY) HYPERTENSION SNOMED Code(s): 58403568 Comment: BP is under good control on atenolol alone. HCTZ held on admission. (5) Tobacco abuse Current Visit: Yes Status: Acute Code(s): Z72.0 - TOBACCO USE SNOMED Code( s): 591821326 Comment: Encourage smoking cessation. (6) DVT prophylaxis Current Visit: Yes Status: Acute Code(s): WSZ4385 - SNOMED Code(s): 648498668 Comment: lovenox (7) Full code status Current Visit: Yes Status: Acute Code(s): Z78.9 - OTHER SPECIFIED HEALTH STATUS SNOMED Code(s): 293065789
--- NOTE | 2019-01-04 12:59 | CONS ---
CONSULTATION NOTE: DATE OF CONSULT: 01/04/19. LOCATION: The patient is on [address] [place] [address]. REASON FOR CONSULT: I was asked by the hospitalist service to see this 58-year- old white male for evaluation of scrotal swelling and rash. HISTORY OF PRESENT ILLNESS: Mr. Soto presented to the emergency room last night with symptoms of exacerbation of his COPD. On evaluation by the admitting provider, there was significant degree of tenderness and edema of the scrotal skin. Because of that finding, the patient had scrotal ultrasound which showed normal testes, thickening of the scrotal skin, but no other abnormalities. In particular, there was no evidence of any gas in the scrotal skin. The patient was admitted for treatment of his COPD and was started on ceftriaxone, Zithromax, and was placed on Diflucan. consultation is obtained for evaluation of the scrotal rash. Upon interviewing the patient, he reported that 3 days ago he started having scrotal redness and swelling. It was involving the whole scrotal wall and it was associated also with some peeling of the skin and hyperemia and skin tenderness. He does not recall having had any injury or any lesions that he noted on the scrotal skin before the onset of his symptoms. No changes in his voiding and no urinary symptoms. PHYSICAL EXAM: On his examination, he is lying comfortably in bed. Exam of the genitalia shows diffuse hyperemia of the scrotal skin. There is only minimal degree of scrotal wall edema. There is some peeling of the skin. Exam of the testes feel normal without any masses. There is also hyperemia extending into both groin areas. The rest of the genitalia feel normal. Rectal examination was not performed because of the scrotal swelling. IMPRESSION: Scrotal wall cellulitis with possible yeast infection. PLAN: Plan is to continue on the same antibiotics he is taking now and to continue on the Diflucan. I expect the condition to resolve on the above treatment. [id number]/[facility] #: [id number] [facility]Ly
[2019-01-04] MEDS: Fluconazole 150 MG TAB PO SCH (14:02)
[2019-01-04] MEDS: Gabapentin CAP(*) 300 MG PO SCH (20:15)
[2019-01-04] MEDS: Amitriptyline TAB* 50 MG PO SCH (20:15)
[2019-01-04] MEDS: Enoxaparin(*) 40 MG/0.4 ML SYR SUBCUT SCH (20:16)
[2019-01-04] MEDS ORDERED: Metoclopramide IV* 5 MG/ML 2 ML VIAL IV PRN (20:28)
[2019-01-04] MEDS: cefTRIAXone(*) 1 GM in NS 0.9% 50 ML* 50 ML IVPB SCH (21:33)
[2019-01-04] MEDS: Azithromycin 500 mg/250 ml NS 500 MG/250 ML BAG IVPB SCH (22:54)
[2019-01-05] MEDS: methylPREDNISolone SOD 40 MG* 1 ML VIAL IV SCH ×3 (01:26→14:05)
[2019-01-05] MEDS: Albuterol 2.5 MG/3 ML NEB.SOL* (0.083%) INH PRN (07:38)
[2019-01-05] MEDS: Mometasone/Formoter 100/5 MDI INH SCH ×2 (07:39→19:12)
[2019-01-05] MEDS: amLODIPine TAB* 5 MG PO SCH (09:09)
[2019-01-05] MEDS: Fluconazole 150 MG TAB PO SCH (09:09)
[2019-01-05] MEDS: Atenolol TAB* 50 MG PO SCH (09:09)
[2019-01-05] MEDS: Aspirin EC TAB* 81 MG TAB.EC PO SCH (09:09)
[2019-01-05] MEDS: Nystatin TOP POWDER* 15 GM BTL TOPICAL SCH (09:10)
[2019-01-05] MEDS: Gabapentin CAP(*) 400 MG PO SCH ×2 (09:14→14:05)
[2019-01-05] MEDS: Acetaminophen TAB* 325 MG PO PRN (09:15)
[2019-01-05 12:10] LABS: BUN/Creatinine Ratio 22.6 (8-20); Calcium 8.6 mg/dL (8.6-10.3); EGFR African American 101.7 (>60); Potassium 3.8 mmol/L (3.5-5.0)
[2019-01-05] MEDS: Albuterol/Ipratropium NEB.SOL* Albuterol 2.5 MG/Ipratropium 0.5 MG 3 ML INH SCH ×4 (12:16→23:14)
--- NOTE | 2019-01-05 17:04 | PN ---
Subjective Date of Service: 01/05/19 Interval History: Pt is still feeling short of breath. Overall much improved from admission but still far from his baseline. He is still wheezing. His scrotum remains quite painful. He states he is having a hard time sleeping at night due to the pain. Objective Active Medications: Acetaminophen (Tylenol Tab*) 650 mg PO Q4H PRN PRN Reason: MILD PAIN or TEMP > 100.4 Last Admin: 01/05/19 09:15 Dose: 650 mg Albuterol (Ventolin 2.5 Mg/3 Ml Neb.Kourtney*) 2.5 mg INH Q2H PRN PRN Reason: sob/wheezing Last Admin: 01/05/19 07:38 Dose: 2.5 mg Albuterol/Ipratropium (Duoneb (Albuterol 2.5 Mg/Ipratropium 0.5 Mg)) 1 neb INH Q4H [facility] Last Admin: 01/05/19 15:41 Dose: 1 neb Amitriptyline HCl (Elavil Tab*) 150 mg PO BEDTIME [facility] Last Admin: 01/04/19 20:15 Dose: 150 mg Amlodipine Besylate (Norvasc Tab*) 5 mg PO DAILY [facility] Last Admin: 01/05/19 09:09 Dose: 5 mg Aspirin (Aspirin Ec Tab*) 81 mg PO DAILY [facility] Last Admin: 01/05/19 09:09 Dose: 81 mg Atenolol (Tenormin Tab*) 100 mg PO DAILY [facility] Last Admin: 01/05/19 09:09 Dose: 100 mg Enoxaparin Sodium (Lovenox(*)) 40 mg SUBCUT Q24H [facility] Last Admin: 01/04/19 20:16 Dose: 40 mg Fluconazole (Diflucan 150 Mg Tab*) 150 mg PO DAILY LOC Last Admin: 01/05/19 09:09 Dose: 150 mg Gabapentin (Neurontin Cap(*)) 600 mg PO BEDTIME LOC Last Admin: 01/04/19 20:15 Dose: 600 mg Gabapentin (Neurontin Cap(*)) 1,200 mg PO BID@0900,1500 [facility] Last Admin: 01/05/19 14:05 Dose: 1,200 mg Azithromycin (Zithromax 500 Mg/250 Ml) 500 mg in 250 mls @ 250 mls/hr IVPB Q24H [facility] Last Admin: 01/04/19 22:54 Dose: 250 mls/hr Ceftriaxone Sodium 1 gm/ (Sodium Chloride) 50 mls @ 100 mls/hr IVPB Q24H [facility] Last Admin: 01/04/19 21:33 Dose: 100 mls/hr Methylprednisolone Sodium Succinate (Solu-Medrol 40 Mg) 40 mg IV Q12H [facility] Last Admin: 01/05/19 14:05 Dose: 40 mg Metoclopramide HCl (Reglan Iv*) 5 mg IV Q6H PRN PRN Reason: NAUSEA/VOMITING Last Admin: 01/04/19 20:51 Dose: 5 mg Mometasone Furoate/Formoterol Fumar (Dulera 100/5 Mdi*) 2 puff INH BID [facility] Last Admin: 01/05/19 07:39 Dose: 2 puff Pantoprazole Sodium (Protonix Tab*) 40 mg PO DAILY PRN PRN Reason: NAUSEA/VOMITING Last Admin: 01/04/19 17:45 Dose: 40 mg Tramadol HCl (Ultram*) 50 mg PO BEDTIME [facility] Vital Signs - 8 hr 01/05/19 01/05/19 01/05/19 09:14 11:00 11:25 Temperature 98.1 F Pulse Rate 78 Respiratory 18 22 16 Rate Blood Pressure 150/77 (mmHg) O2 Sat by Pulse 91 Oximetry 01/05/19 01/05/19 01/05/19 12:19 14:05 15:36 Temperature 97.3 F Pulse Rate 75 79 Respiratory 18 14 24 Rate Blood Pressure 129/71 (mmHg) O2 Sat by Pulse 95 Oximetry 01/05/19 15:44 Temperature Pulse Rate 74 Respiratory 18 Rate Blood Pressure (mmHg) O2 Sat by Pulse 90 Oximetry Oxygen Devices in Use Now: None Appearance: Middle aged male sitting up in bed, NAD Eyes: No Scleral Icterus Ears/Nose/Mouth/Throat: Mucous Membranes Moist Respiratory: Symmetrical Chest Expansion and Respiratory Effort, - - diffusely wheezy, breath sounds are diminshed throughout Cardiovascular: NL Sounds; No Murmurs; No JVD, RRR, No Edema Abdominal: NL Sounds; No Tenderness; No Distention Extremities: - Skin: - - still quite erythematous scrotum and groin bilaterally, there are "raw " areas seen on the scrotum Neurological: Alert and Oriented x 3 Result Diagrams: 01/04/19 05:44 01/05/19 11:43 Additional Lab and Data: Lab Results 01/03/19 01/03/19 01/03/19 Range/Units 14:16 14:16 14:16 WBC 17.0 H (3.5-10.8) 10^3/uL RBC 5.42 (4.18-5.48) 10^6 /uL Hgb 17.7 (14.0-18.0) g/dL Hct 52 (42-52) % MCV 95 H (80-94) fL MCH 33 H (27-31) pg MCHC 34 (31-36) g/dL RDW 17 H (10-15) % Plt Count 275 (150-450) 10^3/uL MPV 8.0 (7.4-10.4) fL Neut % (Auto) 84.9 % Lymph % (Auto) 4.9 % [place] % (Auto) 9.3 % Eos % (Auto) 0.5 % Baso % (Auto) 0.4 % Absolute Neuts (auto) 14.4 H (1.5-7.7) 10^3/ul Absolute Lymphs (auto) 0.8 L (1.0-4.8) 10^3/ul Absolute Monos (auto) 1.6 H (0-0.8) 10^3/ul Absolute Eos (auto) 0.1 (0-0.6) 10^3/ul Absolute Basos (auto) 0.1 (0-0.2) 10^3/ul Absolute Nucleated RBC 0.0 10^3/ul Nucleated RBC % 0.0 INR (Anticoag Therapy) 1.11 H (0.82-1.09) ABG pH (7.35-7.45) ABG pCO2 (35-45) mmHg ABG pO2 (80-100) mmHg ABG HCO3 (19-31) mmol/L ABG O2 Saturation (94.0-98.0) % ABG Base Excess (-2.0-2.0) mmol/L Sodium 127 L (135-145) mmol/L Potassium 3.3 L (3.5-5.0) mmol/L Chloride 83 L (101-111) mmol/L Carbon Dioxide 32 (22-32) mmol/L Anion Gap 12 H (2-11) mmol/L BUN 10 (6-24) mg/dL Creatinine 1.16 (0.67-1.17) mg/dL Est GFR ( Amer) 78.8 (>60) Est GFR (Non-Af Amer) 65.1 (>60) BUN/Creatinine Ratio 8.6 (8-20) Glucose 127 H (70-100) mg/dL Calcium 9.7 (8.6-10.3) mg/dL Total Bilirubin 1.30 H (0.2-1.0) mg/dL AST 19 (13-39) U/L ALT 14 (7-52) U/L Alkaline Phosphatase 74 (34-104) U/L Total Creatine Kinase 70 (10-223) U/L CK-MB (CK-2) 1.5 (0.6-6.3) ng/mL Troponin I 0.01 (<0.04) ng/mL C-Reactive Protein 119.60 H (<8.01) mg/L C-React Prot High Sens Cancelled B-Natriuretic Peptide (<=100) pg/mL Total Protein 8.4 (6.4-8.9) g/dL Albumin 4.4 (3.2-5.2) g/dL Globulin 4.0 (2-4) g/dL Albumin/Globulin Ratio 1.1 (1-3) 01/03/19 01/03/19 01/03/19 Range/Units 14:16 16:20 16:53 WBC (3.5-10.8) 10^3/uL RBC (4.18-5.48) 10^6 /uL Hgb (14.0-18.0) g/dL Hct (42-52) % MCV (80-94) fL MCH (27-31) pg MCHC (31-36) g/dL RDW (10-15) % Plt Count (150-450) 10^3/uL MPV (7.4-10.4) fL Neut % (Auto) % Lymph % (Auto) % [place] % (Auto) % Eos % (Auto) % Baso % (Auto) % Absolute Neuts (auto) (1.5-7.7) 10^3/ul Absolute Lymphs (auto) (1.0-4.8) 10^3/ul Absolute Monos (auto) (0-0.8) 10^3/ul Absolute Eos (auto) (0-0.6) 10^3/ul Absolute Basos (auto) (0-0.2) 10^3/ul Absolute Nucleated RBC 10^3/ul Nucleated RBC % INR (Anticoag Therapy) (0.82-1.09) ABG pH 7.59 H (7.35-7.45) ABG pCO2 31 L (35-45) mmHg ABG pO2 59 L* (80-100) mmHg ABG HCO3 31.0 (19-31) mmol/L ABG O2 Saturation 94.4 (94.0-98.0) % ABG Base Excess 8.1 H (-2.0-2.0) mmol/L Sodium (135-145) mmol/L Potassium (3.5-5.0) mmol/L Chloride (101-111) mmol/L Carbon Dioxide (22-32) mmol/L Anion Gap (2-11) mmol/L BUN (6-24) mg/dL Creatinine (0.67-1.17) mg/dL Est GFR ( Amer) (>60) Est GFR (Non-Af Amer) (>60) BUN/Creatinine Ratio (8-20) Glucose (70-100) mg/dL Calcium (8.6-10.3) mg/dL Total Bilirubin (0.2-1.0) mg/dL AST (13-39) U/L ALT (7-52) U/L Alkaline Phosphatase (34-104) U/L Total Creatine Kinase (10-223) U/L CK-MB (CK-2) (0.6-6.3) ng/mL Troponin I 0.01 (<0.04) ng/mL C-Reactive Protein (<8.01) mg/L C-React Prot High Sens B-Natriuretic Peptide 144 H (<=100) pg/mL Total Protein (6.4-8.9) g/dL Albumin (3.2-5.2) g/dL Globulin (2-4) g/dL Albumin/Globulin Ratio (1-3) Microbiology and Other Data: Microbiology 01/04/19 01:49 Legionella Urinary Antigen - Final Urine Negative Legionella Antigen Streptococcus pneumoniae Ag Screen - Final Negative S. pneumo Antigen Assess/Plan/Problems-Billing Mr Soto is a 58 yo M who has a h/o COPD/asthma, HTN and h/o afib who presented to the ER with c/o SOB and scrotal swelling and was admitted for a COPD exacerbation and scrotal and groin cellulitis. - Patient Problems (1) COPD exacerbation Current Visit: Yes Status: Acute Code(s): J44.1 - CHRONIC OBSTRUCTIVE PULMONARY DISEASE W (ACUTE) EXACERBATION SNOMED Code(s): 513668128 Comment: Pt with significant COPD exacerbation. Continue standing nebs, solumedrol, ceftriaxone and azithromycin. He is not ready for d/c home yet. He has not been up and ambulating yet. (2) Cellulitis of scrotum Current Visit: Yes Status: Acute Code(s): N49.2 - INFLAMMATORY DISORDERS OF SCROTUM SNOMED Code(s): 91570417 Comment: The patient has cellulitis and sharron intertrigo of the scrotum and groin bilaterally. Will continue ceftriaxone as above and diflucan daily x2 more days. Minimal improvement today. Continue to follow closely. (3) Hyponatremia Current Visit: Yes Status: Acute Code(s): E87.1 - HYPO-OSMOLALITY AND HYPONATREMIA SNOMED Code(s): 71905117 Comment: Labs to be rechecked tomorrow. (4) HTN (hypertension) Current Visit: Yes Status: Acute Code(s): I10 - ESSENTIAL (PRIMARY) HYPERTENSION SNOMED Code(s): 48521010 Comment: BP is under good control on atenolol alone. HCTZ held on admission. (5) Tobacco abuse Current Visit: Yes Status: Acute Code(s): Z72.0 - TOBACCO USE SNOMED Code( s): 280649477 Comment: Encourage smoking cessation. (6) DVT prophylaxis Current Visit: Yes Status: Acute Code(s): EAN5658 - SNOMED Code(s): 175968370 Comment: lovenox (7) Full code status Current Visit: Yes Status: Acute Code(s): Z78.9 - OTHER SPECIFIED HEALTH STATUS SNOMED Code(s): 125866716
[2019-01-05] MEDS: traMADol TAB* 50 MG PO PRN (17:52)
[2019-01-05] MEDS: Enoxaparin(*) 40 MG/0.4 ML SYR SUBCUT SCH (20:22)
[2019-01-05] MEDS: Amitriptyline TAB* 50 MG PO SCH (20:23)
[2019-01-05] MEDS: traMADol TAB* 50 MG PO SCH (20:23)
[2019-01-05] MEDS: Gabapentin CAP(*) 300 MG PO SCH (20:24)
[2019-01-05] MEDS: Nystatin CREAM* 15 GM TUBE TOPICAL SCH ×2 (20:29→23:50)
[2019-01-05] MEDS: cefTRIAXone(*) 1 GM in NS 0.9% 50 ML* 50 ML IVPB SCH (21:29)
[2019-01-05] MEDS: Azithromycin 500 mg/250 ml NS 500 MG/250 ML BAG IVPB SCH (22:37)
[2019-01-06] MEDS: methylPREDNISolone SOD 40 MG* 1 ML VIAL IV SCH (02:45)
[2019-01-06] MEDS: Albuterol/Ipratropium NEB.SOL* Albuterol 2.5 MG/Ipratropium 0.5 MG 3 ML INH SCH ×3 (03:52→12:13)
[2019-01-06 05:52] LABS: Hematocrit 44 % (42-52); Hemoglobin 14.3 g/dL (14.0-18.0); Mean Corpuscular HGB Conc 33 g/dL (31-36); Mean Corpuscular Hemoglobin 32 pg (27-31); Mean Corpuscular Volume 99 fL (80-94); Mean Platelet Volume 8.2 fL (7.4-10.4); Platelet Count 219 10^3/uL (150-450); Red Blood Count 4.45 10^6 /uL (4.18-5.48); Red Cell Distribution Width 18 % (10-15); White Blood Count 16.5 10^3/uL (3.5-10.8)
[2019-01-06 06:10] LABS: BUN/Creatinine Ratio 22.8 (8-20); EGFR Non-African American 85.1 (>60); Potassium 3.5 mmol/L (3.5-5.0)
[2019-01-06] MEDS: Mometasone/Formoter 100/5 MDI INH SCH ×2 (07:35→19:27)
[2019-01-06] MEDS: traMADol TAB* 50 MG PO PRN (09:19)
[2019-01-06] MEDS: Atenolol TAB* 50 MG PO SCH (09:20)
[2019-01-06] MEDS: amLODIPine TAB* 5 MG PO SCH (09:21)
[2019-01-06] MEDS: Fluconazole 150 MG TAB PO SCH (09:22)
[2019-01-06] MEDS: Aspirin EC TAB* 81 MG TAB.EC PO SCH (09:22)
[2019-01-06] MEDS: Gabapentin CAP(*) 400 MG PO SCH ×2 (09:26→15:32)
[2019-01-06] MEDS: Nystatin CREAM* 15 GM TUBE TOPICAL SCH ×2 (09:52→15:19)
[2019-01-06] MEDS ORDERED: Potassium Chlor TAB* 20 MEQ TAB.ER PO ONE (09:55)
--- NOTE | 2019-01-06 14:48 | PN ---
Subjective Date of Service: 01/06/19 Interval History: No significant overnight events. Pt reports improvement on TAVERAS, but still significant. Now he can walk 40-50 feet before having to catch his breath. His scrotal pain is improving but also still significant. Denies worsening of symptoms. Denies dysuria, fevers, CP, abd pain. Objective Active Medications: Acetaminophen (Tylenol Tab*) 975 mg PO Q8H PRN PRN Reason: MILD PAIN or TEMP > 100.4 Albuterol (Ventolin 2.5 Mg/3 Ml Neb.Kourtney*) 2.5 mg INH Q2H PRN PRN Reason: sob/wheezing Last Admin: 01/05/19 07:38 Dose: 2.5 mg Amitriptyline HCl (Elavil Tab*) 150 mg PO BEDTIME [facility] Last Admin: 01/05/19 20:23 Dose: 150 mg Amlodipine Besylate (Norvasc Tab*) 5 mg PO DAILY [facility] Last Admin: 01/06/19 09:21 Dose: 5 mg Aspirin (Aspirin Ec Tab*) 81 mg PO DAILY [facility] Last Admin: 01/06/19 09:22 Dose: 81 mg Atenolol (Tenormin Tab*) 100 mg PO DAILY [facility] Last Admin: 01/06/19 09:20 Dose: 100 mg Enoxaparin Sodium (Lovenox(*)) 40 mg SUBCUT Q24H [facility] Last Admin: 01/05/19 20:22 Dose: 40 mg Famotidine (Pepcid Tab*) 20 mg PO BID PRN PRN Reason: reflux Fluconazole (Diflucan 150 Mg Tab*) 150 mg PO DAILY [facility] Last Admin: 01/06/19 09:22 Dose: 150 mg Gabapentin (Neurontin Cap(*)) 600 mg PO BEDTIME [facility] Last Admin: 01/05/19 20:24 Dose: 600 mg Gabapentin (Neurontin Cap(*)) 1,200 mg PO BID@0900,1500 [facility] Last Admin: 01/06/19 15:32 Dose: 1,200 mg Ceftriaxone Sodium 1 gm/ (Sodium Chloride) 50 mls @ 100 mls/hr IVPB Q24H [facility] Last Admin: 01/05/19 21:29 Dose: 100 mls/hr Magnesium Sulfate (Magnesium Sulf 4 Gm/100 Ml Iv*) 4,000 mg in 100 mls @ 33.333 mls/hr IVPB ONCE ONE Stop: 01/06/19 18:27 Mometasone Furoate/Formoterol Fumar (Dulera 100/5 Mdi*) 2 puff INH BID [facility] Last Admin: 01/06/19 07:35 Dose: 2 puff Prednisone (Deltasone Tab*) 40 mg PO DAILY [facility] Stop: 01/09/19 09:01 Tramadol HCl (Ultram*) 50 mg PO BEDTIME [facility] Last Admin: 01/05/19 20:23 Dose: 50 mg Tramadol HCl (Ultram*) 50 mg PO Q6H PRN PRN Reason: PAIN - MODERATE Last Admin: 01/06/19 09:19 Dose: 50 mg Vital Signs - 8 hr 01/06/19 01/06/19 01/06/19 07:11 07:44 07:46 Temperature 97.3 F Pulse Rate 91 82 79 Respiratory 20 16 16 Rate Blood Pressure 135/58 (mmHg) O2 Sat by Pulse 91 98 98 Oximetry 01/06/19 01/06/19 01/06/19 08:00 09:19 09:26 Temperature Pulse Rate Respiratory 18 18 18 Rate Blood Pressure (mmHg) O2 Sat by Pulse Oximetry 01/06/19 01/06/19 01/06/19 11:00 11:30 12:27 Temperature 97.7 F Pulse Rate 80 80 Respiratory 18 22 16 Rate Blood Pressure 145/76 (mmHg) O2 Sat by Pulse 94 93 Oximetry 01/06/19 12:28 Temperature Pulse Rate Respiratory 18 Rate Blood Pressure (mmHg) O2 Sat by Pulse Oximetry Appearance: well appearing, NAD, no increased WOB Eyes: No Scleral Icterus Ears/Nose/Mouth/Throat: Clear Oropharnyx, Mucous Membranes Moist Neck: NL Appearance and Movements; NL JVP Respiratory: - - diffuse expiratory wheeze Cardiovascular: NL Sounds; No Murmurs; No JVD, RRR Abdominal: NL Sounds; No Tenderness; No Distention Extremities: No Edema Skin: - - scrotal erythema with minimal induration, tender to palpation; erythema retreated significantly from inguinal marker lines Neurological: Alert and Oriented x 3 Result Diagrams: 01/06/19 05:03 01/06/19 05:03 Additional Lab and Data: Lab Results 01/03/19 01/03/19 01/03/19 Range/Units 14:16 14:16 14:16 WBC 17.0 H (3.5-10.8) 10^3/uL RBC 5.42 (4.18-5.48) 10^6 /uL Hgb 17.7 (14.0-18.0) g/dL Hct 52 (42-52) % MCV 95 H (80-94) fL MCH 33 H (27-31) pg MCHC 34 (31-36) g/dL RDW 17 H (10-15) % Plt Count 275 (150-450) 10^3/uL MPV 8.0 (7.4-10.4) fL Neut % (Auto) 84.9 % Lymph % (Auto) 4.9 % [place] % (Auto) 9.3 % Eos % (Auto) 0.5 % Baso % (Auto) 0.4 % Absolute Neuts (auto) 14.4 H (1.5-7.7) 10^3/ul Absolute Lymphs (auto) 0.8 L (1.0-4.8) 10^3/ul Absolute Monos (auto) 1.6 H (0-0.8) 10^3/ul Absolute Eos (auto) 0.1 (0-0.6) 10^3/ul Absolute Basos (auto) 0.1 (0-0.2) 10^3/ul Absolute Nucleated RBC 0.0 10^3/ul Nucleated RBC % 0.0 INR (Anticoag Therapy) 1.11 H (0.82-1.09) ABG pH (7.35-7.45) ABG pCO2 (35-45) mmHg ABG pO2 (80-100) mmHg ABG HCO3 (19-31) mmol/L ABG O2 Saturation (94.0-98.0) % ABG Base Excess (-2.0-2.0) mmol/L Sodium 127 L (135-145) mmol/L Potassium 3.3 L (3.5-5.0) mmol/L Chloride 83 L (101-111) mmol/L Carbon Dioxide 32 (22-32) mmol/L Anion Gap 12 H (2-11) mmol/L BUN 10 (6-24) mg/dL Creatinine 1.16 (0.67-1.17) mg/dL Est GFR ( Amer) 78.8 (>60) Est GFR (Non-Af Amer) 65.1 (>60) BUN/Creatinine Ratio 8.6 (8-20) Glucose 127 H (70-100) mg/dL Calcium 9.7 (8.6-10.3) mg/dL Total Bilirubin 1.30 H (0.2-1.0) mg/dL AST 19 (13-39) U/L ALT 14 (7-52) U/L Alkaline Phosphatase 74 (34-104) U/L Total Creatine Kinase 70 (10-223) U/L CK-MB (CK-2) 1.5 (0.6-6.3) ng/mL Troponin I 0.01 (<0.04) ng/mL C-Reactive Protein 119.60 H (<8.01) mg/L C-React Prot High Sens Cancelled B-Natriuretic Peptide (<=100) pg/mL Total Protein 8.4 (6.4-8.9) g/dL Albumin 4.4 (3.2-5.2) g/dL Globulin 4.0 (2-4) g/dL Albumin/Globulin Ratio 1.1 (1-3) 01/03/19 01/03/19 01/03/19 Range/Units 14:16 16:20 16:53 WBC (3.5-10.8) 10^3/uL RBC (4.18-5.48) 10^6 /uL Hgb (14.0-18.0) g/dL Hct (42-52) % MCV (80-94) fL MCH (27-31) pg MCHC (31-36) g/dL RDW (10-15) % Plt Count (150-450) 10^3/uL MPV (7.4-10.4) fL Neut % (Auto) % Lymph % (Auto) % [place] % (Auto) % Eos % (Auto) % Baso % (Auto) % Absolute Neuts (auto) (1.5-7.7) 10^3/ul Absolute Lymphs (auto) (1.0-4.8) 10^3/ul Absolute Monos (auto) (0-0.8) 10^3/ul Absolute Eos (auto) (0-0.6) 10^3/ul Absolute Basos (auto) (0-0.2) 10^3/ul Absolute Nucleated RBC 10^3/ul Nucleated RBC % INR (Anticoag Therapy) (0.82-1.09) ABG pH 7.59 H (7.35-7.45) ABG pCO2 31 L (35-45) mmHg ABG pO2 59 L* (80-100) mmHg ABG HCO3 31.0 (19-31) mmol/L ABG O2 Saturation 94.4 (94.0-98.0) % ABG Base Excess 8.1 H (-2.0-2.0) mmol/L Sodium (135-145) mmol/L Potassium (3.5-5.0) mmol/L Chloride (101-111) mmol/L Carbon Dioxide (22-32) mmol/L Anion Gap (2-11) mmol/L BUN (6-24) mg/dL Creatinine (0.67-1.17) mg/dL Est GFR ( Amer) (>60) Est GFR (Non-Af Amer) (>60) BUN/Creatinine Ratio (8-20) Glucose (70-100) mg/dL Calcium (8.6-10.3) mg/dL Total Bilirubin (0.2-1.0) mg/dL AST (13-39) U/L ALT (7-52) U/L Alkaline Phosphatase (34-104) U/L Total Creatine Kinase (10-223) U/L CK-MB (CK-2) (0.6-6.3) ng/mL Troponin I 0.01 (<0.04) ng/mL C-Reactive Protein (<8.01) mg/L C-React Prot High Sens B-Natriuretic Peptide 144 H (<=100) pg/mL Total Protein (6.4-8.9) g/dL Albumin (3.2-5.2) g/dL Globulin (2-4) g/dL Albumin/Globulin Ratio (1-3) Microbiology and Other Data: Microbiology 01/04/19 01:49 Legionella Urinary Antigen - Final Urine Negative Legionella Antigen Streptococcus pneumoniae Ag Screen - Final Negative S. pneumo Antigen Assess/Plan/Problems-Billing 58M with COPD/asthma with active tobacco use, HTN and h/o afib, who presented with SOB and scrotal swelling, and was admitted for a COPD exacerbation and scrotal and groin cellulitis. - Patient Problems (1) COPD exacerbation Comment: Very low concern for bacterial PNA - pt reports continued smoking and possibly a recent URI. - cont steroids - switch to oral pred - continue nebs prn - on CTX for cellulitis (2) Cellulitis of scrotum Comment: Cellulitis and sharron intertrigo of the scrotum and groin bilaterally. Seen by uro who recommends to continue current abx. - cont CTX (01/03 - ), fluconazole (01/04 - ) (3) HTN (hypertension) Current Visit: Yes Status: Acute Code(s): I10 - ESSENTIAL (PRIMARY) HYPERTENSION SNOMED Code(s): 26410065 Comment: Holding home HCTZ given profound electrolyte abnormalities. - cont home atenolol and amlodipine (4) Hyponatremia Comment: Resolved. Likely from HCTZ. (5) Tobacco abuse Comment: Encourage smoking cessation. (6) DVT prophylaxis Comment: lovenox (7) Full code status Current Visit: Yes Status: Acute Code(s): Z78.9 - OTHER SPECIFIED HEALTH STATUS SNOMED Code(s): 340988042
[2019-01-06] MEDS ORDERED: Magnesium Sulf 4 GM/100 ML IV* 4,000 MG/100 ML BAG IVPB ONE (15:28)
[2019-01-06] MEDS: Acetaminophen TAB* 325 MG PO PRN (17:28)
[2019-01-06] MEDS: Albuterol 2.5 MG/3 ML NEB.SOL* (0.083%) INH PRN (19:26)
[2019-01-06] MEDS: traMADol TAB* 50 MG PO SCH (19:59)
[2019-01-06] MEDS: Gabapentin CAP(*) 300 MG PO SCH (19:59)
[2019-01-06] MEDS: Enoxaparin(*) 40 MG/0.4 ML SYR SUBCUT SCH (19:59)
[2019-01-06] MEDS: Amitriptyline TAB* 50 MG PO SCH (20:00)
[2019-01-06] MEDS: cefTRIAXone(*) 1 GM in NS 0.9% 50 ML* 50 ML IVPB SCH (22:14)
[2019-01-07] MEDS: traMADol TAB* 50 MG PO PRN ×2 (05:47→14:58)
[2019-01-07 07:15] LABS: Hematocrit 44 % (42-52); Hemoglobin 14.7 g/dL (14.0-18.0); Mean Corpuscular HGB Conc 34 g/dL (31-36); Mean Corpuscular Hemoglobin 33 pg (27-31); Mean Corpuscular Volume 98 fL (80-94); Mean Platelet Volume 7.8 fL (7.4-10.4); Platelet Count 203 10^3/uL (150-450); Red Blood Count 4.47 10^6 /uL (4.18-5.48); Red Cell Distribution Width 18 % (10-15); White Blood Count 12.2 10^3/uL (3.5-10.8)
[2019-01-07 07:27] LABS: Calcium 7.8 mg/dL (8.6-10.3); Magnesium 1.5 mg/dL (1.9-2.7); Potassium 3.6 mmol/L (3.5-5.0)
[2019-01-07 07:33] LABS: C Reactive Protein 8.45 mg/L (<8.01); EGFR African American 105.6 (>60); EGFR Non-African American 87.3 (>60)
[2019-01-07] MEDS: Mometasone/Formoter 100/5 MDI INH SCH ×2 (07:34→20:04)
[2019-01-07] MEDS: Albuterol 2.5 MG/3 ML NEB.SOL* (0.083%) INH PRN ×3 (08:05→20:03)
[2019-01-07] MEDS ORDERED: Magnesium Sulf 4 GM/100 ML IV* 4,000 MG/100 ML BAG IVPB ONE (08:29)
[2019-01-07] MEDS ORDERED: Potassium Chlor TAB* 20 MEQ TAB.ER PO ONE (08:29)
--- NOTE | 2019-01-07 08:34 | PN ---
Subjective Date of Service: 01/07/19 Interval History: No significant overnight events. Still requiring significant magnesium repletion. CRP decreased to near-normal. Will switch to PO abx today. Pt very motivated to walk. SOB and scrotal pain with some improvement. Objective Active Medications: Acetaminophen (Tylenol Tab*) 975 mg PO Q8H PRN PRN Reason: MILD PAIN or TEMP > 100.4 Last Admin: 01/06/19 17:28 Dose: 975 mg Albuterol (Ventolin 2.5 Mg/3 Ml Neb.Kourtney*) 2.5 mg INH Q2H PRN PRN Reason: sob/wheezing Last Admin: 01/07/19 08:05 Dose: 2.5 mg Amitriptyline HCl (Elavil Tab*) 150 mg PO BEDTIME [facility] Last Admin: 01/06/19 20:00 Dose: 150 mg Amlodipine Besylate (Norvasc Tab*) 5 mg PO DAILY [facility] Last Admin: 01/06/19 09:21 Dose: 5 mg Aspirin (Aspirin Ec Tab*) 81 mg PO DAILY [facility] Last Admin: 01/06/19 09:22 Dose: 81 mg Atenolol (Tenormin Tab*) 100 mg PO DAILY [facility] Last Admin: 01/06/19 09:20 Dose: 100 mg Enoxaparin Sodium (Lovenox(*)) 40 mg SUBCUT Q24H [facility] Last Admin: 01/06/19 19:59 Dose: 40 mg Famotidine (Pepcid Tab*) 20 mg PO BID PRN PRN Reason: reflux Fluconazole (Diflucan 150 Mg Tab*) 150 mg PO DAILY [facility] Last Admin: 01/06/19 09:22 Dose: 150 mg Gabapentin (Neurontin Cap(*)) 600 mg PO BEDTIME [facility] Last Admin: 01/06/19 19:59 Dose: 600 mg Gabapentin (Neurontin Cap(*)) 1,200 mg PO BID@0900,1500 [facility] Last Admin: 01/06/19 15:32 Dose: 1,200 mg Ceftriaxone Sodium 1 gm/ (Sodium Chloride) 50 mls @ 100 mls/hr IVPB Q24H [facility] Last Admin: 01/06/19 22:14 Dose: 100 mls/hr Magnesium Sulfate (Magnesium Sulf 4 Gm/100 Ml Iv*) 4,000 mg in 100 mls @ 33.333 mls/hr IVPB ONCE ONE Stop: 01/07/19 11:28 Mometasone Furoate/Formoterol Fumar (Dulera 100/5 Mdi*) 2 puff INH BID [facility] Last Admin: 01/07/19 07:34 Dose: 2 puff Potassium Chloride (Klor Con Er Tab*) 20 meq PO ONCE ONE Stop: 01/07/19 08:30 Prednisone (Deltasone Tab*) 40 mg PO DAILY [facility] Stop: 01/09/19 09:01 Tramadol HCl (Ultram*) 50 mg PO BEDTIME [facility] Last Admin: 01/06/19 19:59 Dose: 50 mg Tramadol HCl (Ultram*) 50 mg PO Q6H PRN PRN Reason: PAIN - MODERATE Last Admin: 01/07/19 05:47 Dose: 50 mg Vital Signs - 8 hr 01/07/19 01/07/19 01/07/19 03:11 05:10 05:47 Temperature 97.6 F Pulse Rate 72 Respiratory 16 20 Rate Blood Pressure 138/78 (mmHg) O2 Sat by Pulse 94 94 Oximetry 01/07/19 01/07/19 07:35 08:06 Temperature Pulse Rate 78 74 Respiratory 14 14 Rate Blood Pressure (mmHg) O2 Sat by Pulse 92 92 Oximetry Oxygen Devices in Use Now: None Appearance: well appearing man in NAD, no increased WOB Eyes: No Scleral Icterus Ears/Nose/Mouth/Throat: Clear Oropharnyx, Mucous Membranes Moist Neck: NL Appearance and Movements; NL JVP Respiratory: - - mild expiratory wheeze diffusely Cardiovascular: NL Sounds; No Murmurs; No JVD, RRR Abdominal: NL Sounds; No Tenderness; No Distention - protuberant, No Hepatosplenomegaly Extremities: - - 1+pitting edema long term up shins Skin: - - erythema nearly resolved from groin b/l, stll with erythema over scrotum diffusely but without induration; area of skin breakdown anteriorly is healing without pus Result Diagrams: 01/07/19 06:33 01/07/19 06:34 Additional Lab and Data: Lab Results 01/03/19 01/03/19 01/03/19 Range/Units 14:16 14:16 14:16 WBC 17.0 H (3.5-10.8) 10^3/uL RBC 5.42 (4.18-5.48) 10^6 /uL Hgb 17.7 (14.0-18.0) g/dL Hct 52 (42-52) % MCV 95 H (80-94) fL MCH 33 H (27-31) pg MCHC 34 (31-36) g/dL RDW 17 H (10-15) % Plt Count 275 (150-450) 10^3/uL MPV 8.0 (7.4-10.4) fL Neut % (Auto) 84.9 % Lymph % (Auto) 4.9 % [place] % (Auto) 9.3 % Eos % (Auto) 0.5 % Baso % (Auto) 0.4 % Absolute Neuts (auto) 14.4 H (1.5-7.7) 10^3/ul Absolute Lymphs (auto) 0.8 L (1.0-4.8) 10^3/ul Absolute Monos (auto) 1.6 H (0-0.8) 10^3/ul Absolute Eos (auto) 0.1 (0-0.6) 10^3/ul Absolute Basos (auto) 0.1 (0-0.2) 10^3/ul Absolute Nucleated RBC 0.0 10^3/ul Nucleated RBC % 0.0 INR (Anticoag Therapy) 1.11 H (0.82-1.09) ABG pH (7.35-7.45) ABG pCO2 (35-45) mmHg ABG pO2 (80-100) mmHg ABG HCO3 (19-31) mmol/L ABG O2 Saturation (94.0-98.0) % ABG Base Excess (-2.0-2.0) mmol/L Sodium 127 L (135-145) mmol/L Potassium 3.3 L (3.5-5.0) mmol/L Chloride 83 L (101-111) mmol/L Carbon Dioxide 32 (22-32) mmol/L Anion Gap 12 H (2-11) mmol/L BUN 10 (6-24) mg/dL Creatinine 1.16 (0.67-1.17) mg/dL Est GFR ( Amer) 78.8 (>60) Est GFR (Non-Af Amer) 65.1 (>60) BUN/Creatinine Ratio 8.6 (8-20) Glucose 127 H (70-100) mg/dL Calcium 9.7 (8.6-10.3) mg/dL Total Bilirubin 1.30 H (0.2-1.0) mg/dL AST 19 (13-39) U/L ALT 14 (7-52) U/L Alkaline Phosphatase 74 (34-104) U/L Total Creatine Kinase 70 (10-223) U/L CK-MB (CK-2) 1.5 (0.6-6.3) ng/mL Troponin I 0.01 (<0.04) ng/mL C-Reactive Protein 119.60 H (<8.01) mg/L C-React Prot High Sens Cancelled B-Natriuretic Peptide (<=100) pg/mL Total Protein 8.4 (6.4-8.9) g/dL Albumin 4.4 (3.2-5.2) g/dL Globulin 4.0 (2-4) g/dL Albumin/Globulin Ratio 1.1 (1-3) 01/03/19 01/03/19 01/03/19 Range/Units 14:16 16:20 16:53 WBC (3.5-10.8) 10^3/uL RBC (4.18-5.48) 10^6 /uL Hgb (14.0-18.0) g/dL Hct (42-52) % MCV (80-94) fL MCH (27-31) pg MCHC (31-36) g/dL RDW (10-15) % Plt Count (150-450) 10^3/uL MPV (7.4-10.4) fL Neut % (Auto) % Lymph % (Auto) % [place] % (Auto) % Eos % (Auto) % Baso % (Auto) % Absolute Neuts (auto) (1.5-7.7) 10^3/ul Absolute Lymphs (auto) (1.0-4.8) 10^3/ul Absolute Monos (auto) (0-0.8) 10^3/ul Absolute Eos (auto) (0-0.6) 10^3/ul Absolute Basos (auto) (0-0.2) 10^3/ul Absolute Nucleated RBC 10^3/ul Nucleated RBC % INR (Anticoag Therapy) (0.82-1.09) ABG pH 7.59 H (7.35-7.45) ABG pCO2 31 L (35-45) mmHg ABG pO2 59 L* (80-100) mmHg ABG HCO3 31.0 (19-31) mmol/L ABG O2 Saturation 94.4 (94.0-98.0) % ABG Base Excess 8.1 H (-2.0-2.0) mmol/L Sodium (135-145) mmol/L Potassium (3.5-5.0) mmol/L Chloride (101-111) mmol/L Carbon Dioxide (22-32) mmol/L Anion Gap (2-11) mmol/L BUN (6-24) mg/dL Creatinine (0.67-1.17) mg/dL Est GFR ( Amer) (>60) Est GFR (Non-Af Amer) (>60) BUN/Creatinine Ratio (8-20) Glucose (70-100) mg/dL Calcium (8.6-10.3) mg/dL Total Bilirubin (0.2-1.0) mg/dL AST (13-39) U/L ALT (7-52) U/L Alkaline Phosphatase (34-104) U/L Total Creatine Kinase (10-223) U/L CK-MB (CK-2) (0.6-6.3) ng/mL Troponin I 0.01 (<0.04) ng/mL C-Reactive Protein (<8.01) mg/L C-React Prot High Sens B-Natriuretic Peptide 144 H (<=100) pg/mL Total Protein (6.4-8.9) g/dL Albumin (3.2-5.2) g/dL Globulin (2-4) g/dL Albumin/Globulin Ratio (1-3) Microbiology and Other Data: Microbiology 01/04/19 01:49 Legionella Urinary Antigen - Final Urine Negative Legionella Antigen Streptococcus pneumoniae Ag Screen - Final Negative S. pneumo Antigen Assess/Plan/Problems-Billing 58M with COPD/asthma with active tobacco use, HTN and h/o afib, who presented with SOB and scrotal swelling, and was admitted for a COPD exacerbation and scrotal and groin cellulitis. - Patient Problems (1) COPD exacerbation Comment: Very low concern for bacterial PNA - pt reports continued smoking and possibly a recent URI. On room air. - cont steroid burst - continue nebs prn (2) Cellulitis of scrotum Comment: Cellulitis and sharron intertrigo of the scrotum and groin bilaterally. Seen by uro who recommends to continue abx. - switch IV CTX (01/03 - 01/06) to PO Bactrim (01/07 - ) and monitor response - s/p fluconazole (01/04 - 01/07) - encourage good skin hygeine (3) HTN (hypertension) Current Visit: Yes Status: Acute Code(s): I10 - ESSENTIAL (PRIMARY) HYPERTENSION SNOMED Code(s): 59910564 Comment: Holding home HCTZ given profound electrolyte abnormalities. - cont home atenolol and amlodipine (4) Heart failure with preserved ejection fraction Comment: was previously on HCTZ for BP, but presented with low Na, K, and Mg. Started to experience LE edema off diuretic. - start furosemide 20mg daily and monitor 'lytes (5) Hyponatremia Comment: Resolved. Likely from HCTZ. (6) Tobacco abuse Comment: Encourage smoking cessation. Pt motivated. (7) DVT prophylaxis Comment: lovenox (8) Full code status Current Visit: Yes Status: Acute Code(s): Z78.9 - OTHER SPECIFIED HEALTH STATUS SNOMED Code(s): 156383766
[2019-01-07] MEDS: Aspirin EC TAB* 81 MG TAB.EC PO SCH (09:12)
[2019-01-07] MEDS: predniSONE TAB* 20 MG PO SCH (09:12)
[2019-01-07] MEDS: Atenolol TAB* 50 MG PO SCH (09:12)
[2019-01-07] MEDS: Furosemide TAB* 20 MG PO SCH (09:13)
[2019-01-07] MEDS: Famotidine TAB* 20 MG PO PRN (09:13)
[2019-01-07] MEDS: amLODIPine TAB* 5 MG PO SCH (09:13)
[2019-01-07] MEDS: Gabapentin CAP(*) 400 MG PO SCH ×2 (09:31→14:57)
[2019-01-07] MEDS: Fluconazole 150 MG TAB PO SCH (09:32)
[2019-01-07] MEDS: Enoxaparin(*) 40 MG/0.4 ML SYR SUBCUT SCH (21:55)
[2019-01-07] MEDS: Amitriptyline TAB* 50 MG PO SCH (21:55)
[2019-01-07] MEDS: Sulfamethox/Trimethoprim DS 800/160* TAB PO SCH (21:56)
[2019-01-07] MEDS: traMADol TAB* 50 MG PO SCH (21:56)
[2019-01-07] MEDS: Gabapentin CAP(*) 300 MG PO SCH (21:57)
[2019-01-08] MEDS: Albuterol 2.5 MG/3 ML NEB.SOL* (0.083%) INH PRN ×3 (03:30→23:38)
[2019-01-08 06:52] LABS: BUN/Creatinine Ratio 19.1 (8-20); Calcium 7.8 mg/dL (8.6-10.3); EGFR Non-African American 88.4 (>60); Magnesium 1.4 mg/dL (1.9-2.7); Potassium 3.7 mmol/L (3.5-5.0)
[2019-01-08] MEDS: Mometasone/Formoter 100/5 MDI INH SCH ×2 (07:19→20:42)
[2019-01-08] MEDS ORDERED: Magnesium Sulf 4 GM/100 ML IV* 4,000 MG/100 ML BAG IVPB ONE (08:42)
[2019-01-08] MEDS ORDERED: Potassium Chlor TAB* 20 MEQ TAB.ER PO ONE (08:42)
--- NOTE | 2019-01-08 08:50 | PN ---
Subjective Date of Service: 01/08/19 Interval History: No overnight events. Switched to PO abx yesterday. Still with significant hypomag. Swelling of LE improved but still trace - will increase furosemide dose. Pain in scrotum better. Walking further and more frequently. Objective Active Medications: Acetaminophen (Tylenol Tab*) 975 mg PO Q8H PRN PRN Reason: MILD PAIN or TEMP > 100.4 Last Admin: 01/06/19 17:28 Dose: 975 mg Albuterol (Ventolin 2.5 Mg/3 Ml Neb.Kourtney*) 2.5 mg INH Q2H PRN PRN Reason: sob/wheezing Last Admin: 01/08/19 08:02 Dose: 2.5 mg Amitriptyline HCl (Elavil Tab*) 150 mg PO BEDTIME [facility] Last Admin: 01/07/19 21:55 Dose: 150 mg Amlodipine Besylate (Norvasc Tab*) 5 mg PO DAILY [facility] Last Admin: 01/08/19 08:57 Dose: 5 mg Aspirin (Aspirin Ec Tab*) 81 mg PO DAILY [facility] Last Admin: 01/08/19 08:57 Dose: 81 mg Atenolol (Tenormin Tab*) 100 mg PO DAILY [facility] Last Admin: 01/08/19 08:57 Dose: 100 mg Enoxaparin Sodium (Lovenox(*)) 40 mg SUBCUT Q24H [facility] Last Admin: 01/07/19 21:55 Dose: 40 mg Famotidine (Pepcid Tab*) 20 mg PO BID PRN PRN Reason: reflux Last Admin: 01/08/19 10:28 Dose: 20 mg Furosemide (Lasix Tab*) 40 mg PO DAILY [facility] Gabapentin (Neurontin Cap(*)) 600 mg PO BEDTIME [facility] Last Admin: 01/07/19 21:57 Dose: 600 mg Gabapentin (Neurontin Cap(*)) 1,200 mg PO BID@0900,1500 [facility] Last Admin: 01/08/19 15:16 Dose: 1,200 mg Mometasone Furoate/Formoterol Fumar (Dulera 100/5 Mdi*) 2 puff INH BID [facility] Last Admin: 01/08/19 07:19 Dose: 2 puff Prednisone (Deltasone Tab*) 40 mg PO DAILY [facility] Stop: 01/09/19 09:01 Last Admin: 01/08/19 08:57 Dose: 40 mg Tramadol HCl (Ultram*) 50 mg PO BEDTIME [facility] Last Admin: 01/07/19 21:56 Dose: 50 mg Tramadol HCl (Ultram*) 50 mg PO Q6H PRN PRN Reason: PAIN - MODERATE Last Admin: 01/07/19 14:58 Dose: 50 mg Trimethoprim/Sulfamethoxazole (Bactrim Ds 800/160 Tab*) 1 tab PO BID [facility] Last Admin: 01/08/19 08:57 Dose: 1 tab Vital Signs - 8 hr 01/08/19 01/08/19 01/08/19 03:15 03:38 07:21 Temperature 97.5 F 97.0 F Pulse Rate 86 76 81 Respiratory 18 15 20 Rate Blood Pressure 152/74 140/68 (mmHg) O2 Sat by Pulse 95 92 91 Oximetry 01/08/19 01/08/19 08:00 08:05 Temperature Pulse Rate 90 Respiratory 20 17 Rate Blood Pressure (mmHg) O2 Sat by Pulse 98 Oximetry Oxygen Devices in Use Now: None Appearance: appears more energetic, NAD Ears/Nose/Mouth/Throat: Clear Oropharnyx, Mucous Membranes Moist Neck: NL Appearance and Movements; NL JVP, Trachea Midline Respiratory: - - mild expiratory wheeze, air movement improved Cardiovascular: NL Sounds; No Murmurs; No JVD, RRR Abdominal: NL Sounds; No Tenderness; No Distention, No Hepatosplenomegaly Extremities: - - trace edema over ankles Skin: - - area of skin breakdown anteriorly over scrotum is improving, no pus; erythemia over scrotum diffusely but improving, less tender; R groin and upper thigh with area of superficial ulceration without surrounding erytema or induration Neurological: Alert and Oriented x 3, NL Muscle Strength and Tone Result Diagrams: 01/07/19 06:33 01/08/19 14:06 Additional Lab and Data: Lab Results 01/03/19 01/03/19 01/03/19 Range/Units 14:16 14:16 14:16 WBC 17.0 H (3.5-10.8) 10^3/uL RBC 5.42 (4.18-5.48) 10^6 /uL Hgb 17.7 (14.0-18.0) g/dL Hct 52 (42-52) % MCV 95 H (80-94) fL MCH 33 H (27-31) pg MCHC 34 (31-36) g/dL RDW 17 H (10-15) % Plt Count 275 (150-450) 10^3/uL MPV 8.0 (7.4-10.4) fL Neut % (Auto) 84.9 % Lymph % (Auto) 4.9 % [place] % (Auto) 9.3 % Eos % (Auto) 0.5 % Baso % (Auto) 0.4 % Absolute Neuts (auto) 14.4 H (1.5-7.7) 10^3/ul Absolute Lymphs (auto) 0.8 L (1.0-4.8) 10^3/ul Absolute Monos (auto) 1.6 H (0-0.8) 10^3/ul Absolute Eos (auto) 0.1 (0-0.6) 10^3/ul Absolute Basos (auto) 0.1 (0-0.2) 10^3/ul Absolute Nucleated RBC 0.0 10^3/ul Nucleated RBC % 0.0 INR (Anticoag Therapy) 1.11 H (0.82-1.09) ABG pH (7.35-7.45) ABG pCO2 (35-45) mmHg ABG pO2 (80-100) mmHg ABG HCO3 (19-31) mmol/L ABG O2 Saturation (94.0-98.0) % ABG Base Excess (-2.0-2.0) mmol/L Sodium 127 L (135-145) mmol/L Potassium 3.3 L (3.5-5.0) mmol/L Chloride 83 L (101-111) mmol/L Carbon Dioxide 32 (22-32) mmol/L Anion Gap 12 H (2-11) mmol/L BUN 10 (6-24) mg/dL Creatinine 1.16 (0.67-1.17) mg/dL Est GFR ( Amer) 78.8 (>60) Est GFR (Non-Af Amer) 65.1 (>60) BUN/Creatinine Ratio 8.6 (8-20) Glucose 127 H (70-100) mg/dL Calcium 9.7 (8.6-10.3) mg/dL Total Bilirubin 1.30 H (0.2-1.0) mg/dL AST 19 (13-39) U/L ALT 14 (7-52) U/L Alkaline Phosphatase 74 (34-104) U/L Total Creatine Kinase 70 (10-223) U/L CK-MB (CK-2) 1.5 (0.6-6.3) ng/mL Troponin I 0.01 (<0.04) ng/mL C-Reactive Protein 119.60 H (<8.01) mg/L C-React Prot High Sens Cancelled B-Natriuretic Peptide (<=100) pg/mL Total Protein 8.4 (6.4-8.9) g/dL Albumin 4.4 (3.2-5.2) g/dL Globulin 4.0 (2-4) g/dL Albumin/Globulin Ratio 1.1 (1-3) 01/03/19 01/03/19 01/03/19 Range/Units 14:16 16:20 16:53 WBC (3.5-10.8) 10^3/uL RBC (4.18-5.48) 10^6 /uL Hgb (14.0-18.0) g/dL Hct (42-52) % MCV (80-94) fL MCH (27-31) pg MCHC (31-36) g/dL RDW (10-15) % Plt Count (150-450) 10^3/uL MPV (7.4-10.4) fL Neut % (Auto) % Lymph % (Auto) % [place] % (Auto) % Eos % (Auto) % Baso % (Auto) % Absolute Neuts (auto) (1.5-7.7) 10^3/ul Absolute Lymphs (auto) (1.0-4.8) 10^3/ul Absolute Monos (auto) (0-0.8) 10^3/ul Absolute Eos (auto) (0-0.6) 10^3/ul Absolute Basos (auto) (0-0.2) 10^3/ul Absolute Nucleated RBC 10^3/ul Nucleated RBC % INR (Anticoag Therapy) (0.82-1.09) ABG pH 7.59 H (7.35-7.45) ABG pCO2 31 L (35-45) mmHg ABG pO2 59 L* (80-100) mmHg ABG HCO3 31.0 (19-31) mmol/L ABG O2 Saturation 94.4 (94.0-98.0) % ABG Base Excess 8.1 H (-2.0-2.0) mmol/L Sodium (135-145) mmol/L Potassium (3.5-5.0) mmol/L Chloride (101-111) mmol/L Carbon Dioxide (22-32) mmol/L Anion Gap (2-11) mmol/L BUN (6-24) mg/dL Creatinine (0.67-1.17) mg/dL Est GFR ( Amer) (>60) Est GFR (Non-Af Amer) (>60) BUN/Creatinine Ratio (8-20) Glucose (70-100) mg/dL Calcium (8.6-10.3) mg/dL Total Bilirubin (0.2-1.0) mg/dL AST (13-39) U/L ALT (7-52) U/L Alkaline Phosphatase (34-104) U/L Total Creatine Kinase (10-223) U/L CK-MB (CK-2) (0.6-6.3) ng/mL Troponin I 0.01 (<0.04) ng/mL C-Reactive Protein (<8.01) mg/L C-React Prot High Sens B-Natriuretic Peptide 144 H (<=100) pg/mL Total Protein (6.4-8.9) g/dL Albumin (3.2-5.2) g/dL Globulin (2-4) g/dL Albumin/Globulin Ratio (1-3) Microbiology and Other Data: Microbiology 01/04/19 01:49 Legionella Urinary Antigen - Final Urine Negative Legionella Antigen Streptococcus pneumoniae Ag Screen - Final Negative S. pneumo Antigen Assess/Plan/Problems-Billing 58M with COPD/asthma with active tobacco use, HTN and h/o afib, who presented with SOB and scrotal swelling, and was admitted for a COPD exacerbation and scrotal and groin cellulitis. - Patient Problems (1) COPD exacerbation Comment: Very low concern for bacterial PNA - pt reports continued smoking and possibly a recent URI. On room air. - cont steroid burst - continue nebs prn (2) Cellulitis of scrotum Comment: Cellulitis and sharron intertrigo of the scrotum and groin bilaterally. Seen by uro who recommends to continue abx. - switch IV CTX (01/03 - 01/06) to PO Bactrim (01/07 - ) and monitor response - s/p fluconazole (01/04 - 01/07) - encourage good skin hygeine (3) HTN (hypertension) Current Visit: Yes Status: Acute Code(s): I10 - ESSENTIAL (PRIMARY) HYPERTENSION SNOMED Code(s): 03293898 Comment: Holding home HCTZ given profound electrolyte abnormalities. - cont home atenolol and amlodipine (4) Heart failure with preserved ejection fraction Comment: was previously on HCTZ for BP, but presented with low Na, K, and Mg. Started to experience LE edema off diuretic. - cont furosemide 40mg daily and monitor BMP (5) GERD (gastroesophageal reflux disease) Comment: Stopping PPI given profound hypomagnesmia. - start on H2 dashawn prn (6) Tobacco abuse Comment: Encourage smoking cessation. Pt motivated. (7) Hyponatremia Comment: Resolved. Likely from HCTZ. (8) DVT prophylaxis Comment: lovenox (9) Full code status Current Visit: Yes Status: Acute Code(s): Z78.9 - OTHER SPECIFIED HEALTH STATUS SNOMED Code(s): 933546796
[2019-01-08] MEDS: Atenolol TAB* 50 MG PO SCH (08:57)
[2019-01-08] MEDS: amLODIPine TAB* 5 MG PO SCH (08:57)
[2019-01-08] MEDS: Furosemide TAB* 20 MG PO SCH (08:57)
[2019-01-08] MEDS: predniSONE TAB* 20 MG PO SCH (08:57)
[2019-01-08] MEDS: Sulfamethox/Trimethoprim DS 800/160* TAB PO SCH ×2 (08:57→21:34)
[2019-01-08] MEDS: Aspirin EC TAB* 81 MG TAB.EC PO SCH (08:57)
[2019-01-08] MEDS: Gabapentin CAP(*) 400 MG PO SCH ×2 (09:02→15:16)
[2019-01-08] MEDS: Famotidine TAB* 20 MG PO PRN (10:28)
[2019-01-08] MEDS ORDERED: Furosemide TAB* 20 MG PO ONE (11:06)
[2019-01-08 14:34] LABS: BUN/Creatinine Ratio 15.7 (8-20); Calcium 8.9 mg/dL (8.6-10.3); EGFR African American 91.4 (>60); EGFR Non-African American 75.5 (>60); Magnesium 2.3 mg/dL (1.9-2.7); Potassium 4.6 mmol/L (3.5-5.0)
[2019-01-08] MEDS: Enoxaparin(*) 40 MG/0.4 ML SYR SUBCUT SCH (21:33)
[2019-01-08] MEDS: traMADol TAB* 50 MG PO SCH (21:33)
[2019-01-08] MEDS: Amitriptyline TAB* 50 MG PO SCH (21:33)
[2019-01-08] MEDS: Gabapentin CAP(*) 300 MG PO SCH (21:33)
[2019-01-09 06:44] LABS: BUN/Creatinine Ratio 21.5 (8-20); Calcium 8.4 mg/dL (8.6-10.3); EGFR African American 101.7 (>60); Magnesium 1.4 mg/dL (1.9-2.7)
[2019-01-09] MEDS: Mometasone/Formoter 100/5 MDI INH SCH ×2 (07:14→19:15)
[2019-01-09] MEDS: Albuterol 2.5 MG/3 ML NEB.SOL* (0.083%) INH PRN ×2 (07:17→19:22)
[2019-01-09] MEDS: Aspirin EC TAB* 81 MG TAB.EC PO SCH (08:51)
[2019-01-09] MEDS: Furosemide TAB* 20 MG PO SCH (08:51)
[2019-01-09] MEDS: Atenolol TAB* 50 MG PO SCH (08:51)
[2019-01-09] MEDS: amLODIPine TAB* 5 MG PO SCH (08:51)
[2019-01-09] MEDS: predniSONE TAB* 20 MG PO SCH (08:51)
[2019-01-09] MEDS: Sulfamethox/Trimethoprim DS 800/160* TAB PO SCH ×2 (08:51→21:17)
[2019-01-09] MEDS: Gabapentin CAP(*) 400 MG PO SCH ×2 (08:58→15:56)
[2019-01-09] MEDS ORDERED: Magnesium Sulfate IV* 3 GM in NS 0.9% 100 ML* 100 ML IVPB ONE (11:30)
[2019-01-09] MEDS ORDERED: Furosemide IV* 10 MG/ML VIAL (40 MG) IV ONE ×2 (11:36→15:01)
[2019-01-09] MEDS: Famotidine TAB* 20 MG PO PRN ×2 (11:49→21:17)
[2019-01-09 14:56] LABS: BUN/Creatinine Ratio 16.4 (8-20); EGFR African American 83.8 (>60); EGFR Non-African American 69.2 (>60); Potassium 4.6 mmol/L (3.5-5.0)
--- NOTE | 2019-01-09 17:18 | PN ---
Subjective Date of Service: 01/09/19 Interval History: No significant overnight events. Pt noting significant weight gain in hospital, likely combination of diuretic being held (due to severe hypoK and hypoMg) and steroids. Today is last day on steroids. Patient reports significantly improved TAVERAS. No longer with pain in scrotum, just discomfort. Objective Active Medications: Acetaminophen (Tylenol Tab*) 975 mg PO Q8H PRN PRN Reason: MILD PAIN or TEMP > 100.4 Last Admin: 01/06/19 17:28 Dose: 975 mg Albuterol (Ventolin 2.5 Mg/3 Ml Neb.Kourtney*) 2.5 mg INH Q2H PRN PRN Reason: sob/wheezing Last Admin: 01/09/19 07:17 Dose: 2.5 mg Amitriptyline HCl (Elavil Tab*) 150 mg PO BEDTIME [facility] Last Admin: 01/08/19 21:33 Dose: 150 mg Amlodipine Besylate (Norvasc Tab*) 5 mg PO DAILY [facility] Last Admin: 01/09/19 08:51 Dose: 5 mg Aspirin (Aspirin Ec Tab*) 81 mg PO DAILY [facility] Last Admin: 01/09/19 08:51 Dose: 81 mg Atenolol (Tenormin Tab*) 100 mg PO DAILY [facility] Last Admin: 01/09/19 08:51 Dose: 100 mg Enoxaparin Sodium (Lovenox(*)) 40 mg SUBCUT Q24H [facility] Last Admin: 01/08/19 21:33 Dose: 40 mg Famotidine (Pepcid Tab*) 20 mg PO BID PRN PRN Reason: reflux Last Admin: 01/09/19 11:49 Dose: 20 mg Furosemide (Lasix Tab*) 40 mg PO DAILY [facility] Last Admin: 01/09/19 08:51 Dose: 40 mg Gabapentin (Neurontin Cap(*)) 600 mg PO BEDTIME [facility] Last Admin: 01/08/19 21:33 Dose: 600 mg Gabapentin (Neurontin Cap(*)) 1,200 mg PO BID@0900,1500 [facility] Last Admin: 01/09/19 15:56 Dose: 1,200 mg Mometasone Furoate/Formoterol Fumar (Dulera 100/5 Mdi*) 2 puff INH BID [facility] Last Admin: 01/09/19 07:14 Dose: 2 puff Tramadol HCl (Ultram*) 50 mg PO BEDTIME [facility] Last Admin: 01/08/19 21:33 Dose: 50 mg Tramadol HCl (Ultram*) 50 mg PO Q6H PRN PRN Reason: PAIN - MODERATE Last Admin: 01/07/19 14:58 Dose: 50 mg Trimethoprim/Sulfamethoxazole (Bactrim Ds 800/160 Tab*) 1 tab PO BID [facility] Last Admin: 01/09/19 08:51 Dose: 1 tab Vital Signs - 8 hr 01/09/19 01/09/19 01/09/19 10:58 11:27 15:05 Temperature 98.5 F 97.9 F Pulse Rate 87 90 Respiratory 20 20 18 Rate Blood Pressure 134/73 133/68 (mmHg) O2 Sat by Pulse 95 95 Oximetry 01/09/19 15:56 Temperature Pulse Rate Respiratory 19 Rate Blood Pressure (mmHg) O2 Sat by Pulse Oximetry Oxygen Devices in Use Now: None Appearance: well appearing, NAD, no increased WOB Ears/Nose/Mouth/Throat: Clear Oropharnyx, Mucous Membranes Moist Neck: NL Appearance and Movements; NL JVP, Trachea Midline Respiratory: - - scant expiratory wheeze, good air movement Cardiovascular: NL Sounds; No Murmurs; No JVD, RRR Abdominal: NL Sounds; No Tenderness; No Distention - protuberant, no fluid wave , No Hepatosplenomegaly Extremities: - - 2+ pitting edema 2/3 up shins Neurological: Alert and Oriented x 3, NL Gait Result Diagrams: 01/07/19 06:33 01/09/19 14:30 Additional Lab and Data: Lab Results 01/03/19 01/03/19 01/03/19 Range/Units 14:16 14:16 14:16 WBC 17.0 H (3.5-10.8) 10^3/uL RBC 5.42 (4.18-5.48) 10^6 /uL Hgb 17.7 (14.0-18.0) g/dL Hct 52 (42-52) % MCV 95 H (80-94) fL MCH 33 H (27-31) pg MCHC 34 (31-36) g/dL RDW 17 H (10-15) % Plt Count 275 (150-450) 10^3/uL MPV 8.0 (7.4-10.4) fL Neut % (Auto) 84.9 % Lymph % (Auto) 4.9 % [place] % (Auto) 9.3 % Eos % (Auto) 0.5 % Baso % (Auto) 0.4 % Absolute Neuts (auto) 14.4 H (1.5-7.7) 10^3/ul Absolute Lymphs (auto) 0.8 L (1.0-4.8) 10^3/ul Absolute Monos (auto) 1.6 H (0-0.8) 10^3/ul Absolute Eos (auto) 0.1 (0-0.6) 10^3/ul Absolute Basos (auto) 0.1 (0-0.2) 10^3/ul Absolute Nucleated RBC 0.0 10^3/ul Nucleated RBC % 0.0 INR (Anticoag Therapy) 1.11 H (0.82-1.09) ABG pH (7.35-7.45) ABG pCO2 (35-45) mmHg ABG pO2 (80-100) mmHg ABG HCO3 (19-31) mmol/L ABG O2 Saturation (94.0-98.0) % ABG Base Excess (-2.0-2.0) mmol/L Sodium 127 L (135-145) mmol/L Potassium 3.3 L (3.5-5.0) mmol/L Chloride 83 L (101-111) mmol/L Carbon Dioxide 32 (22-32) mmol/L Anion Gap 12 H (2-11) mmol/L BUN 10 (6-24) mg/dL Creatinine 1.16 (0.67-1.17) mg/dL Est GFR ( Amer) 78.8 (>60) Est GFR (Non-Af Amer) 65.1 (>60) BUN/Creatinine Ratio 8.6 (8-20) Glucose 127 H (70-100) mg/dL Calcium 9.7 (8.6-10.3) mg/dL Total Bilirubin 1.30 H (0.2-1.0) mg/dL AST 19 (13-39) U/L ALT 14 (7-52) U/L Alkaline Phosphatase 74 (34-104) U/L Total Creatine Kinase 70 (10-223) U/L CK-MB (CK-2) 1.5 (0.6-6.3) ng/mL Troponin I 0.01 (<0.04) ng/mL C-Reactive Protein 119.60 H (<8.01) mg/L C-React Prot High Sens Cancelled B-Natriuretic Peptide (<=100) pg/mL Total Protein 8.4 (6.4-8.9) g/dL Albumin 4.4 (3.2-5.2) g/dL Globulin 4.0 (2-4) g/dL Albumin/Globulin Ratio 1.1 (1-3) 01/03/19 01/03/19 01/03/19 Range/Units 14:16 16:20 16:53 WBC (3.5-10.8) 10^3/uL RBC (4.18-5.48) 10^6 /uL Hgb (14.0-18.0) g/dL Hct (42-52) % MCV (80-94) fL MCH (27-31) pg MCHC (31-36) g/dL RDW (10-15) % Plt Count (150-450) 10^3/uL MPV (7.4-10.4) fL Neut % (Auto) % Lymph % (Auto) % [place] % (Auto) % Eos % (Auto) % Baso % (Auto) % Absolute Neuts (auto) (1.5-7.7) 10^3/ul Absolute Lymphs (auto) (1.0-4.8) 10^3/ul Absolute Monos (auto) (0-0.8) 10^3/ul Absolute Eos (auto) (0-0.6) 10^3/ul Absolute Basos (auto) (0-0.2) 10^3/ul Absolute Nucleated RBC 10^3/ul Nucleated RBC % INR (Anticoag Therapy) (0.82-1.09) ABG pH 7.59 H (7.35-7.45) ABG pCO2 31 L (35-45) mmHg ABG pO2 59 L* (80-100) mmHg ABG HCO3 31.0 (19-31) mmol/L ABG O2 Saturation 94.4 (94.0-98.0) % ABG Base Excess 8.1 H (-2.0-2.0) mmol/L Sodium (135-145) mmol/L Potassium (3.5-5.0) mmol/L Chloride (101-111) mmol/L Carbon Dioxide (22-32) mmol/L Anion Gap (2-11) mmol/L BUN (6-24) mg/dL Creatinine (0.67-1.17) mg/dL Est GFR ( Amer) (>60) Est GFR (Non-Af Amer) (>60) BUN/Creatinine Ratio (8-20) Glucose (70-100) mg/dL Calcium (8.6-10.3) mg/dL Total Bilirubin (0.2-1.0) mg/dL AST (13-39) U/L ALT (7-52) U/L Alkaline Phosphatase (34-104) U/L Total Creatine Kinase (10-223) U/L CK-MB (CK-2) (0.6-6.3) ng/mL Troponin I 0.01 (<0.04) ng/mL C-Reactive Protein (<8.01) mg/L C-React Prot High Sens B-Natriuretic Peptide 144 H (<=100) pg/mL Total Protein (6.4-8.9) g/dL Albumin (3.2-5.2) g/dL Globulin (2-4) g/dL Albumin/Globulin Ratio (1-3) Microbiology and Other Data: Microbiology 01/04/19 01:49 Legionella Urinary Antigen - Final Urine Negative Legionella Antigen Streptococcus pneumoniae Ag Screen - Final Negative S. pneumo Antigen Assess/Plan/Problems-Billing 58M with COPD/asthma with active tobacco use, HTN and h/o afib, who presented with SOB and scrotal swelling, and was admitted for a COPD exacerbation and scrotal and groin cellulitis. - Patient Problems (1) Cellulitis of scrotum Comment: Cellulitis and sharron intertrigo of the scrotum and groin bilaterally. Seen by uro who recommends to continue abx. - switch IV CTX (01/03 - 01/06) to PO Bactrim (01/07 - 01/12) and monitor response - s/p fluconazole (01/04 - 01/07) - encourage good skin hygeine (2) COPD exacerbation Comment: Very low concern for bacterial PNA - pt reports continued smoking and possibly a recent URI. On room air. - cont steroid burst - continue nebs prn (3) Heart failure with preserved ejection fraction Comment: was previously on HCTZ for BP, but presented with low Na, K, and Mg. Started to experience LE edema off diuretic. - cont furosemide 40mg daily and monitor BMP - will given IV today given worsening edema (4) HTN (hypertension) Comment: Holding home HCTZ given profound electrolyte abnormalities. - cont home atenolol and amlodipine (5) GERD (gastroesophageal reflux disease) Comment: Stopping PPI given profound hypomagnesmia. - start on H2 dashawn prn (6) Tobacco abuse Comment: Encourage smoking cessation. Pt motivated. (7) Hyponatremia Comment: Resolved. Likely from HCTZ. (8) DVT prophylaxis Comment: lovenox (9) Full code status Current Visit: Yes Status: Acute Code(s): Z78.9 - OTHER SPECIFIED HEALTH STATUS SNOMED Code(s): 057740436
[2019-01-09] MEDS ORDERED: Nicotine* 2MG (FRUIT FLAVOR) GUM PO PRN (19:25)
[2019-01-09] MEDS: Amitriptyline TAB* 50 MG PO SCH (21:17)
[2019-01-09] MEDS: traMADol TAB* 50 MG PO SCH (21:17)
[2019-01-09] MEDS: Gabapentin CAP(*) 300 MG PO SCH (21:18)
[2019-01-09] MEDS: Enoxaparin(*) 40 MG/0.4 ML SYR SUBCUT SCH (21:20)
[2019-01-10 06:26] LABS: BUN/Creatinine Ratio 23.7 (8-20); Calcium 9.2 mg/dL (8.6-10.3); EGFR African American 80.4 (>60); EGFR Non-African American 66.4 (>60); Magnesium 1.4 mg/dL (1.9-2.7); Potassium 4.2 mmol/L (3.5-5.0)
[2019-01-10] MEDS: Furosemide TAB* 20 MG PO SCH (07:20)
[2019-01-10] MEDS: Sulfamethox/Trimethoprim DS 800/160* TAB PO SCH ×2 (07:21→21:15)
[2019-01-10] MEDS: amLODIPine TAB* 5 MG PO SCH (07:21)
[2019-01-10] MEDS: Atenolol TAB* 50 MG PO SCH (07:21)
[2019-01-10] MEDS: Aspirin EC TAB* 81 MG TAB.EC PO SCH (07:21)
[2019-01-10] MEDS: Gabapentin CAP(*) 400 MG PO SCH ×2 (07:24→14:08)
[2019-01-10] MEDS: Albuterol 2.5 MG/3 ML NEB.SOL* (0.083%) INH PRN ×3 (07:37→19:12)
[2019-01-10] MEDS: Mometasone/Formoter 100/5 MDI INH SCH ×2 (07:37→19:12)
[2019-01-10] MEDS ORDERED: Magnesium Sulfate 2 GM IV* 2 GM/50 ML BAG IVPB ONE (08:59)
[2019-01-10] MEDS ORDERED: Furosemide IV* 10 MG/ML 10 ML VIAL (100 MG) IV ONE (09:45)
[2019-01-10] MEDS ORDERED: Metolazone TAB* 5 MG PO ONE (09:46)
[2019-01-10] MEDS: Famotidine TAB* 20 MG PO PRN (10:34)
[2019-01-10 12:44] LABS: BUN/Creatinine Ratio 21.8 (8-20); Calcium 9.7 mg/dL (8.6-10.3); EGFR African American 67.3 (>60); EGFR Non-African American 55.6 (>60); Magnesium 1.6 mg/dL (1.9-2.7); Potassium 4.2 mmol/L (3.5-5.0)
[2019-01-10] MEDS ORDERED: Furosemide IV* 10 MG/ML 2 ML VIAL (20 MG) IV ONE (14:00)
[2019-01-10] MEDS ORDERED: Magnesium Sulfate IV* 3 GM in NS 0.9% 100 ML* 100 ML IVPB ONE (17:07)
--- NOTE | 2019-01-10 17:11 | PN ---
Subjective Date of Service: 01/10/19 Interval History: No significant events overnight. Pt previously very motivated to go home today, but now reporting orthopnea. States he prefers to get more water off before discharge. TAVERAS has nearly resolved and scrotum swelling/pain also nearly resolved. No chest pain, fevers, rigors, or dysuria. Objective Active Medications: Acetaminophen (Tylenol Tab*) 975 mg PO Q8H PRN PRN Reason: MILD PAIN or TEMP > 100.4 Last Admin: 01/06/19 17:28 Dose: 975 mg Albuterol (Ventolin 2.5 Mg/3 Ml Neb.Kourtney*) 2.5 mg INH Q2H PRN PRN Reason: sob/wheezing Last Admin: 01/10/19 16:37 Dose: 2.5 mg Amitriptyline HCl (Elavil Tab*) 150 mg PO BEDTIME [facility] Last Admin: 01/09/19 21:17 Dose: 150 mg Amlodipine Besylate (Norvasc Tab*) 5 mg PO DAILY [facility] Last Admin: 01/10/19 07:21 Dose: 5 mg Aspirin (Aspirin Ec Tab*) 81 mg PO DAILY [facility] Last Admin: 01/10/19 07:21 Dose: 81 mg Atenolol (Tenormin Tab*) 100 mg PO DAILY [facility] Last Admin: 01/10/19 07:21 Dose: 100 mg Enoxaparin Sodium (Lovenox(*)) 40 mg SUBCUT Q24H [facility] Last Admin: 01/09/19 21:20 Dose: 40 mg Famotidine (Pepcid Tab*) 20 mg PO BID PRN PRN Reason: reflux Last Admin: 01/10/19 10:34 Dose: 20 mg Furosemide (Lasix Tab*) 40 mg PO DAILY [facility] Last Admin: 01/10/19 07:20 Dose: 40 mg Gabapentin (Neurontin Cap(*)) 600 mg PO BEDTIME [facility] Last Admin: 01/09/19 21:18 Dose: 600 mg Gabapentin (Neurontin Cap(*)) 1,200 mg PO BID@0900,1500 [facility] Last Admin: 01/10/19 14:08 Dose: 1,200 mg Mometasone Furoate/Formoterol Fumar (Dulera 100/5 Mdi*) 2 puff INH BID [facility] Last Admin: 01/10/19 07:37 Dose: 2 puff Nicotine Polacrilex (Nicotine Gum*) 2 mg PO Q2H PRN PRN Reason: NICOTINE CRAVINGS Last Admin: 01/09/19 19:36 Dose: 2 mg Tramadol HCl (Ultram*) 50 mg PO BEDTIME [facility] Last Admin: 01/09/19 21:17 Dose: 50 mg Tramadol HCl (Ultram*) 50 mg PO Q6H PRN PRN Reason: PAIN - MODERATE Last Admin: 01/07/19 14:58 Dose: 50 mg Trimethoprim/Sulfamethoxazole (Bactrim Ds 800/160 Tab*) 1 tab PO BID LOC Last Admin: 01/10/19 07:21 Dose: 1 tab Vital Signs - 8 hr 01/10/19 01/10/19 01/10/19 10:00 11:15 14:08 Temperature 98.3 F Pulse Rate 66 Respiratory 18 16 18 Rate Blood Pressure 119/70 (mmHg) O2 Sat by Pulse 95 Oximetry 01/10/19 01/10/19 01/10/19 15:01 15:48 16:15 Temperature 97.8 F Pulse Rate 86 Respiratory 18 20 24 Rate Blood Pressure 130/71 (mmHg) O2 Sat by Pulse 95 95 Oximetry 01/10/19 16:37 Temperature Pulse Rate 84 Respiratory 18 Rate Blood Pressure (mmHg) O2 Sat by Pulse 96 Oximetry Oxygen Devices in Use Now: None Appearance: well appearing friendly man in NAD Ears/Nose/Mouth/Throat: Clear Oropharnyx, Mucous Membranes Moist Neck: NL Appearance and Movements; NL JVP, Trachea Midline Respiratory: - - wheezing resolved, air movement good, no crackles Cardiovascular: NL Sounds; No Murmurs; No JVD, RRR Abdominal: NL Sounds; No Tenderness; No Distention - protuberant, no fluid wave , No Hepatosplenomegaly Extremities: - - 1+ pitting edema 2/3 up shins Skin: No Rash or Ulcers, - - defers scrotal exam Neurological: Alert and Oriented x 3, NL Gait Result Diagrams: 01/07/19 06:33 01/10/19 12:09 Additional Lab and Data: Lab Results 01/03/19 01/03/19 01/03/19 Range/Units 14:16 14:16 14:16 WBC 17.0 H (3.5-10.8) 10^3/uL RBC 5.42 (4.18-5.48) 10^6 /uL Hgb 17.7 (14.0-18.0) g/dL Hct 52 (42-52) % MCV 95 H (80-94) fL MCH 33 H (27-31) pg MCHC 34 (31-36) g/dL RDW 17 H (10-15) % Plt Count 275 (150-450) 10^3/uL MPV 8.0 (7.4-10.4) fL Neut % (Auto) 84.9 % Lymph % (Auto) 4.9 % [place] % (Auto) 9.3 % Eos % (Auto) 0.5 % Baso % (Auto) 0.4 % Absolute Neuts (auto) 14.4 H (1.5-7.7) 10^3/ul Absolute Lymphs (auto) 0.8 L (1.0-4.8) 10^3/ul Absolute Monos (auto) 1.6 H (0-0.8) 10^3/ul Absolute Eos (auto) 0.1 (0-0.6) 10^3/ul Absolute Basos (auto) 0.1 (0-0.2) 10^3/ul Absolute Nucleated RBC 0.0 10^3/ul Nucleated RBC % 0.0 INR (Anticoag Therapy) 1.11 H (0.82-1.09) ABG pH (7.35-7.45) ABG pCO2 (35-45) mmHg ABG pO2 (80-100) mmHg ABG HCO3 (19-31) mmol/L ABG O2 Saturation (94.0-98.0) % ABG Base Excess (-2.0-2.0) mmol/L Sodium 127 L (135-145) mmol/L Potassium 3.3 L (3.5-5.0) mmol/L Chloride 83 L (101-111) mmol/L Carbon Dioxide 32 (22-32) mmol/L Anion Gap 12 H (2-11) mmol/L BUN 10 (6-24) mg/dL Creatinine 1.16 (0.67-1.17) mg/dL Est GFR ( Amer) 78.8 (>60) Est GFR (Non-Af Amer) 65.1 (>60) BUN/Creatinine Ratio 8.6 (8-20) Glucose 127 H (70-100) mg/dL Calcium 9.7 (8.6-10.3) mg/dL Total Bilirubin 1.30 H (0.2-1.0) mg/dL AST 19 (13-39) U/L ALT 14 (7-52) U/L Alkaline Phosphatase 74 (34-104) U/L Total Creatine Kinase 70 (10-223) U/L CK-MB (CK-2) 1.5 (0.6-6.3) ng/mL Troponin I 0.01 (<0.04) ng/mL C-Reactive Protein 119.60 H (<8.01) mg/L C-React Prot High Sens Cancelled B-Natriuretic Peptide (<=100) pg/mL Total Protein 8.4 (6.4-8.9) g/dL Albumin 4.4 (3.2-5.2) g/dL Globulin 4.0 (2-4) g/dL Albumin/Globulin Ratio 1.1 (1-3) 01/03/19 01/03/19 01/03/19 Range/Units 14:16 16:20 16:53 WBC (3.5-10.8) 10^3/uL RBC (4.18-5.48) 10^6 /uL Hgb (14.0-18.0) g/dL Hct (42-52) % MCV (80-94) fL MCH (27-31) pg MCHC (31-36) g/dL RDW (10-15) % Plt Count (150-450) 10^3/uL MPV (7.4-10.4) fL Neut % (Auto) % Lymph % (Auto) % [place] % (Auto) % Eos % (Auto) % Baso % (Auto) % Absolute Neuts (auto) (1.5-7.7) 10^3/ul Absolute Lymphs (auto) (1.0-4.8) 10^3/ul Absolute Monos (auto) (0-0.8) 10^3/ul Absolute Eos (auto) (0-0.6) 10^3/ul Absolute Basos (auto) (0-0.2) 10^3/ul Absolute Nucleated RBC 10^3/ul Nucleated RBC % INR (Anticoag Therapy) (0.82-1.09) ABG pH 7.59 H (7.35-7.45) ABG pCO2 31 L (35-45) mmHg ABG pO2 59 L* (80-100) mmHg ABG HCO3 31.0 (19-31) mmol/L ABG O2 Saturation 94.4 (94.0-98.0) % ABG Base Excess 8.1 H (-2.0-2.0) mmol/L Sodium (135-145) mmol/L Potassium (3.5-5.0) mmol/L Chloride (101-111) mmol/L Carbon Dioxide (22-32) mmol/L Anion Gap (2-11) mmol/L BUN (6-24) mg/dL Creatinine (0.67-1.17) mg/dL Est GFR ( Amer) (>60) Est GFR (Non-Af Amer) (>60) BUN/Creatinine Ratio (8-20) Glucose (70-100) mg/dL Calcium (8.6-10.3) mg/dL Total Bilirubin (0.2-1.0) mg/dL AST (13-39) U/L ALT (7-52) U/L Alkaline Phosphatase (34-104) U/L Total Creatine Kinase (10-223) U/L CK-MB (CK-2) (0.6-6.3) ng/mL Troponin I 0.01 (<0.04) ng/mL C-Reactive Protein (<8.01) mg/L C-React Prot High Sens B-Natriuretic Peptide 144 H (<=100) pg/mL Total Protein (6.4-8.9) g/dL Albumin (3.2-5.2) g/dL Globulin (2-4) g/dL Albumin/Globulin Ratio (1-3) Microbiology and Other Data: Microbiology 01/04/19 01:49 Legionella Urinary Antigen - Final Urine Negative Legionella Antigen Streptococcus pneumoniae Ag Screen - Final Negative S. pneumo Antigen Assess/Plan/Problems-Billing 58M with COPD/asthma with active tobacco use, HTN and h/o afib, who presented with SOB and scrotal swelling, and was admitted for a COPD exacerbation and scrotal and groin cellulitis. - Patient Problems (1) Heart failure with preserved ejection fraction Comment: was previously on HCTZ for BP, but presented with low Na, K, and Mg. Started to experience LE edema off diuretic, likely component of steroids contributing to volume overload, as well - cont furosemide 40mg daily and monitor BMP - givingn furosemide IV and 1 dose of metolazone today (2) Cellulitis of scrotum Comment: Cellulitis and sharron intertrigo of the scrotum and groin bilaterally. Seen by uro who recommends to continue abx. - switch IV CTX (01/03 - 01/06) to PO Bactrim (01/07 - 01/12); good response - s/p fluconazole (01/04 - 01/07) - encourage good skin hygeine (3) COPD exacerbation Comment: Very low concern for bacterial PNA - pt reports continued smoking and possibly a recent URI. On room air. - s/p steroid burst - continue nebs prn - encourage tobacco cessation (4) HTN (hypertension) Comment: Holding home HCTZ given profound electrolyte abnormalities. - cont home atenolol and amlodipine (5) GERD (gastroesophageal reflux disease) Comment: Stopping PPI given profound hypomagnesmia. - start on H2 dashawn prn (6) Tobacco abuse Comment: Encourage smoking cessation. Pt motivated. (7) Hyponatremia Comment: Resolved. Likely from HCTZ. (8) DVT prophylaxis Comment: lovenox (9) Full code status Current Visit: Yes Status: Acute Code(s): Z78.9 - OTHER SPECIFIED HEALTH STATUS SNOMED Code(s): 636438247
[2019-01-10] MEDS: Enoxaparin(*) 40 MG/0.4 ML SYR SUBCUT SCH (21:14)
[2019-01-10] MEDS: Gabapentin CAP(*) 300 MG PO SCH (21:15)
[2019-01-10] MEDS: traMADol TAB* 50 MG PO SCH (21:15)
[2019-01-10] MEDS: Amitriptyline TAB* 50 MG PO SCH (21:15)
[2019-01-11 06:24] LABS: BUN/Creatinine Ratio 23.5 (8-20); EGFR African American 67.9 (>60); EGFR Non-African American 56.1 (>60); Magnesium 1.4 mg/dL (1.9-2.7); Potassium 4.2 mmol/L (3.5-5.0)
[2019-01-11] MEDS: Mometasone/Formoter 100/5 MDI INH SCH ×2 (07:23→19:48)
[2019-01-11] MEDS: Albuterol 2.5 MG/3 ML NEB.SOL* (0.083%) INH PRN ×2 (07:23→19:47)
[2019-01-11] MEDS: amLODIPine TAB* 5 MG PO SCH (08:41)
[2019-01-11] MEDS: Aspirin EC TAB* 81 MG TAB.EC PO SCH (08:41)
[2019-01-11] MEDS: Furosemide TAB* 20 MG PO SCH (08:41)
[2019-01-11] MEDS: Atenolol TAB* 50 MG PO SCH (08:42)
[2019-01-11] MEDS: Gabapentin CAP(*) 400 MG PO SCH ×2 (08:42→15:57)
[2019-01-11] MEDS: Sulfamethox/Trimethoprim DS 800/160* TAB PO SCH ×2 (08:42→20:55)
[2019-01-11] MEDS: Acetaminophen TAB* 325 MG PO PRN ×2 (08:55→17:18)
[2019-01-11] MEDS ORDERED: Magnesium Sulfate 2 GM IV* 2 GM/50 ML BAG IVPB ONE (09:01)
[2019-01-11] MEDS: Magnesium Oxide TAB* 400 MG PO SCH ×2 (10:05→20:56)
[2019-01-11 15:20] LABS: BUN/Creatinine Ratio 23.5 (8-20); Calcium 9.8 mg/dL (8.6-10.3); EGFR African American 67.9 (>60); EGFR Non-African American 56.1 (>60); Magnesium 1.9 mg/dL (1.9-2.7); Potassium 4.2 mmol/L (3.5-5.0)
--- NOTE | 2019-01-11 16:19 | PN ---
Subjective Date of Service: 01/11/19 Interval History: patient continues to complains of shortness of breath and increase leg pain bilaterally, cramps and tightness. He is still very winded with ambulation to the bathroom. No fever or chills. very anxious and concerned regarding his minimal improvement Past Medical History: Unchanged from Admission Objective Active Medications: Acetaminophen (Tylenol Tab*) 975 mg PO Q8H PRN PRN Reason: MILD PAIN or TEMP > 100.4 Last Admin: 01/11/19 08:55 Dose: 975 mg Albuterol (Ventolin 2.5 Mg/3 Ml Neb.Kourtney*) 2.5 mg INH Q2H PRN PRN Reason: sob/wheezing Last Admin: 01/11/19 07:23 Dose: 2.5 mg Amitriptyline HCl (Elavil Tab*) 150 mg PO BEDTIME [facility] Last Admin: 01/10/19 21:15 Dose: 150 mg Amlodipine Besylate (Norvasc Tab*) 5 mg PO DAILY [facility] Last Admin: 01/11/19 08:41 Dose: 5 mg Aspirin (Aspirin Ec Tab*) 81 mg PO DAILY [facility] Last Admin: 01/11/19 08:41 Dose: 81 mg Atenolol (Tenormin Tab*) 100 mg PO DAILY [facility] Last Admin: 01/11/19 08:42 Dose: 100 mg Azithromycin (Zithromax Tab*) 250 mg PO DAILY [facility] Cefdinir (Cefdinir Cap*) 300 mg PO BID [facility] Enoxaparin Sodium (Lovenox(*)) 40 mg SUBCUT Q24H [facility] Last Admin: 01/10/19 21:14 Dose: 40 mg Famotidine (Pepcid Tab*) 20 mg PO BID PRN PRN Reason: reflux Last Admin: 01/10/19 10:34 Dose: 20 mg Furosemide (Lasix Tab*) 40 mg PO DAILY [facility] Last Admin: 01/11/19 08:41 Dose: 40 mg Gabapentin (Neurontin Cap(*)) 600 mg PO BEDTIME [facility] Last Admin: 01/10/19 21:15 Dose: 600 mg Gabapentin (Neurontin Cap(*)) 1,200 mg PO BID@0900,1500 [facility] Last Admin: 01/11/19 15:57 Dose: 1,200 mg Magnesium Oxide (Magox 400 Tab*) 800 mg PO BID [facility] Last Admin: 01/11/19 10:05 Dose: 800 mg Mometasone Furoate/Formoterol Fumar (Dulera 100/5 Mdi*) 2 puff INH BID [facility] Last Admin: 01/11/19 07:23 Dose: 2 puff Nicotine Polacrilex (Nicotine Gum*) 2 mg PO Q2H PRN PRN Reason: NICOTINE CRAVINGS Last Admin: 01/09/19 19:36 Dose: 2 mg Prednisone (Deltasone Tab*) 40 mg PO DAILY [facility] Tramadol HCl (Ultram*) 50 mg PO BEDTIME [facility] Last Admin: 01/10/19 21:15 Dose: 50 mg Tramadol HCl (Ultram*) 50 mg PO Q6H PRN PRN Reason: PAIN - MODERATE Last Admin: 01/07/19 14:58 Dose: 50 mg Trimethoprim/Sulfamethoxazole (Bactrim Ds 800/160 Tab*) 1 tab PO BID [facility] Last Admin: 01/11/19 08:42 Dose: 1 tab Vital Signs - 8 hr 01/11/19 01/11/19 01/11/19 08:42 11:15 14:07 Temperature 98.3 F Pulse Rate 86 Respiratory 18 16 16 Rate Blood Pressure 112/62 (mmHg) O2 Sat by Pulse 92 Oximetry 01/11/19 15:57 Temperature Pulse Rate Respiratory 16 Rate Blood Pressure (mmHg) O2 Sat by Pulse Oximetry Oxygen Devices in Use Now: None Appearance: awake, alert, anxious. audible wheezing Eyes: No Scleral Icterus, - - EOMI Ears/Nose/Mouth/Throat: NL Teeth, Lips, Gums, Mucous Membranes Moist Neck: NL Appearance and Movements; NL JVP, Trachea Midline Respiratory: - - expiratory wheezing. auto peep with lip piercing Cardiovascular: NL Sounds; No Murmurs; No JVD, - - +1 edema, tense Abdominal: NL Sounds; No Tenderness; No Distention Neurological: Alert and Oriented x 3 Result Diagrams: 01/07/19 06:33 01/11/19 14:36 Additional Lab and Data: Lab Results 01/03/19 01/03/19 01/03/19 Range/Units 14:16 14:16 14:16 WBC 17.0 H (3.5-10.8) 10^3/uL RBC 5.42 (4.18-5.48) 10^6 /uL Hgb 17.7 (14.0-18.0) g/dL Hct 52 (42-52) % MCV 95 H (80-94) fL MCH 33 H (27-31) pg MCHC 34 (31-36) g/dL RDW 17 H (10-15) % Plt Count 275 (150-450) 10^3/uL MPV 8.0 (7.4-10.4) fL Neut % (Auto) 84.9 % Lymph % (Auto) 4.9 % [place] % (Auto) 9.3 % Eos % (Auto) 0.5 % Baso % (Auto) 0.4 % Absolute Neuts (auto) 14.4 H (1.5-7.7) 10^3/ul Absolute Lymphs (auto) 0.8 L (1.0-4.8) 10^3/ul Absolute Monos (auto) 1.6 H (0-0.8) 10^3/ul Absolute Eos (auto) 0.1 (0-0.6) 10^3/ul Absolute Basos (auto) 0.1 (0-0.2) 10^3/ul Absolute Nucleated RBC 0.0 10^3/ul Nucleated RBC % 0.0 INR (Anticoag Therapy) 1.11 H (0.82-1.09) ABG pH (7.35-7.45) ABG pCO2 (35-45) mmHg ABG pO2 (80-100) mmHg ABG HCO3 (19-31) mmol/L ABG O2 Saturation (94.0-98.0) % ABG Base Excess (-2.0-2.0) mmol/L Sodium 127 L (135-145) mmol/L Potassium 3.3 L (3.5-5.0) mmol/L Chloride 83 L (101-111) mmol/L Carbon Dioxide 32 (22-32) mmol/L Anion Gap 12 H (2-11) mmol/L BUN 10 (6-24) mg/dL Creatinine 1.16 (0.67-1.17) mg/dL Est GFR ( Amer) 78.8 (>60) Est GFR (Non-Af Amer) 65.1 (>60) BUN/Creatinine Ratio 8.6 (8-20) Glucose 127 H (70-100) mg/dL Calcium 9.7 (8.6-10.3) mg/dL Total Bilirubin 1.30 H (0.2-1.0) mg/dL AST 19 (13-39) U/L ALT 14 (7-52) U/L Alkaline Phosphatase 74 (34-104) U/L Total Creatine Kinase 70 (10-223) U/L CK-MB (CK-2) 1.5 (0.6-6.3) ng/mL Troponin I 0.01 (<0.04) ng/mL C-Reactive Protein 119.60 H (<8.01) mg/L C-React Prot High Sens Cancelled B-Natriuretic Peptide (<=100) pg/mL Total Protein 8.4 (6.4-8.9) g/dL Albumin 4.4 (3.2-5.2) g/dL Globulin 4.0 (2-4) g/dL Albumin/Globulin Ratio 1.1 (1-3) 01/03/19 01/03/19 01/03/19 Range/Units 14:16 16:20 16:53 WBC (3.5-10.8) 10^3/uL RBC (4.18-5.48) 10^6 /uL Hgb (14.0-18.0) g/dL Hct (42-52) % MCV (80-94) fL MCH (27-31) pg MCHC (31-36) g/dL RDW (10-15) % Plt Count (150-450) 10^3/uL MPV (7.4-10.4) fL Neut % (Auto) % Lymph % (Auto) % [place] % (Auto) % Eos % (Auto) % Baso % (Auto) % Absolute Neuts (auto) (1.5-7.7) 10^3/ul Absolute Lymphs (auto) (1.0-4.8) 10^3/ul Absolute Monos (auto) (0-0.8) 10^3/ul Absolute Eos (auto) (0-0.6) 10^3/ul Absolute Basos (auto) (0-0.2) 10^3/ul Absolute Nucleated RBC 10^3/ul Nucleated RBC % INR (Anticoag Therapy) (0.82-1.09) ABG pH 7.59 H (7.35-7.45) ABG pCO2 31 L (35-45) mmHg ABG pO2 59 L* (80-100) mmHg ABG HCO3 31.0 (19-31) mmol/L ABG O2 Saturation 94.4 (94.0-98.0) % ABG Base Excess 8.1 H (-2.0-2.0) mmol/L Sodium (135-145) mmol/L Potassium (3.5-5.0) mmol/L Chloride (101-111) mmol/L Carbon Dioxide (22-32) mmol/L Anion Gap (2-11) mmol/L BUN (6-24) mg/dL Creatinine (0.67-1.17) mg/dL Est GFR ( Amer) (>60) Est GFR (Non-Af Amer) (>60) BUN/Creatinine Ratio (8-20) Glucose (70-100) mg/dL Calcium (8.6-10.3) mg/dL Total Bilirubin (0.2-1.0) mg/dL AST (13-39) U/L ALT (7-52) U/L Alkaline Phosphatase (34-104) U/L Total Creatine Kinase (10-223) U/L CK-MB (CK-2) (0.6-6.3) ng/mL Troponin I 0.01 (<0.04) ng/mL C-Reactive Protein (<8.01) mg/L C-React Prot High Sens B-Natriuretic Peptide 144 H (<=100) pg/mL Total Protein (6.4-8.9) g/dL Albumin (3.2-5.2) g/dL Globulin (2-4) g/dL Albumin/Globulin Ratio (1-3) Microbiology and Other Data: Microbiology 01/04/19 01:49 Legionella Urinary Antigen - Final Urine Negative Legionella Antigen Streptococcus pneumoniae Ag Screen - Final Negative S. pneumo Antigen Assess/Plan/Problems-Billing 58M with COPD/asthma with active tobacco use, HTN and h/o afib, who presented with SOB and scrotal swelling, and was admitted for a COPD exacerbation and scrotal and groin cellulitis. - Patient Problems (1) COPD exacerbation Current Visit: Yes Status: Acute Code(s): J44.1 - CHRONIC OBSTRUCTIVE PULMONARY DISEASE W (ACUTE) EXACERBATION SNOMED Code(s): 303179650 Comment: - pt reports continued smoking given his worsening symptomatology today, I will resume him back on steroid and antibiotics. Will place him on Prednisone, cefdinir and zithromax - continue nebs prn - encourage tobacco cessation (2) Cellulitis of scrotum Current Visit: Yes Status: Acute Code(s): N49.2 - INFLAMMATORY DISORDERS OF SCROTUM SNOMED Code(s): 66181986 Comment: - Cellulitis and sharron intertrigo of the scrotum and groin bilaterally. Seen by uro who recommends to continue abx. - switch IV CTX (01/03 - 01/06) to PO Bactrim (01/07 - 01/12); good response - s/p fluconazole (01/04 - 01/07) - encourage good skin hygeine (3) Heart failure with preserved ejection fraction Current Visit: Yes Status: Acute Code(s): I50.30 - UNSPECIFIED DIASTOLIC ( CONGESTIVE) HEART FAILURE SNOMED Code(s): 853241614 Comment: - was previously on HCTZ for BP, but presented with low Na, K, and Mg. Started to experience LE edema off diuretic, likely component of steroids contributing to volume overload, as well - cont furosemide 40mg daily and monitor BMP - Repeat CXR and Echo (4) DVT prophylaxis Current Visit: Yes Status: Acute Code(s): OKP9571 - SNOMED Code(s): 882350287 Comment: lovenox (5) Leg pain, bilateral Current Visit: Yes Status: Acute Code(s): M79.604 - PAIN IN RIGHT LEG; M79.605 - PAIN IN LEFT LEG SNOMED Code(s): 25778132 Comment: - suspect secondary to eletrolytes disturbance - However, given his smoking history, sedentary style, I will check US of leg and D-dimers - Check phos level
[2019-01-11 16:23] LABS: Phosphorus 6.5 mg/dL (2.5-5.0)
[2019-01-11] MEDS: Azithromycin TAB* 250 MG PO SCH (17:18)
[2019-01-11] MEDS: predniSONE TAB* 20 MG PO SCH (17:19)
[2019-01-11] MEDS: traMADol TAB* 50 MG PO PRN (17:19)
[2019-01-11] MEDS ORDERED: Calcium Acetate CAP* 667 MG PO ONE (18:30)
[2019-01-11] MEDS ORDERED: Diltiazem IV push/loading dose 5 MG/ML 5 ML vial (25 mg) IV SLOW PU ONE (20:52)
[2019-01-11] MEDS: Gabapentin CAP(*) 300 MG PO SCH (20:56)
[2019-01-11] MEDS: Famotidine TAB* 20 MG PO PRN (20:56)
[2019-01-11] MEDS: Amitriptyline TAB* 50 MG PO SCH (20:56)
[2019-01-11] MEDS: traMADol TAB* 50 MG PO SCH (20:57)
[2019-01-11] MEDS: Cefdinir cap* 300 MG CAP PO SCH (20:57)
[2019-01-11] MEDS: Enoxaparin(*) 40 MG/0.4 ML SYR SUBCUT SCH (21:01)
[2019-01-11] MEDS ORDERED: Diltiazem TAB* 30 MG PO ONE (21:11)
[2019-01-12] MEDS: Diltiazem TAB* 30 MG PO SCH ×3 (00:18→12:30)
[2019-01-12 05:30] LABS: ABS Basophils 0.1 10^3/ul (0-0.2); ABS Lymphocytes 0.4 10^3/ul (1.0-4.8); ABS Monocytes 0.8 10^3/ul (0-0.8); ABS Neutrophils 9.8 10^3/ul (1.5-7.7); Eosinophil % 0.1 %; Hematocrit 40 % (42-52); Hemoglobin 13.3 g/dL (14.0-18.0); Lymphocyte % 3.8 %; Mean Corpuscular HGB Conc 33 g/dL (31-36); Mean Corpuscular Hemoglobin 32 pg (27-31); Mean Corpuscular Volume 97 fL (80-94); Mean Platelet Volume 7.9 fL (7.4-10.4); Platelet Count 258 10^3/uL (150-450); Red Blood Count 4.13 10^6 /uL (4.18-5.48); Red Cell Distribution Width 17 % (10-15); White Blood Count 11.1 10^3/uL (3.5-10.8)
[2019-01-12 05:45] LABS: HDL Cholesterol 51.6 mg/dL
[2019-01-12 05:50] LABS: Albumin 3.5 g/dL (3.2-5.2); Albumin/Globulin Ratio 1.2 (1-3); Calcium 9.5 mg/dL (8.6-10.3); EGFR African American 70.3 (>60); EGFR Non-African American 58.1 (>60); Indirect Bilirubin 0.3 mg/dL (0.3-1.0); Magnesium 1.5 mg/dL (1.9-2.7); Phosphorus 4.5 mg/dL (2.5-5.0); Potassium 4.9 mmol/L (3.5-5.0); Total Bilirubin 0.4 mg/dL (0.2-1.0); Total Protein 6.5 g/dL (6.4-8.9)
[2019-01-12 06:11] LABS: TSH (Thyroid Stimulating Horm) 1.19 mcIU/mL (0.34-5.60)
[2019-01-12] MEDS ORDERED: Perflutren Lipid Microsphere* 3 ML VIAL ONE (07:49)
[2019-01-12] MEDS ORDERED: Magnesium Sulfate 2 GM IV* 2 GM/50 ML BAG IVPB ONE (08:32)
[2019-01-12] MEDS: Mometasone/Formoter 100/5 MDI INH SCH ×2 (08:33→21:28)
[2019-01-12] MEDS: Albuterol 2.5 MG/3 ML NEB.SOL* (0.083%) INH PRN ×2 (08:33→22:18)
[2019-01-12] MEDS: Aspirin EC TAB* 81 MG TAB.EC PO SCH (08:39)
[2019-01-12] MEDS: traMADol TAB* 50 MG PO PRN (08:39)
[2019-01-12] MEDS: Cefdinir cap* 300 MG CAP PO SCH ×2 (08:39→21:28)
[2019-01-12] MEDS: Atenolol TAB* 50 MG PO SCH (08:40)
[2019-01-12] MEDS: amLODIPine TAB* 5 MG PO SCH (08:40)
[2019-01-12] MEDS: Gabapentin CAP(*) 400 MG PO SCH ×2 (08:41→14:54)
[2019-01-12] MEDS: Magnesium Oxide TAB* 400 MG PO SCH ×2 (08:41→21:27)
[2019-01-12] MEDS: predniSONE TAB* 20 MG PO SCH (08:41)
[2019-01-12] MEDS: Azithromycin TAB* 250 MG PO SCH (08:41)
[2019-01-12] MEDS: Cyanocobalamin INJ * 1,000 MCG/ML VIAL 1 ML VIAL IM SCH (09:11)
[2019-01-12] MEDS ORDERED: Iodixanol* (CONTRAST) 320 MG/ML 100 ML SDV IV ONE (11:51)
[2019-01-12] MEDS: Bismuth Subsalicylate* 524 MG/30 ML BTL PO PRN ×2 (14:53→22:17)
[2019-01-12] MEDS ORDERED: Polyethylene Glycol 3350 BTL* 238 GM BTL PO ONE (16:03)
--- NOTE | 2019-01-12 16:24 | PN ---
Subjective Date of Service: 01/12/19 Interval History: Patient seen today, he is still complaining of increase shortness of breath and wheezing with minimal exertions. Given his ongoing dyspnea, did order CTA to rule out PE and was negative. only significant finding were COPD changes. no pleural effusions. He is complaining of heart burn and constipation. Past Medical History: Unchanged from Admission Objective Active Medications: Acetaminophen (Tylenol Tab*) 975 mg PO Q8H PRN PRN Reason: MILD PAIN or TEMP > 100.4 Last Admin: 01/11/19 17:18 Dose: 975 mg Albuterol (Ventolin 2.5 Mg/3 Ml Neb.Kourtney*) 2.5 mg INH Q2H PRN PRN Reason: sob/wheezing Last Admin: 01/12/19 08:33 Dose: 2.5 mg Amitriptyline HCl (Elavil Tab*) 150 mg PO BEDTIME [facility] Last Admin: 01/11/19 20:56 Dose: 150 mg Amlodipine Besylate (Norvasc Tab*) 5 mg PO DAILY [facility] Last Admin: 01/12/19 08:40 Dose: 5 mg Aspirin (Aspirin Ec Tab*) 81 mg PO DAILY [facility] Last Admin: 01/12/19 08:39 Dose: 81 mg Atenolol (Tenormin Tab*) 100 mg PO DAILY [facility] Last Admin: 01/12/19 08:40 Dose: 100 mg Azithromycin (Zithromax Tab*) 250 mg PO DAILY [facility] Last Admin: 01/12/19 08:41 Dose: 250 mg Bismuth Subsalicylate (Peptic Relief*) 262 mg PO Q4HR PRN PRN Reason: heart burn Last Admin: 01/12/19 14:53 Dose: 262 mg Cefdinir (Cefdinir Cap*) 300 mg PO BID [facility] Last Admin: 01/12/19 08:39 Dose: 300 mg Cyanocobalamin (Vitamin B12 Inj *) 1,000 mcg IM DAILY [facility] Last Admin: 01/12/19 09:11 Dose: 1,000 mcg Diltiazem HCl (Cardizem Tab*) 30 mg PO Q6HR [facility] Last Admin: 01/12/19 12:30 Dose: 30 mg Enoxaparin Sodium (Lovenox(*)) 40 mg SUBCUT Q24H [facility] Last Admin: 01/11/19 21:01 Dose: 40 mg Famotidine (Pepcid Tab*) 20 mg PO BID PRN PRN Reason: reflux Last Admin: 01/11/19 20:56 Dose: 20 mg Gabapentin (Neurontin Cap(*)) 600 mg PO BEDTIME [facility] Last Admin: 01/11/19 20:56 Dose: 600 mg Gabapentin (Neurontin Cap(*)) 1,200 mg PO BID@0900,1500 [facility] Last Admin: 01/12/19 14:54 Dose: 1,200 mg Magnesium Oxide (Magox 400 Tab*) 800 mg PO BID [facility] Last Admin: 01/12/19 08:41 Dose: 800 mg Mometasone Furoate/Formoterol Fumar (Dulera 100/5 Mdi*) 2 puff INH BID [facility] Last Admin: 01/12/19 08:33 Dose: 2 puff Nicotine Polacrilex (Nicotine Gum*) 2 mg PO Q2H PRN PRN Reason: NICOTINE CRAVINGS Last Admin: 01/09/19 19:36 Dose: 2 mg Prednisone (Deltasone Tab*) 40 mg PO DAILY [facility] Last Admin: 01/12/19 08:41 Dose: 40 mg Tramadol HCl (Ultram*) 50 mg PO BEDTIME [facility] Last Admin: 01/11/19 20:57 Dose: 50 mg Tramadol HCl (Ultram*) 50 mg PO Q6H PRN PRN Reason: PAIN - MODERATE Last Admin: 01/12/19 08:39 Dose: 50 mg Vital Signs - 8 hr 01/12/19 01/12/19 01/12/19 08:36 08:39 08:41 Temperature Pulse Rate 78 Respiratory 18 19 20 Rate Blood Pressure (mmHg) O2 Sat by Pulse 98 Oximetry 01/12/19 01/12/19 01/12/19 10:39 11:15 11:19 Temperature 97.4 F Pulse Rate 58 Respiratory 20 16 Rate Blood Pressure 141/63 (mmHg) O2 Sat by Pulse 93 90 Oximetry 01/12/19 01/12/19 13:19 14:54 Temperature Pulse Rate Respiratory 19 Rate Blood Pressure (mmHg) O2 Sat by Pulse 95 Oximetry Oxygen Devices in Use Now: None Appearance: awake, alert. no distress. anxious Eyes: No Scleral Icterus, - Ears/Nose/Mouth/Throat: NL Teeth, Lips, Gums, Mucous Membranes Moist Neck: NL Appearance and Movements; NL JVP, Trachea Midline Respiratory: - - wheezing scaterred throughout the lung field Cardiovascular: NL Sounds; No Murmurs; No JVD, - - irregularly irregular Abdominal: NL Sounds; No Tenderness; No Distention - obese, non tender Neurological: Alert and Oriented x 3 Result Diagrams: 01/12/19 05:01 01/12/19 05:01 Additional Lab and Data: Lab Results 01/03/19 01/03/19 01/03/19 Range/Units 14:16 14:16 14:16 WBC 17.0 H (3.5-10.8) 10^3/uL RBC 5.42 (4.18-5.48) 10^6 /uL Hgb 17.7 (14.0-18.0) g/dL Hct 52 (42-52) % MCV 95 H (80-94) fL MCH 33 H (27-31) pg MCHC 34 (31-36) g/dL RDW 17 H (10-15) % Plt Count 275 (150-450) 10^3/uL MPV 8.0 (7.4-10.4) fL Neut % (Auto) 84.9 % Lymph % (Auto) 4.9 % [place] % (Auto) 9.3 % Eos % (Auto) 0.5 % Baso % (Auto) 0.4 % Absolute Neuts (auto) 14.4 H (1.5-7.7) 10^3/ul Absolute Lymphs (auto) 0.8 L (1.0-4.8) 10^3/ul Absolute Monos (auto) 1.6 H (0-0.8) 10^3/ul Absolute Eos (auto) 0.1 (0-0.6) 10^3/ul Absolute Basos (auto) 0.1 (0-0.2) 10^3/ul Absolute Nucleated RBC 0.0 10^3/ul Nucleated RBC % 0.0 INR (Anticoag Therapy) 1.11 H (0.82-1.09) ABG pH (7.35-7.45) ABG pCO2 (35-45) mmHg ABG pO2 (80-100) mmHg ABG HCO3 (19-31) mmol/L ABG O2 Saturation (94.0-98.0) % ABG Base Excess (-2.0-2.0) mmol/L Sodium 127 L (135-145) mmol/L Potassium 3.3 L (3.5-5.0) mmol/L Chloride 83 L (101-111) mmol/L Carbon Dioxide 32 (22-32) mmol/L Anion Gap 12 H (2-11) mmol/L BUN 10 (6-24) mg/dL Creatinine 1.16 (0.67-1.17) mg/dL Est GFR ( Amer) 78.8 (>60) Est GFR (Non-Af Amer) 65.1 (>60) BUN/Creatinine Ratio 8.6 (8-20) Glucose 127 H (70-100) mg/dL Calcium 9.7 (8.6-10.3) mg/dL Total Bilirubin 1.30 H (0.2-1.0) mg/dL AST 19 (13-39) U/L ALT 14 (7-52) U/L Alkaline Phosphatase 74 (34-104) U/L Total Creatine Kinase 70 (10-223) U/L CK-MB (CK-2) 1.5 (0.6-6.3) ng/mL Troponin I 0.01 (<0.04) ng/mL C-Reactive Protein 119.60 H (<8.01) mg/L C-React Prot High Sens Cancelled B-Natriuretic Peptide (<=100) pg/mL Total Protein 8.4 (6.4-8.9) g/dL Albumin 4.4 (3.2-5.2) g/dL Globulin 4.0 (2-4) g/dL Albumin/Globulin Ratio 1.1 (1-3) 01/03/19 01/03/19 01/03/19 Range/Units 14:16 16:20 16:53 WBC (3.5-10.8) 10^3/uL RBC (4.18-5.48) 10^6 /uL Hgb (14.0-18.0) g/dL Hct (42-52) % MCV (80-94) fL MCH (27-31) pg MCHC (31-36) g/dL RDW (10-15) % Plt Count (150-450) 10^3/uL MPV (7.4-10.4) fL Neut % (Auto) % Lymph % (Auto) % [place] % (Auto) % Eos % (Auto) % Baso % (Auto) % Absolute Neuts (auto) (1.5-7.7) 10^3/ul Absolute Lymphs (auto) (1.0-4.8) 10^3/ul Absolute Monos (auto) (0-0.8) 10^3/ul Absolute Eos (auto) (0-0.6) 10^3/ul Absolute Basos (auto) (0-0.2) 10^3/ul Absolute Nucleated RBC 10^3/ul Nucleated RBC % INR (Anticoag Therapy) (0.82-1.09) ABG pH 7.59 H (7.35-7.45) ABG pCO2 31 L (35-45) mmHg ABG pO2 59 L* (80-100) mmHg ABG HCO3 31.0 (19-31) mmol/L ABG O2 Saturation 94.4 (94.0-98.0) % ABG Base Excess 8.1 H (-2.0-2.0) mmol/L Sodium (135-145) mmol/L Potassium (3.5-5.0) mmol/L Chloride (101-111) mmol/L Carbon Dioxide (22-32) mmol/L Anion Gap (2-11) mmol/L BUN (6-24) mg/dL Creatinine (0.67-1.17) mg/dL Est GFR ( Amer) (>60) Est GFR (Non-Af Amer) (>60) BUN/Creatinine Ratio (8-20) Glucose (70-100) mg/dL Calcium (8.6-10.3) mg/dL Total Bilirubin (0.2-1.0) mg/dL AST (13-39) U/L ALT (7-52) U/L Alkaline Phosphatase (34-104) U/L Total Creatine Kinase (10-223) U/L CK-MB (CK-2) (0.6-6.3) ng/mL Troponin I 0.01 (<0.04) ng/mL C-Reactive Protein (<8.01) mg/L C-React Prot High Sens B-Natriuretic Peptide 144 H (<=100) pg/mL Total Protein (6.4-8.9) g/dL Albumin (3.2-5.2) g/dL Globulin (2-4) g/dL Albumin/Globulin Ratio (1-3) Microbiology and Other Data: Microbiology 01/04/19 01:49 Legionella Urinary Antigen - Final Urine Negative Legionella Antigen Streptococcus pneumoniae Ag Screen - Final Negative S. pneumo Antigen Assess/Plan/Problems-Billing 58M with COPD/asthma with active tobacco use, HTN and h/o afib, who presented with SOB and scrotal swelling, and was admitted for a COPD exacerbation and scrotal and groin cellulitis. - Patient Problems (1) COPD exacerbation Current Visit: Yes Status: Acute Code(s): J44.1 - CHRONIC OBSTRUCTIVE PULMONARY DISEASE W (ACUTE) EXACERBATION SNOMED Code(s): 871518523 Comment: - pt reports continued smoking given his worsening symptomatology. - I did resume him back on steroid and antibiotics. Prednisone, cefdinir and zithromax - continue nebs prn - encourage tobacco cessation - CT chest no pneumoanie, simply COPD. willl treat for 5 days for exacerbations with Azithromycin, but will keep him on cefdinir given his scrotum cellulitis - Did not qualify for O2 at home. saturation was 90% with ambulations (2) Cellulitis of scrotum Current Visit: Yes Status: Acute Code(s): N49.2 - INFLAMMATORY DISORDERS OF SCROTUM SNOMED Code(s): 38469934 Comment: - Cellulitis and sharron intertrigo of the scrotum and groin bilaterally. Seen by uro who recommends to continue abx. - switch IV CTX (01/03 - 01/06) to PO Bactrim (01/07 - 01/12); good response; However I will place him on cefdinir for now as it does have benefit for pulmonary coverage as well - s/p fluconazole (01/04 - 01/07) - encourage good skin hygeine (3) Heart failure with preserved ejection fraction Current Visit: Yes Status: Acute Code(s): I50.30 - UNSPECIFIED DIASTOLIC ( CONGESTIVE) HEART FAILURE SNOMED Code(s): 603065446 Comment: - Was previously on HCTZ for BP, but presented with low Na, K, and Mg. Started to experience LE edema off diuretic, - Off furosemide 40mg today as he is getting pre-renal. - Repeat CXR no CHF, and Echo Pending - His Edema could be related to his gabapentin (4) Leg pain, bilateral Current Visit: Yes Status: Acute Code(s): M79.604 - PAIN IN RIGHT LEG; M79.605 - PAIN IN LEFT LEG SNOMED Code(s): 96645147 Comment: - suspect secondary to eletrolytes disturbance - However, given his smoking history, sedentary style - U/S negative for DVT - Given his dyspnea and positive D-Dimer. CTA negative for PE - He probably does have vascular insufisiency (5) GERD (gastroesophageal reflux disease) Current Visit: Yes Status: Acute Code(s): K21.9 - GASTRO-ESOPHAGEAL REFLUX DISEASE WITHOUT ESOPHAGITIS SNOMED Code(s): 546099102 Comment: - Stopping PPI given profound hypomagnesmia. - start on H2 dashawn prn (6) Hyponatremia Current Visit: Yes Status: Acute Code(s): E87.1 - HYPO-OSMOLALITY AND HYPONATREMIA SNOMED Code(s): 36591236 Comment: - Likely from HCTZ and amitryptiline (7) Tobacco abuse Current Visit: Yes Status: Acute Code(s): Z72.0 - TOBACCO USE SNOMED Code( s): 477917494 Comment: - Encourage smoking cessation. Pt motivated. - He reassured me he is not going to smoke again (8) Atrial fibrillation Current Visit: No Status: Acute Priority: Medium Code(s): I48.91 - UNSPECIFIED ATRIAL FIBRILLATION SNOMED Code(s): 14736774 Comment: - He was in NSR - He use to follow with Dr. Cornelius he stopped following as he could not afford his Xaretlo - I did financial health counselor him and agreed to resume. Will start him on 20 mg today - Atenolol 100 mg daily, last night he required Cardizem [address] him on cardizem CD and monitor him on tele till tomorrow - Echo pending (9) DVT prophylaxis Current Visit: Yes Status: Acute Code(s): XYC8740 - SNOMED Code(s): 726859000 Comment: - was lovenox, now started Xaretlo given his Afib
[2019-01-12] MEDS ORDERED: Polyethylene Glycol 3350* 17 GM PACKET PO ONE (16:30)
[2019-01-12] MEDS ORDERED: Rivaroxaban TAB(*) 20 MG TAB PO SCH (17:00)
[2019-01-12] MEDS: Diltiazem CD CAP* 180 MG PO SCH (17:28)
--- NOTE | 2019-01-12 21:26 | ECHO ---
*[facility]* [place] [address] Fax #: [phone] Transthoracic Echocardiogram Patient: Jairo Soto : 1960 Study Date: 01/12/2019 Age: 58 Gender: M HR: 81 bpm Height: 70 in /177.8 cm BSA: 2.29 m^2 Weight: 249.5 lb /113.4 kg BMI: 35.9 kg/m^2 *Farrowing Worker: Annetta Vivar [facility] *Referring Physician: * David RingReading Physician: * Samaria Reyes MD Indications: SOB. History: Atrial fibrillation. Chronic obstructive pulmonary disease. Risk factors: Current tobacco use. Hypertension. Conclusions Summary: - Procedure narrative: Image quality was suboptimal. Intravenous Definity , 2.5 mlswas administered. - Left ventricle: The cavity size is at the upper limits of normal. Wall thickness is mildly increased. Systolic function is normal. The estimated ejection fraction is 60%. - Right ventricle: The cavity size is normal. Wall thickness is mildly to moderately increased. Systolic function is normal. - Aorta: The ascending aorta internal dimension in the A-P direction, maximal systolic dimension is 4.1 cm. - Ascending aorta: The ascending aorta is moderately dilated. - Pericardium, extracardiac: A small pericardial effusion is identified. There is no evidence of hemodynamic compromise. - Compared with prior echocardiogram of 08/31/17, ejection fraction is stable, right ventricular hypertrophy and systolic function stable, valve function stable. Ascending aorta diameter has increased from 3.8 cm. Study data: Transthoracic echocardiogram. Procedure: Transthoracic echocardiography was performed. Image quality was suboptimal. Intravenous Definity , 2.5 mlswas administered. Complete 2D, spectral Doppler, and color flow Doppler. Location: Bedside. Patient status: Inpatient. Patient room number: 412 01. Rhythm: Atrial fibrillation. Findings Left ventricle: The cavity size is at the upper limits of normal. Wall thickness is mildly increased. Systolic function is normal. The estimated ejection fraction is 55-60%. Wall motion is normal; there are no regional wall motion abnormalities. Left ventricular diastolic function parameters are indeterminate. Right ventricle: The cavity size is normal. Wall thickness is mildly to moderately increased. Systolic function is normal. Left atrium: The atrium is mildly dilated. Right atrium: The atrium is moderately dilated. Mitral valve: The leaflets are normal thickness. There is no evidence of stenosis. There is no significant regurgitation. Aortic valve: The annulus is mildly calcified. The valve is trileaflet. The leaflets are normal thickness. There is no evidence of stenosis. There is no significant regurgitation. Tricuspid valve: The leaflets are normal thickness. There is no evidence of stenosis. There is no significant regurgitation. Pulmonic valve: Not well visualized. There is no significant regurgitation. Aorta: Ascending aorta: The ascending aorta is moderately dilated. Aortic arch: The aortic arch is appears normal. The aortic root appears normal. Pericardium: A small pericardial effusion is identified. There is no evidence of hemodynamic compromise. Pulmonary arteries: Not well visualized. Systolic pressure can not be accurately estimated. Systemic veins: Inferior vena cava: The vessel is dilated. There is (< 50%) respiratory change in the IVC dimension. Measurements Left ventricle Value Ref Aortic valve Value Ref COREEN, LAX 5.7 cm 4.2 - 5.8 Yaw diam, ED 2.2 cm ---- ESD, LAX 3.7 cm 2.5 - 4.0 Peak v, S 1.21 m/sec ---- FS, LAX 35 % 25 - 43 Peak grad, S 6.0 mm Hg ---- PW, ED, LAX (H) 1.2 cm 0.6 - 1.0 EF 64 % 52 - 72 Mitral valve Value Ref E', lat yaw, TDI (L) 8.7 cm/sec >=10.0 Peak E 1.22 m/sec ---- E/e', lat yaw, 14 Peak A 0.02 m/sec ---- TDI Decel time 141 ms ---- PHT 86 ms ---- LVOT Value Ref Mean grad, D 2.0 mm Hg ---- Peak yan, S 1 m/sec Peak grad, D 6.0 mm Hg ---- Peak E/A ratio 76.3 ---- Ventricular septum Value Ref MVA, PHT 2.7 cm^2 ---- IVS, ED (H) 1.3 cm 0.6 - 1.0 Pulmonic valve Value Ref Right ventricle Value Ref Peak v, S 0.67 m/sec ---- COREEN, LAX 3.6 cm Peak grad, S 2.0 mm Hg ---- Left atrium Value Ref Aortic root Value Ref AP dim, ES (H) 5.00 cm 3.00 - Root diam 3.4 cm <4.4 4.00 ML dim, A4C 4.6 cm Ascending aorta Value Ref SI dim, A4C 6.4 cm AAo AP diam, S 4.1 cm ---- Vol/bsa, ES, A/L (H) 40 ml/m^2 16 - 34 Aortic arch Value Ref Right atrium Value Ref Arch diam 2.9 cm ---- ML dim, ES, A4C (H) 5.1 cm 2.6 - 4.4 SI dim, ES, A4C (H) 5.8 cm 3.4 - 5.3 Inferior vena cava Value Ref Estimated RAP 8 mm Hg Diam 2.8 cm ---- Legend: (L) and (H) ceferino values outside specified reference range. Prepared and electronically signed by Samaria Reyes MD 01/12/2019 21:25
[2019-01-12] MEDS: Gabapentin CAP(*) 300 MG PO SCH (21:27)
[2019-01-12] MEDS: Amitriptyline TAB* 50 MG PO SCH (21:28)
[2019-01-12] MEDS: Acetaminophen TAB* 325 MG PO PRN (21:28)
[2019-01-13 06:12] LABS: Calcium 9.3 mg/dL (8.6-10.3); EGFR African American 74.3 (>60); EGFR Non-African American 61.4 (>60); Magnesium 1.7 mg/dL (1.9-2.7); Phosphorus 4.4 mg/dL (2.5-5.0); Potassium 3.4 mmol/L (3.5-5.0)
[2019-01-13] MEDS: Acetaminophen TAB* 325 MG PO PRN (07:30)
[2019-01-13] MEDS: Aspirin EC TAB* 81 MG TAB.EC PO SCH (07:30)
[2019-01-13] MEDS: Gabapentin CAP(*) 400 MG PO SCH (07:31)
[2019-01-13] MEDS: amLODIPine TAB* 5 MG PO SCH (07:32)
[2019-01-13] MEDS: Atenolol TAB* 50 MG PO SCH (07:32)
[2019-01-13] MEDS: Magnesium Oxide TAB* 400 MG PO SCH (07:32)
[2019-01-13] MEDS: Diltiazem CD CAP* 180 MG PO SCH (07:32)
[2019-01-13] MEDS: Cyanocobalamin INJ * 1,000 MCG/ML VIAL 1 ML VIAL IM SCH (07:33)
[2019-01-13] MEDS: predniSONE TAB* 20 MG PO SCH (07:33)
[2019-01-13] MEDS: Azithromycin TAB* 250 MG PO SCH (07:33)
[2019-01-13] MEDS: Cefdinir cap* 300 MG CAP PO SCH (07:33)
[2019-01-13] MEDS: Mometasone/Formoter 100/5 MDI INH SCH (08:11)
[2019-01-13] MEDS: Albuterol 2.5 MG/3 ML NEB.SOL* (0.083%) INH PRN (08:20)
[2019-01-13] MEDS ORDERED: Potassium Chlor TAB* 20 MEQ TAB.ER PO ONE (08:35)
[2019-01-13] MEDS: Bismuth Subsalicylate* 524 MG/30 ML BTL PO PRN (10:22)
[2019-01-13 11:19] VITALS: BP 115/78
--- NOTE | 2019-01-13 13:27 | DS ---
CC: Dr. Ernesto Collier: Dr. Samaria Reyes DISCHARGE SUMMARY: DATE OF ADMISSION: 01/03/19 DATE OF DISCHARGE: 01/13/19 PRIMARY CARE PROVIDER: Dr. Ernesto Collier. FINAL DISCHARGE DIAGNOSES: 1. Chronic obstructive pulmonary disease exacerbation. 2. Cellulitis of scrotum. 3. Congestive heart failure, diastolic, chronic, stable. 4. Bilateral lower extremity pain, suspect secondary to neuropathy and electrolyte disturbance. 5. Gastroesophageal reflux disease. 6. Hyponatremia related to his diuretic and possible amitriptyline. 7. Chronic tobacco use. 8. Atrial fibrillation, paroxysmal, with brief episode of rapid ventricular response while inpatient, resolved by implementing Cardizem orally. HOSPITAL COURSE: The patient presented to [facility] on 01/03/19, for chief complaint of shortness of breath and swelling and redness of his scrotum. 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 Reyes regarding to his history of AFib. He did not follow for his appointment nor with his oral anticoagulation ( Xarelto). On admission, he was noted to have notable shortness of breath and wheezing and at that time, he expressed that he has been battling a course of bronchitis for the past month or so without any improvement. He had white count of 17,000 on admission. Therefore, he was started on azithromycin and ceftriaxone along with Solu-Medrol with nebulizer treatment and Dulera. His cellulitis as well was covered with antibiotic mentioned above. He remained in the hospital from 01/12/19 and he was under the care of the hospitalist service and I took care of the patient starting 01/11/19, at which time he was feeling worse than the past few days in terms of breathing and shortness of breath. Upon review, I did notice that his steroid has been tapered off and his antibiotic was switched to Bactrim to cover his scrotal cellulitis. Therefore, I re-implemented his antibiotic orally, Vantin and azithromycin and I re- initiated his steroids in a oral form, prednisone. At the same time, given his decline in symptomatology of his shortness of breath and him complaining of lower extremity pain and edema, I did an ultrasound of the lower extremity which was negative for DVT and that was followed by CT angiogram of chest, was negative for PE. Echocardiogram also was ordered to assess the LV function which revealed normal systolic function with ejection fraction of 60%, slightly thickening of right ventricle and slight increase in the aorta up to 4.1 cm, which is mildly dilated. Therefore, I discontinued his Lasix as I did not think that his edema related to heart failure is most likely related to his gabapentin. Over the following 3 days, from 01/11/19 to today, his symptomatology improved with implementation of COPD treatment with steroid and antibiotic and adjustment of his cardiac medication to control his ventricular rate of his A-Fib. I did not increase his atenolol, although concerned that he may have some peripheral vascular disease as he is complaining of leg pain and claudication. I did discontinue his amlodipine and I substituted for diltiazem extended release of 180. This morning, 01/13/19, his pulse is 72, rate controlled. He is feeling better. He is on room air. He is saturating 90% and above even with ambulation. Given the above workup and clinical improvement , I deemed stable for discharge with strict instruction to follow up with his appointment of his primary, follow up with Dr. Reyes, Cardiology and take all medications as prescribed and maintain smoking cessation. PHYSICAL EXAMINATION: His vital signs; temperature 97.7, pulse 79 to 68, respiratory 16, satting 90% to 92% on room air, blood pressure 141/72. General : He is awake, alert, sitting in the chair, and provided the history in full sentence. Head and neck: Normocephalic, atraumatic. He does have piercing. Lungs: Fine expiratory wheezing, improved comparing to the past 24 hours. Cardiovascular: S1, S2, irregularly irregular. Abdomen: Obese, soft, nontender, nondistended. Extremities: +1 nonpitting edema. Good peripheral pulse, slightly diminished on the left comparing to the right, however. DIAGNOSTIC STUDIES/LAB DATA: He had multiple CBCs, most pronounced for white count of 17,000 on admission down to 11,000 on 01/12/19. D-dimer was 301, slightly elevated but this was followed with ultrasound of leg which was negative and CT angiogram of the chest was negative for PE, positive for emphysema. Chemistry was significant for hyponatremia which improved up to 133, hypokalemia while he was on diuretics, up to 3.4, and hypomagnesemia with magnesium as low as 1.0 on presentation, up to 1.7 with supplementation intravenously and orally. B12 deficiency with B12 of 120. Imaging: He had a chest x-ray on 01/03/19, which did not reveal any infiltrate or pneumonia, finding was suggestive of COPD. Testicular ultrasound given his scrotal edema and erythema shows no parenchymal mass, slight scrotal wall edema. Ultrasound of lower extremity was negative for DVT. CT of the thorax was negative for PE, was positive for emphysema finding. Cardiovascular: He had an echocardiogram on 01/12/19, which reveals ejection fraction preserved 60%, diastolic function could not be commented on, slight right ventricular hypertrophy, slightly dilated aortic root at 4.1 cm. DISCHARGE MEDICATIONS: The patient is being discharged on the following medications: Resume amitriptyline 150 mg at bedtime. Discontinue amlodipine 5 mg daily as it was substituted to diltiazem. 1. Diltiazem 180 mg CD once a day. 2. Aspirin 81 mg daily. 3. Atenolol, resume 100 mg daily. 4. B12 of 1000 mcg daily. 5. Gabapentin, resume home med 600 mg at bedtime and 1200 mg b.i.d. 6. Albuterol nebulizer p.r.n. 7. Azithromycin 250 mg daily for 3 days. 8. Cefdinir 300 mg b.i.d. for 5 more days. 9. Famotidine 20 mg b.i.d. and he was instructed to discontinue his PPI due to his hypomagnesemia. 10. Magnesium oxide 800 mg b.i.d. 11. Dulera 2 puffs b.i.d. 12. Nicotine gum. 13. Prednisone 40 mg for 3 days, 30 mg for 3 days, 20 mg for 3 days, and 10 mg for 3 days. 14. Xarelto 20 mg once a day. DISCHARGE INSTRUCTIONS: Follow up with the primary care in 1 to 2 weeks. Follow up with Dr. Reyes in 3 to 4 weeks. Take all medications including Xarelto, Cardizem, and antibiotic as well as steroid. Smoking cessation education provided and counseling. Note to PCP: Please arrange for followup on his chemistry including his magnesium and potassium and re-evaluation of his B12 level. An attempt to arrange for the patient 30-day supply with either sample versus voucher, being worked on with our corrections caseworker. DISCHARGE CONDITION: STABLE DISCHARGE DISPOSITION: HOME [id number]/CPS #: [id number] JESE
== END 2019-01-13 14:00 | disposition home or self-care (01) | DRG 190 ==
LOC: ED 14:00 → MED 19:13
PROVIDERS: ADMIT Internal Medicine; ATTEND Internal Medicine
DX: J44.1 Chronic obstructive pulmonary disease with (acute) exacerbation (principal); I50.33 Acute on chronic diastolic (congestive) heart failure; E87.1 Hypo-osmolality and hyponatremia; L03.314 Cellulitis of groin; N49.2 Inflammatory disorders of scrotum; G62.9 Polyneuropathy, unspecified; E87.8 Other disorders of electrolyte and fluid balance, not elsewhere classified; K21.9 Gastro-esophageal reflux disease without esophagitis; I48.0 Paroxysmal atrial fibrillation; F17.210 Nicotine dependence, cigarettes, uncomplicated; E87.6 Hypokalemia; E83.42 Hypomagnesemia; E53.8 Deficiency of other specified B group vitamins; I11.0 Hypertensive heart disease with heart failure; G47.30 Sleep apnea, unspecified; E89.0 Postprocedural hypothyroidism; K59.00 Constipation, unspecified; R12 Heartburn; F41.9 Anxiety disorder, unspecified; Z96.643 Presence of artificial hip joint, bilateral; Z88.6 Allergy status to analgesic agent; Z85.89 Personal history of malignant neoplasm of other organs and systems; Z88.5 Allergy status to narcotic agent; Z91.19 Patient's noncompliance with other medical treatment and regimen; Z79.82 Long term (current) use of aspirin; Z79.01 Long term (current) use of anticoagulants; Z88.8 Allergy status to other drugs, medicaments and biological substances; Z82.49 Family history of ischemic heart disease and other diseases of the circulatory system; Z80.0 Family history of malignant neoplasm of digestive organs; Z80.8 Family history of malignant neoplasm of other organs or systems; Z72.89 Other problems related to lifestyle; Z87.01 Personal history of pneumonia (recurrent); Z85.828 Personal history of other malignant neoplasm of skin; Z80.3 Family history of malignant neoplasm of breast
CPT/HCPCS: 36415; 71046; 71275; 76870; 80048; 80053; 80061; 80076; 81003; 81015; 82550; 82553; 82607; 82803; 83735; 83880; 84100; 84443; 84484; 85025; 85027; 85379; 85610; 86140; 87040; 87899; 93005; 93306; 93970; 94640; 94660; 99285; 99406; A9270-GY; C8929; G8978-GP-CK; G8979-GP-CI; J0456; J0696; J1650; J1940; J2765; J2920; J2930; J3420; J3475; J7512; Q9967